=== PATIENT | female | born 1960 | race Caucasian/White ===

== ENCOUNTER → 2016-09-27 | Outpatient (CLI) | payer BC ==
[~2016-09-27] MED LIST: AMARYL2 MG PO; AMARYL4 MG PO; AMOXIL500 MG PO; APAP/HYDROCODON1 T46 PO; ASPI-COR81 M1 PO; ASPIRIN CHEWABL81 M1 PO; ASPIRIN81 M1 PO; AUGMENTIN 875 M1 TAB PO; AUGMENTIN 875875 MG PO; BIAXIN FILMTAB250 MG PO; BUTRANS10 MCG/HR TD; BYETTA10 MCG/0.0 PO; BYETTA10 MCG/0.0 SC; CAPOTEN25 MG PO; CAPTOPRIL25 MG PO; CEPHALEXIN500 M1 PO; CIPRODEX 0.3%-7.5 ML OT; CLARITIN10 MG PO; Carafate1 GM PO; DARVOCET N 1001 TAB PO; DEXILANT60 M1 PO; DEXILANT60 MG PO; DIABETA2.5 MG PO; ELAVIL25 MG PO; FIORICET 325 MG1 TAB PO; FLEXERIL10 MG PO; FLEXERIL5 MG PO; FLONASE ALLERG9.9 ML NAS; GEMFIBROZIL600 MG PO; GLUCOPHAGE500 MG PO; HUMALOG100 U/ML SC; HUMULIN R100 U/ML SC; HYDROCODONE BIT1 T11 PO; JANUVIA100 MG PO; JANUVIA50 MG PO; LANTUS100 U/ML SQ; LASIX40 MG PO; LEVEMIR10 ML SC; LEVEMIR100 U/ML SC; LOMOTIL 0.025 M1 TAB PO; LORCET 10/650 61 TA1 PO; LORCET PLUS PO; LYRICA100 M1 PO; LYRICA100 MG PO; LYRICA25 MG PO; LYRICA75 MG PO; MACROBID100 M1 PO; MOTRIN600 MG PO; MOTRIN800 MG PO; NAPROSYN500 MG PO; NIZORAL 2%15 GM PO; NORCO 325 MG-101 TAB PO; NOVOLOG FLEX100 U/ML SC; NYSTOP100000 U/G T; PERCOCET 325 MG1 TA2 PO; PHENERGAN25 M1 PO; PHENERGAN25 M3 PO; PREDNISONE10 MG PO; PREDNISONE20 M1 PO; PREDNISONE20 MG PO; PRILOSEC20 M1 PO; PRILOSEC40 MG PO; PROMETHAZINE25 M1 PO; PROMETHAZINE25 MG/M1 PO; PROTONIX40 MG PO; ROBAXIN-750750 MG PO; ROBAXIN500 MG PO; ROBITUSSIN AC 110 ML PO; ROBITUSSIN DM 105 ML PO; STARLIX120 MG PO; SYNTHROID,LEV200 MCG PO; SYNTHROID0.112 MG PO; Synthroid,Lev125 MCG PO; TOPAMAX100 MG PO; TOPAMAX200 MG PO; TORADOL10 MG PO; TRAZADONE HYDR100 MG PO; TRAZODONE HCL150 MG PO; TRESIBA FL200 UNIT/1 SC; TRESIBA FL200 UNIT/1 SQ; TRICOR145 MG PO; ULTRAM50 MG PO; VICODIN 5/500 505 MG PO; VICODIN 500 MG-1 TAB PO; VICTOZA6 MG/ML SC; VIVELLE TD; ZANTAC150 MG PO; ZITHROMAX Z PA250 MG PO; ZITHROMAX250 MG PO; ZOCOR80 MG PO; ZYRTEC10 M1 PO; ZYRTEC10 MG PO; [UNRECOGNIZED DRUG - OTHER] PO
== END | disposition home or self-care (01) ==
LOC: RAD 12:35
DX: M47.894 Other spondylosis, thoracic region (principal); R50.9 Fever, unspecified; R05 Cough; R06.02 Shortness of breath; R09.89 Other specified symptoms and signs involving the circulatory and respiratory systems; E11.9 Type 2 diabetes mellitus without complications; I10 Essential (primary) hypertension

== ENCOUNTER 2016-12-10 13:56 | Emergency (ER) | payer BC ==
[~2016-12-10 13:56] MED LIST changes: -NOVOLOG FLEX100 U/ML SC; -PHENERGAN25 M3 PO
[2016-12-10 14:56] LABS: BASO % 0.4 % (0.0-1.0); EOS # 0.2 10*3/uL (0.0-0.4); EOS % 2.5 % (1.0-4.0); HEMOGLOBIN 13.5 g/dl (12.0-16.0); LYMPH % 29.3 % (27.0-41.0); MEAN CELL VOLUME 87.3 fl (81.0-99.0); MEAN CORPUSCULAR HGB 29.5 pg (27.0-31.0); MEAN CORPUSCULAR HGB CONC 33.8 g/dl (33.0-37.0); MEAN PLATELET VOLUME 11.9 fl (9.6-12.3); MONO # 0.6 10*3/uL (0.1-1.0); NEUT # 4.1 10*3/uL (2.3-7.9); NEUT % 59.5 % (47.0-73.0); PLATELET COUNT AUTOMATED 104 10*3/uL (130-400); RED BLOOD COUNT 4.58 10*6/uL (4.10-5.10); WHITE BLOOD COUNT 6.9 10*3/uL (4.8-10.8)
[2016-12-10 15:15] LABS: ALBUMIN 3.5 gm/dl (3.1-4.5); ALKALINE PHOSPHATASE 122 U/L (45-117); BILIRUBIN, TOTAL 0.2 mg/dl (0.2-1.0); BUN 23 mg/dl (7-24); CARBON DIOXIDE 23 mmol/L (21-32); CHLORIDE 102 mmol/L (98-107); EST GLOM FILT AFRICAN AMERICAN > 60 ml/min; GLUCOSE 368 mg/dL (65-99); POTASSIUM 3.9 mmol/L (3.5-5.1); SGOT/AST 17 IU/L (3-35); SGPT/ALT 28 U/L (12-78); SODIUM 138 mmol/L (136-145); TOTAL PROTEIN 7.2 gm/dL (6.4-8.2)
[2016-12-10] MEDS ORDERED: TRESIBA FL200 UNIT/1 SQ (17:21)
[2016-12-10] MEDS ORDERED: HUMALOG100 U/ML SC (17:21)
[2016-12-10] MEDS ORDERED: NOVOLOG FLEX100 U/ML SC (17:24)
[2016-12-10] MEDS ORDERED: PHENERGAN25 M3 PO (17:25)
== END 2016-12-10 17:34 | disposition home or self-care (01) ==
LOC: ED 13:56
PROVIDERS: Physician Assistant
DX: E11.65 Type 2 diabetes mellitus with hyperglycemia (principal); Z76.0 Encounter for issue of repeat prescription; Z90.49 Acquired absence of other specified parts of digestive tract; Z90.710 Acquired absence of both cervix and uterus; Z98.890 Other specified postprocedural states; Z79.4 Long term (current) use of insulin; Z88.5 Allergy status to narcotic agent; Z88.1 Allergy status to other antibiotic agents; Z88.8 Allergy status to other drugs, medicaments and biological substances

== ENCOUNTER 2017-01-29 17:04 | Emergency (ER) | payer BC ==
[~2017-01-29] VITALS: Wt 97.1 kg
[~2017-01-29 17:04] MED LIST changes: +NOVOLOG FLEX100 U/ML SC; +PHENERGAN25 M3 PO
[2017-01-29] MEDS ORDERED: FELDENE20 MG PO (17:07)
[2017-01-29] MEDS ORDERED: CEPHALEXIN500 M1 PO (20:20)
== END 2017-01-29 20:23 | disposition home or self-care (01) ==
LOC: ED 17:04
DX: L03.116 Cellulitis of left lower limb (principal); Z90.49 Acquired absence of other specified parts of digestive tract; Z79.4 Long term (current) use of insulin; Z95.5 Presence of coronary angioplasty implant and graft; Z88.1 Allergy status to other antibiotic agents; Z88.6 Allergy status to analgesic agent; Z88.8 Allergy status to other drugs, medicaments and biological substances

== ENCOUNTER 2017-02-03 17:21 | Inpatient (IN) | payer BC ==
[~2017-02-03] VITALS: Ht 162.6 cm; Wt 105.5 kg
[~2017-02-03 17:21] MED LIST changes: +FELDENE20 MG PO
[2017-02-03 17:28] VITALS: BP 146/84
[2017-02-03 17:48] LABS: BILIRUBIN NEGATIVE (NEGATIVE); BLOOD NEGATIVE (NEGATIVE); CLARITY CLEAR (CLEAR); COLOR YELLOW (YELLOW); GLUCOSE TRACE (NEGATIVE); KETONE NEGATIVE (NEGATIVE); LEUKO ESTERASE 1+ (NEGATIVE); NITRITE NEGATIVE (NEGATIVE); PROTEIN NEGATIVE (NEGATIVE); SPECIFIC GRAVITY 1.025 (1.005-1.030); UROBILINOGEN 0.2 E.U./dl (0.2-1.0)
[2017-02-03 17:51] LABS: BASO % 0.4 % (0.0-1.0); EOS # 0.1 10*3/uL (0.0-0.4); EOS % 2.3 % (1.0-4.0); HEMATOCRIT 41.7 % (37.0-47.0); HEMOGLOBIN 13.9 g/dl (12.0-16.0); LYMPH # 2.1 10*3/uL (1.3-4.4); LYMPH % 37.4 % (27.0-41.0); MEAN CELL VOLUME 89.5 fl (81.0-99.0); MEAN CORPUSCULAR HGB 29.8 pg (27.0-31.0); MEAN CORPUSCULAR HGB CONC 33.3 g/dl (33.0-37.0); MEAN PLATELET VOLUME 12.6 fl (9.6-12.3); MONO # 0.4 10*3/uL (0.1-1.0); MONO % 7.7 % (3.0-9.0); NEUT % 51.8 % (47.0-73.0); PLATELET COUNT AUTOMATED 99 10*3/uL (130-400); RED BLOOD COUNT 4.66 10*6/uL (4.10-5.10); RED CELL DISTRI WIDTH 13.4 % (0-14.5); WHITE BLOOD COUNT 5.7 10*3/uL (4.8-10.8)
[2017-02-03 18:03] LABS: BACTERIA TRACE; HYALINE CAST 0-2; URINE REFLEX COMMENT YES (NO)
[2017-02-03 18:07] LABS: ALBUMIN 3.5 gm/dl (3.1-4.5); BILIRUBIN, TOTAL 0.2 mg/dl (0.2-1.0); POTASSIUM 3.7 mmol/L (3.5-5.1); TOTAL PROTEIN 7.3 gm/dL (6.4-8.2)
[2017-02-03 19:47] VITALS: BP 126/70
[2017-02-03 20:30] VITALS: BP 130/78
[2017-02-04] VITALS: BP 111/63
[2017-02-04 00:40] LABS: CPK 56 U/L (26-192)
[2017-02-04 00:41] LABS: CKMB 1.4 ng/ml (0.5-3.6)
[2017-02-04 00:42] LABS: TROPONIN I < 0.015 ng/ml (<0.045)
[2017-02-04 06:20] LABS: BASO % 0.4 % (0.0-1.0); EOS # 0.1 10*3/uL (0.0-0.4); EOS % 2.4 % (1.0-4.0); HEMATOCRIT 39.3 % (37.0-47.0); HEMOGLOBIN 13.1 g/dl (12.0-16.0); LYMPH # 1.8 10*3/uL (1.3-4.4); LYMPH % 40.7 % (27.0-41.0); MEAN CELL VOLUME 90.3 fl (81.0-99.0); MEAN CORPUSCULAR HGB 30.1 pg (27.0-31.0); MEAN CORPUSCULAR HGB CONC 33.3 g/dl (33.0-37.0); MEAN PLATELET VOLUME 12.1 fl (9.6-12.3); MONO # 0.4 10*3/uL (0.1-1.0); MONO % 9.3 % (3.0-9.0); NEUT # 2.1 10*3/uL (2.3-7.9); NEUT % 46.8 % (47.0-73.0); PLATELET COUNT AUTOMATED 88 10*3/uL (130-400); RED BLOOD COUNT 4.35 10*6/uL (4.10-5.10); RED CELL DISTRI WIDTH 13.6 % (0-14.5); WHITE BLOOD COUNT 4.5 10*3/uL (4.8-10.8)
[2017-02-04 06:31] LABS: CPK 48 U/L (26-192)
[2017-02-04 06:32] LABS: TROPONIN I < 0.015 ng/ml (<0.045)
[2017-02-04 06:58] LABS: ALKALINE PHOSPHATASE 94 U/L (45-117); BILIRUBIN, TOTAL 0.3 mg/dl (0.2-1.0); BUN 32 mg/dl (7-24); CARBON DIOXIDE 25 mmol/L (21-32); CHLORIDE 112 mmol/L (98-107); CHOLESTEROL 141 mg/dL (<200); EST GLOM FILT AFRICAN AMERICAN > 60 ml/min; FREE T4 1.19 ng/dl (0.76-1.46); GLUCOSE 119 mg/dL (65-99); HDL CHOLESTEROL 36 mg/dl (40-60); LDL CHOLESTEROL 49 mg/dL (9-159); MAGNESIUM 1.8 mg/dL (1.5-2.1); PHOSPHOROUS 4.4 mg/dL (2.5-4.9); POTASSIUM 3.6 mmol/L (3.5-5.1); SGOT/AST 18 IU/L (3-35); SGPT/ALT 26 U/L (12-78); SODIUM 146 mmol/L (136-145); TOTAL PROTEIN 6.1 gm/dL (6.4-8.2); TRIGLYCERIDES 281 mg/dl (<150); VLDL CHOLESTEROL 56 mg/dL (6-40)
[2017-02-04 07:00] LABS: PROTHROMBIN TIME 10.7 SECONDS (9.0-12.4)
[2017-02-04 08:00] VITALS: BP 128/84
[2017-02-04 09:12] LABS: FOLIC ACID 7.67 ng/mL (>5.38); VITAMIN D, 25-HYDROXY 25.1 ng/mL (30-100)
[2017-02-04] MEDS ORDERED: ASPIR LOW81 MG PO (10:07)
[2017-02-04] MEDS ORDERED: ATORVASTATIN CA40 M1 PO (10:09)
[2017-02-04 12:00] VITALS: BP 114/67
[2017-02-04 12:28] LABS: CKMB 0.9 ng/ml (0.5-3.6); CPK 49 U/L (26-192); TROPONIN I < 0.015 ng/ml (<0.045)
[2017-02-04 16:00] VITALS: BP 124/72
[2017-02-04 20:00] VITALS: BP 106/75
[2017-02-05] VITALS: BP 100/58
[2017-02-05 06:10] LABS: BASO % 0.8 % (0.0-1.0); EOS # 0.2 10*3/uL (0.0-0.4); EOS % 3.2 % (1.0-4.0); HEMOGLOBIN 12.6 g/dl (12.0-16.0); LYMPH # 1.8 10*3/uL (1.3-4.4); LYMPH % 37.3 % (27.0-41.0); MEAN CELL VOLUME 91.5 fl (81.0-99.0); MEAN CORPUSCULAR HGB 29.6 pg (27.0-31.0); MEAN CORPUSCULAR HGB CONC 32.3 g/dl (33.0-37.0); MEAN PLATELET VOLUME 12.5 fl (9.6-12.3); MONO # 0.4 10*3/uL (0.1-1.0); MONO % 8.2 % (3.0-9.0); NEUT # 2.4 10*3/uL (2.3-7.9); NEUT % 50.3 % (47.0-73.0); PLATELET COUNT AUTOMATED 80 10*3/uL (130-400); RED BLOOD COUNT 4.26 10*6/uL (4.10-5.10); RED CELL DISTRI WIDTH 13.7 % (0-14.5); WHITE BLOOD COUNT 4.7 10*3/uL (4.8-10.8)
[2017-02-05 06:40] LABS: ALBUMIN 2.8 gm/dl (3.1-4.5); ALKALINE PHOSPHATASE 74 U/L (45-117); BILIRUBIN, TOTAL 0.3 mg/dl (0.2-1.0); CARBON DIOXIDE 25 mmol/L (21-32); CHLORIDE 115 mmol/L (98-107); GLUCOSE 144 mg/dL (65-99); POTASSIUM 3.4 mmol/L (3.5-5.1); SGOT/AST 29 IU/L (3-35); SGPT/ALT 31 U/L (12-78); SODIUM 147 mmol/L (136-145); TOTAL PROTEIN 5.9 gm/dL (6.4-8.2)
[2017-02-05 06:42] LABS: BUN 20 mg/dl (7-24); EST GLOM FILT AFRICAN AMERICAN > 60 ml/min
[2017-02-05 08:00] VITALS: BP 107/66
[2017-02-05 12:00] VITALS: BP 137/72
[2017-02-05 16:00] VITALS: BP 116/59
[2017-02-05 20:00] VITALS: BP 128/70
[2017-02-06] VITALS: BP 121/65
[2017-02-06 08:00] VITALS: BP 134/68
[2017-02-06 12:00] VITALS: BP 120/69
[2017-02-06 16:00] VITALS: BP 100/56
[2017-02-06 20:00] VITALS: BP 149/81
[2017-02-07] VITALS: BP 116/61
[2017-02-07 06:58] LABS: BASO % 0.6 % (0.0-1.0); EOS # 0.2 10*3/uL (0.0-0.4); EOS % 3.3 % (1.0-4.0); HEMATOCRIT 37.7 % (37.0-47.0); HEMOGLOBIN 12.3 g/dl (12.0-16.0); LYMPH # 1.7 10*3/uL (1.3-4.4); LYMPH % 34.5 % (27.0-41.0); MEAN CELL VOLUME 91.5 fl (81.0-99.0); MEAN CORPUSCULAR HGB 29.9 pg (27.0-31.0); MEAN CORPUSCULAR HGB CONC 32.6 g/dl (33.0-37.0); MEAN PLATELET VOLUME 11.7 fl (9.6-12.3); MONO # 0.5 10*3/uL (0.1-1.0); MONO % 9.6 % (3.0-9.0); NEUT # 2.5 10*3/uL (2.3-7.9); NEUT % 51.8 % (47.0-73.0); PLATELET COUNT AUTOMATED 77 10*3/uL (130-400); RED BLOOD COUNT 4.12 10*6/uL (4.10-5.10); RED CELL DISTRI WIDTH 13.6 % (0-14.5); WHITE BLOOD COUNT 4.9 10*3/uL (4.8-10.8)
[2017-02-07 07:31] LABS: PROTHROMBIN TIME 10.3 SECONDS (9.0-12.4)
[2017-02-07 07:32] LABS: CHLORIDE 113 mmol/L (98-107); POTASSIUM 4.1 mmol/L (3.5-5.1); SODIUM 143 mmol/L (136-145)
[2017-02-07 07:56] LABS: ALBUMIN 2.8 gm/dl (3.1-4.5); ALKALINE PHOSPHATASE 101 U/L (45-117); BILIRUBIN, TOTAL 0.3 mg/dl (0.2-1.0); BUN 18 mg/dl (7-24); CARBON DIOXIDE 25 mmol/L (21-32); EST GLOM FILT AFRICAN AMERICAN > 60 ml/min; GLUCOSE 263 mg/dL (65-99); SGOT/AST 20 IU/L (3-35); SGPT/ALT 30 U/L (12-78); TOTAL PROTEIN 6.1 gm/dL (6.4-8.2)
[2017-02-07 08:00] VITALS: BP 116/61; BP 128/72
[2017-02-07 12:00] VITALS: BP 130/75
[2017-02-07] MEDS ORDERED: VITAMIN D400 I1 PO (13:53)
[2017-02-07] MEDS ORDERED: CEPHALEXIN500 M1 PO (14:08)
== END 2017-02-07 16:05 | disposition home or self-care (01) | DRG 683 ==
LOC: ED 17:21 → EDHOLD 19:42 → 5E 19:42
PROVIDERS: Internal Medicine; Registered Nurse
DX: N17.0 Acute kidney failure with tubular necrosis (principal); E44.1 Mild protein-calorie malnutrition; E87.0 Hyperosmolality and hypernatremia; E11.65 Type 2 diabetes mellitus with hyperglycemia; D69.6 Thrombocytopenia, unspecified; E87.8 Other disorders of electrolyte and fluid balance, not elsewhere classified; K86.1 Other chronic pancreatitis; E55.9 Vitamin D deficiency, unspecified; E78.1 Pure hyperglyceridemia; I10 Essential (primary) hypertension; E03.9 Hypothyroidism, unspecified; G43.909 Migraine, unspecified, not intractable, without status migrainosus; G47.00 Insomnia, unspecified; E87.6 Hypokalemia; Z90.49 Acquired absence of other specified parts of digestive tract; Z90.710 Acquired absence of both cervix and uterus; Z82.49 Family history of ischemic heart disease and other diseases of the circulatory system; Z88.6 Allergy status to analgesic agent; Z88.1 Allergy status to other antibiotic agents; Z88.8 Allergy status to other drugs, medicaments and biological substances; Z79.82 Long term (current) use of aspirin; Z79.4 Long term (current) use of insulin; Z79.899 Other long term (current) drug therapy; Z68.36 Body mass index [BMI] 36.0-36.9, adult

== ENCOUNTER 2017-02-15 15:16 | Inpatient (IN) | payer BC ==
[~2017-02-15] VITALS: Ht 162.5 cm; Wt 104.1 kg
--- NOTE | ~2017-02-15 | CON ---
[place], [place] REPORT OF CONSULTATION NAME: CHRIS [facility]RIA [facility] [id number] UNIT #: [id number] ROOM: 415 DOCTOR: LEXY JACKSONKITTY BIRTHDATE: [birth year] DOS: 02/16/2017 HISTORY OF PRESENT ILLNESS: The patient is 56-year-old patient who has presented with multiple medical issues among which has been rectal pain and some blood on the stool. She received a CT scan of the abdomen and pelvis. No inflammatory process was seen. Urinalysis remained unremarkable. White blood cell was 6, H and H of 13 and 38. Lactic acid 1.4. Comprehensive metabolic panel, BUN and creatinine 31 and 1.08. Electrolytes balanced. Liver function test normal. Lipase 464. INR 0.9. CT scan of the abdomen reassessed. Labs and records on the chart. CBC differential within normal limits. No acute findings. The patient has had a colonoscopy several months ago by Dr. Granado. PAST MEDICAL HISTORY: Hypertension, triglyceridemia, obesity, hypothyroidism, diabetes mellitus, hemorrhoids, seizure disorder. PAST SURGICAL HISTORY: Cholecystectomy, appendectomy, , exploratory laparotomy, arthroscopies, parathyroidectomy. SOCIAL HISTORY: Nonsmoker at the present time. Nonalcohol consumer at the present time. FAMILY HISTORY: Noncontributory. MEDICATIONS: List has been reviewed. REVIEW OF SYSTEMS: HEENT: Denies double vision, blurred vision. RESPIRATORY: Denies acute shortness of breath. CARDIOVASCULAR: Denies acute chest pain. DIGESTIVE SYSTEM: Rectal pain and bleed. PHYSICAL EXAMINATION: GENERAL: Obese patient comfortable, nontoxic. HEENT: Head normocephalic, nontraumatic. Mouth and buccal mucosa benign. NECK: Supple, no thyromegaly, no cervical lymphadenopathy. CHEST: Symmetric anatomy, equal expansion. No wheeze, no rhonchi. HEART: Normal sinus rhythm, no gallop, no murmur. ABDOMEN: Obese, soft. No hepato-organomegaly. Bowel sounds present. No pulsatile mass. EXTREMITIES: No cyanosis, no pedal edema. NEUROLOGIC: Alert, oriented to time, place, person. IMPRESSION: Rectal examination did not show any blood in the stool, small hemorrhoids was noticed. PLAN AND DISCUSSION: Anucort-HC suppositories 1 b.i.d. while inpatient and we are going to organize assessment of the upper GI tract due to the thickness of distal esophagus concerned as well reassessment of the hemorrhoids. Thank you very much indeed for your kind referral. [place], [place] REPORT OF CONSULTATION NAME: CHRIS ECHEVERRIA UNIT #: [id number] ROOM: [facility] DOCTOR: KITTY PUGH MD BIRTHDATE: [birth year] KITTY PUGH MD CM:CONSTR:REPORT OF CONSULTATION 1242 02/17/17 0632 interface
[~2017-02-15 15:16] MED LIST changes: +ASPIR LOW81 MG PO; +ATORVASTATIN CA40 M1 PO; +VITAMIN D400 I1 PO
[2017-02-15 15:30] VITALS: BP 146/79
[2017-02-15 16:11] LABS: BILIRUBIN NEGATIVE (NEGATIVE); BLOOD NEGATIVE (NEGATIVE); CLARITY CLEAR (CLEAR); COLOR YELLOW (YELLOW); GLUCOSE 3+ (NEGATIVE); KETONE NEGATIVE (NEGATIVE); LEUKO ESTERASE TRACE (NEGATIVE); NITRITE NEGATIVE (NEGATIVE); PROTEIN NEGATIVE (NEGATIVE); UROBILINOGEN 0.2 E.U./dl (0.2-1.0)
[2017-02-15 16:23] LABS: EPITHELIAL CELLS 0-2; URINE REFLEX COMMENT YES (NO)
[2017-02-15 16:33] LABS: BASO % 0.5 % (0.0-1.0); EOS # 0.1 10*3/uL (0.0-0.4); EOS % 2.2 % (1.0-4.0); HEMATOCRIT 38.9 % (37.0-47.0); HEMOGLOBIN 13.5 g/dl (12.0-16.0); LYMPH % 30.3 % (27.0-41.0); MEAN CELL VOLUME 87.2 fl (81.0-99.0); MEAN CORPUSCULAR HGB 30.3 pg (27.0-31.0); MEAN CORPUSCULAR HGB CONC 34.7 g/dl (33.0-37.0); MEAN PLATELET VOLUME 12.3 fl (9.6-12.3); MONO # 0.5 10*3/uL (0.1-1.0); NEUT # 3.8 10*3/uL (2.3-7.9); NEUT % 58.7 % (47.0-73.0); PLATELET COUNT AUTOMATED 99 10*3/uL (130-400); RED BLOOD COUNT 4.46 10*6/uL (4.10-5.10); RED CELL DISTRI WIDTH 13.3 % (0-14.5); WHITE BLOOD COUNT 6.5 10*3/uL (4.8-10.8)
[2017-02-15 16:43] LABS: INTERNATIONAL NORM RATIO 0.9 (2.0-3.5)
[2017-02-15 16:48] LABS: ALBUMIN 3.8 gm/dl (3.1-4.5); ALKALINE PHOSPHATASE 136 U/L (45-117); BILIRUBIN, TOTAL 0.2 mg/dl (0.2-1.0); BUN 31 mg/dl (7-24); C-REACTIVE PROTEIN 1.05 MG/DL (0-0.3); CARBON DIOXIDE 24 mmol/L (21-32); CHLORIDE 107 mmol/L (98-107); CPK 56 U/L (26-192); EST GLOM FILT AFRICAN AMERICAN > 60 ml/min; GLUCOSE 317 mg/dL (65-99); MAGNESIUM 1.6 mg/dL (1.5-2.1); POTASSIUM 3.6 mmol/L (3.5-5.1); SGOT/AST 16 IU/L (3-35); SGPT/ALT 27 U/L (12-78); SODIUM 142 mmol/L (136-145); TOTAL PROTEIN 7.4 gm/dL (6.4-8.2)
[2017-02-15 16:49] LABS: CKMB < 0.5 ng/ml (0.5-3.6); TROPONIN I < 0.015 ng/ml (<0.045)
[2017-02-15 17:10] VITALS: BP 147/78
[2017-02-15 20:00] VITALS: BP 146/95
[2017-02-15] MEDS ORDERED: NOVOLOG FLEX100 U/ML SQ (20:54)
[2017-02-16] VITALS: BP 136/88
[2017-02-16 07:17] LABS: BUN 23 mg/dl (7-24); CARBON DIOXIDE 20 mmol/L (21-32); CHLORIDE 111 mmol/L (98-107); EST GLOM FILT AFRICAN AMERICAN > 60 ml/min; GLUCOSE 240 mg/dL (65-99); POTASSIUM 3.9 mmol/L (3.5-5.1); SODIUM 141 mmol/L (136-145)
[2017-02-16 07:45] LABS: BASO % 0.5 % (0.0-1.0); EOS # 0.3 10*3/uL (0.0-0.4); EOS % 3.9 % (1.0-4.0); HEMATOCRIT 37.5 % (37.0-47.0); HEMOGLOBIN 12.6 g/dl (12.0-16.0); LYMPH # 2.1 10*3/uL (1.3-4.4); LYMPH % 32.3 % (27.0-41.0); MEAN CELL VOLUME 88.4 fl (81.0-99.0); MEAN CORPUSCULAR HGB 29.7 pg (27.0-31.0); MEAN CORPUSCULAR HGB CONC 33.6 g/dl (33.0-37.0); MEAN PLATELET VOLUME 12.3 fl (9.6-12.3); MONO # 0.6 10*3/uL (0.1-1.0); NEUT # 3.4 10*3/uL (2.3-7.9); PLATELET COUNT AUTOMATED 99 10*3/uL (130-400); RED BLOOD COUNT 4.24 10*6/uL (4.10-5.10); RED CELL DISTRI WIDTH 13.5 % (0-14.5); WHITE BLOOD COUNT 6.4 10*3/uL (4.8-10.8)
[2017-02-16 08:00] VITALS: BP 136/86
[2017-02-16 12:00] VITALS: BP 152/76
[2017-02-16 16:00] VITALS: BP 131/76
[2017-02-16 20:00] VITALS: BP 122/72
[2017-02-17] VITALS: BP 133/78
[2017-02-17 05:55] LABS: BUN 25 mg/dl (7-24); CARBON DIOXIDE 24 mmol/L (21-32); CHLORIDE 114 mmol/L (98-107); EST GLOM FILT AFRICAN AMERICAN > 60 ml/min; GLUCOSE 267 mg/dL (65-99); SODIUM 148 mmol/L (136-145)
[2017-02-17 05:59] LABS: BASO % 0.6 % (0.0-1.0); EOS # 0.2 10*3/uL (0.0-0.4); EOS % 4.3 % (1.0-4.0); HEMATOCRIT 35.5 % (37.0-47.0); HEMOGLOBIN 11.8 g/dl (12.0-16.0); LYMPH # 2.1 10*3/uL (1.3-4.4); MEAN CELL VOLUME 90.8 fl (81.0-99.0); MEAN CORPUSCULAR HGB 30.2 pg (27.0-31.0); MEAN CORPUSCULAR HGB CONC 33.2 g/dl (33.0-37.0); MEAN PLATELET VOLUME 12.3 fl (9.6-12.3); MONO # 0.5 10*3/uL (0.1-1.0); MONO % 9.3 % (3.0-9.0); NEUT # 2.6 10*3/uL (2.3-7.9); NEUT % 47.6 % (47.0-73.0); PLATELET COUNT AUTOMATED 82 10*3/uL (130-400); RED BLOOD COUNT 3.91 10*6/uL (4.10-5.10); RED CELL DISTRI WIDTH 13.5 % (0-14.5); WHITE BLOOD COUNT 5.4 10*3/uL (4.8-10.8)
[2017-02-17 08:00] VITALS: BP 120/70
[2017-02-17] MEDS ORDERED: Anusol Hc,Anuco25 MG R (10:18)
[2017-02-17] MEDS ORDERED: PROTONIX40 MG PO (15:15)
== END 2017-02-17 10:53 | disposition home or self-care (01) | DRG 377 ==
LOC: ED 15:16 → EDHOLD 18:53 → 4E 19:21
PROVIDERS: Emergency Medicine; Internal Medicine
DX: K92.2 Gastrointestinal hemorrhage, unspecified (principal); N17.0 Acute kidney failure with tubular necrosis; D69.6 Thrombocytopenia, unspecified; R56.9 Unspecified convulsions; R13.10 Dysphagia, unspecified; E87.0 Hyperosmolality and hypernatremia; K20.8 Other esophagitis; I10 Essential (primary) hypertension; E03.9 Hypothyroidism, unspecified; E78.1 Pure hyperglyceridemia; E11.9 Type 2 diabetes mellitus without complications; K64.8 Other hemorrhoids; E55.9 Vitamin D deficiency, unspecified; E66.9 Obesity, unspecified; G47.00 Insomnia, unspecified; Z87.440 Personal history of urinary (tract) infections; Z90.49 Acquired absence of other specified parts of digestive tract; Z90.710 Acquired absence of both cervix and uterus; Z87.891 Personal history of nicotine dependence; Z82.49 Family history of ischemic heart disease and other diseases of the circulatory system; Z88.6 Allergy status to analgesic agent; Z88.1 Allergy status to other antibiotic agents; Z88.8 Allergy status to other drugs, medicaments and biological substances; Z79.82 Long term (current) use of aspirin; Z79.899 Other long term (current) drug therapy; Z79.4 Long term (current) use of insulin

== ENCOUNTER → 2017-02-19 | Outpatient (CLI) | payer BC ==
[~2017-02-19] MED LIST changes: +Anusol Hc,Anuco25 MG R; +NOVOLOG FLEX100 U/ML SQ
[2017-02-19 15:54] LABS: BASO % 0.5 % (0.0-1.0); EOS # 0.2 10*3/uL (0.0-0.4); EOS % 2.9 % (1.0-4.0); HEMATOCRIT 36.1 % (37.0-47.0); HEMOGLOBIN 11.9 g/dl (12.0-16.0); LYMPH # 2.2 10*3/uL (1.3-4.4); LYMPH % 35.2 % (27.0-41.0); MEAN CELL VOLUME 89.8 fl (81.0-99.0); MEAN CORPUSCULAR HGB 29.6 pg (27.0-31.0); MEAN PLATELET VOLUME 11.8 fl (9.6-12.3); MONO # 0.6 10*3/uL (0.1-1.0); MONO % 9.1 % (3.0-9.0); NEUT # 3.2 10*3/uL (2.3-7.9); PLATELET COUNT AUTOMATED 75 10*3/uL (130-400); RED BLOOD COUNT 4.02 10*6/uL (4.10-5.10); RED CELL DISTRI WIDTH 13.5 % (0-14.5); WHITE BLOOD COUNT 6.2 10*3/uL (4.8-10.8)
[2017-02-19 16:06] LABS: BUN 24 mg/dl (7-24); CARBON DIOXIDE 22 mmol/L (21-32); CHLORIDE 110 mmol/L (98-107); EST GLOM FILT AFRICAN AMERICAN > 60 ml/min; GLUCOSE 380 mg/dL (65-99); POTASSIUM 4.2 mmol/L (3.5-5.1); SODIUM 140 mmol/L (136-145)
== END | disposition home or self-care (01) ==
LOC: LAB 15:23
PROVIDERS: Internal Medicine
DX: K92.2 Gastrointestinal hemorrhage, unspecified (principal); N17.0 Acute kidney failure with tubular necrosis

== ENCOUNTER 2017-02-26 19:10 | Emergency (ER) | payer BC ==
[~2017-02-26] VITALS: Ht 162.5 cm; Wt 97.1 kg
[2017-02-26 21:04] LABS: BASO # 0.1 10*3/uL (0.0-0.1); BASO % 0.7 % (0.0-1.0); EOS # 0.2 10*3/uL (0.0-0.4); EOS % 3.3 % (1.0-4.0); HEMATOCRIT 40.7 % (37.0-47.0); HEMOGLOBIN 13.6 g/dl (12.0-16.0); LYMPH # 2.3 10*3/uL (1.3-4.4); LYMPH % 31.9 % (27.0-41.0); MEAN CELL VOLUME 88.3 fl (81.0-99.0); MEAN CORPUSCULAR HGB 29.5 pg (27.0-31.0); MEAN CORPUSCULAR HGB CONC 33.4 g/dl (33.0-37.0); MEAN PLATELET VOLUME 12.1 fl (9.6-12.3); MONO # 0.7 10*3/uL (0.1-1.0); MONO % 9.3 % (3.0-9.0); NEUT % 54.5 % (47.0-73.0); PLATELET COUNT AUTOMATED 99 10*3/uL (130-400); RED BLOOD COUNT 4.61 10*6/uL (4.10-5.10); RED CELL DISTRI WIDTH 13.8 % (0-14.5); WHITE BLOOD COUNT 7.2 10*3/uL (4.8-10.8)
[2017-02-26 21:21] LABS: ALBUMIN 3.6 gm/dl (3.1-4.5); ALKALINE PHOSPHATASE 149 U/L (45-117); BILIRUBIN, DIRECT < 0.1 mg/dL (0.0-0.2); BILIRUBIN, TOTAL 0.2 mg/dl (0.2-1.0); BUN 29 mg/dl (7-24); CARBON DIOXIDE 26 mmol/L (21-32); CHLORIDE 105 mmol/L (98-107); EST GLOM FILT AFRICAN AMERICAN > 60 ml/min; GLUCOSE 324 mg/dL (65-99); MAGNESIUM 1.8 mg/dL (1.5-2.1); POTASSIUM 3.8 mmol/L (3.5-5.1); SGOT/AST 15 IU/L (3-35); SGPT/ALT 26 U/L (12-78); SODIUM 141 mmol/L (136-145); TOTAL PROTEIN 7.2 gm/dL (6.4-8.2)
[2017-02-26 21:56] LABS: BILIRUBIN NEGATIVE (NEGATIVE); BLOOD NEGATIVE (NEGATIVE); CLARITY CLEAR (CLEAR); COLOR YELLOW (YELLOW); GLUCOSE 3+ (NEGATIVE); KETONE NEGATIVE (NEGATIVE); LEUKO ESTERASE TRACE (NEGATIVE); NITRITE NEGATIVE (NEGATIVE); PROTEIN NEGATIVE (NEGATIVE); SPECIFIC GRAVITY 1.015 (1.005-1.030); UROBILINOGEN 0.2 E.U./dl (0.2-1.0)
[2017-02-26 22:23] LABS: BACTERIA TRACE; URINE REFLEX COMMENT YES (NO); WBC 21-30 wbc/hpf (0-5)
== END 2017-02-27 03:16 | disposition home or self-care (01) ==
LOC: ED 19:10
PROVIDERS: Emergency Medicine
DX: R73.9 Hyperglycemia, unspecified (principal); M79.632 Pain in left forearm; M79.675 Pain in left toe(s); M25.512 Pain in left shoulder; R42 Dizziness and giddiness; I10 Essential (primary) hypertension; E03.9 Hypothyroidism, unspecified; E11.9 Type 2 diabetes mellitus without complications; G43.909 Migraine, unspecified, not intractable, without status migrainosus; Z79.899 Other long term (current) drug therapy; Z79.82 Long term (current) use of aspirin; Z79.4 Long term (current) use of insulin; Z88.1 Allergy status to other antibiotic agents; Z88.6 Allergy status to analgesic agent; Z88.8 Allergy status to other drugs, medicaments and biological substances

== ENCOUNTER → 2017-03-02 | Day surgery (SDC) | payer BC ==
[~2017-03-02] VITALS: Ht 162.5 cm; Wt 97.1 kg
--- NOTE | ~2017-03-02 | PROC NOTE ---
[place], [place] PROCEDURE NOTE NAME: CHRIS ECHEVERRIA [facility] #: [id number] UNIT #: [id number] ROOM: DOCTOR: GAYLE VYAS MD BIRTHDATE: [birth year] DOS: 03/02/2017 PREOPERATIVE DIAGNOSIS: Lower gastrointestinal bleed. POSTOPERATIVE DIAGNOSES: Gastritis, duodenitis, hiatal hernia. PROCEDURE: Esophagogastroduodenoscopy with antral biopsies x 2, colonoscopy. ENDOSCOPIST: Gayle Vyas MD PROFESSOR OF MUSIC: MS3. ANESTHESIA: MAC. INDICATIONS: This is a 56-year-old lady with a history of lower GI bleed, who is here for the above-mentioned procedures. The procedure and its complications explained to the patient in detail preoperatively. Complications that were discussed included but were not limited to bleeding, colon perforation, gastric perforation, and missed lesions. She agreed to proceed. DESCRIPTION OF PROCEDURE: After identifying the patient, the patient was brought to the endoscopy suite and placed in the left lateral position. After IV sedation administered, a time-out procedure was called. A bite block was placed. It was decided to proceed with the EGD first. An adult gastroscope was now placed through the bite block into the mouth and advanced sequentially into the pharynx, esophagus and into the stomach. There was found to be mild antral gastritis and upon entering the duodenum, there was found to be some mild duodenitis seen in the first 2 parts of the duodenum. Upon withdrawal of the scope into the stomach, it was retroflexed and there was no evidence of any active bleeding or ulceration that could be seen in the rest of the stomach. Two biopsies in the region of the antrum were taken and sent for histopathological diagnosis. Upon withdrawal of the scope, there was a small hiatal hernia that was identified. There was no evidence of any bleeding in the esophagus. The scope was then withdrawn and at this point, the colonoscopy was begun. A digital rectal exam was performed, which was within normal limits. An adult colonoscope was now introduced into the anal canal and advanced sequentially into the rectum, sigmoid colon, descending colon, transverse colon and ascending colon up to the cecum. The prep was found to be suboptimal in the few areas and on multiple occasions, liquid stool had to be sucked away and irrigation fluid was used to clean the area to be visualized. Upon reaching the cecum, the scope was withdrawn. Total withdrawal time was approximately 7 minutes. There were no obvious bleeding lesions or any mucosal lesions that were identified. No polyps were identified. The scope was then withdrawn and the patient was taken to the recovery room in stable fashion. There were internal hemorrhoids that were visualized, but they were not bleeding. Based on these findings, the patient is recommended to have another colonoscopy in 10 years or sooner if there were new symptoms. I have discussed these findings with the patient's in the postoperative recovery room and will discuss the findings with this patient herself when I see her in the office for postoperative recovery visit. [place], [place] PROCEDURE NOTE NAME: CHRIS ECHEVERRIA UNIT #: [id number] ROOM: DOCTOR: GAYLE VYAS MD BIRTHDATE: [birth year] Gayle Vyas MD CM:PROCNOTE:PROCEDURE NOTE 6 17 GAYLE VYAS MD
[2017-03-02 07:30] VITALS: BP 122/71
[2017-03-02 08:59] VITALS: BP 114/60
[2017-03-02 09:13] VITALS: BP 128/66
[2017-03-02 09:29] VITALS: BP 135/82
== END | disposition home or self-care (01) ==
LOC: SDC 02-27 08:45
DX: K64.8 Other hemorrhoids (principal); K29.50 Unspecified chronic gastritis without bleeding; K29.80 Duodenitis without bleeding; K44.9 Diaphragmatic hernia without obstruction or gangrene; I10 Essential (primary) hypertension; E11.9 Type 2 diabetes mellitus without complications; E07.9 Disorder of thyroid, unspecified; F41.9 Anxiety disorder, unspecified; F32.9 Major depressive disorder, single episode, unspecified; J45.909 Unspecified asthma, uncomplicated; I00 Rheumatic fever without heart involvement; J43.9 Emphysema, unspecified; G47.00 Insomnia, unspecified; Z98.890 Other specified postprocedural states; Z82.49 Family history of ischemic heart disease and other diseases of the circulatory system; Z83.3 Family history of diabetes mellitus; Z87.891 Personal history of nicotine dependence

== ENCOUNTER 2017-03-23 10:47 | Inpatient (IN) | payer BC ==
[~2017-03-23] VITALS: Ht 162.5 cm; Wt 103.4 kg
[2017-03-23 10:53] VITALS: BP 164/72
[2017-03-23 15:40] VITALS: BP 156/88
[2017-03-23 16:00] VITALS: BP 133/78
[2017-03-23] MEDS ORDERED: FUROSEMIDE40 MG PO (16:18)
[2017-03-23] MEDS ORDERED: CAPTOPRIL25 MG PO (16:19)
[2017-03-23] MEDS ORDERED: JANUVIA100 MG PO (16:19)
[2017-03-23] MEDS ORDERED: PIROXICAM PO (16:19)
[2017-03-23 18:05] LABS: CKMB 1.2 ng/ml (0.5-3.6)
[2017-03-23 20:00] VITALS: BP 110/77
[2017-03-24] VITALS: BP 110/50
[2017-03-24 00:44] LABS: CKMB 0.7 ng/ml (0.5-3.6)
[2017-03-24 06:21] LABS: BASO % 0.5 % (0.0-1.0); EOS # 0.2 10*3/uL (0.0-0.4); EOS % 2.9 % (1.0-4.0); HEMATOCRIT 36.3 % (37.0-47.0); HEMOGLOBIN 11.9 g/dl (12.0-16.0); LYMPH # 1.7 10*3/uL (1.3-4.4); LYMPH % 30.1 % (27.0-41.0); MEAN CORPUSCULAR HGB 29.8 pg (27.0-31.0); MEAN CORPUSCULAR HGB CONC 32.8 g/dl (33.0-37.0); MONO # 0.5 10*3/uL (0.1-1.0); MONO % 9.2 % (3.0-9.0); NEUT # 3.3 10*3/uL (2.3-7.9); PLATELET COUNT AUTOMATED 91 10*3/uL (130-400); RED BLOOD COUNT 3.99 10*6/uL (4.10-5.10); WHITE BLOOD COUNT 5.8 10*3/uL (4.8-10.8)
[2017-03-24 06:34] LABS: PROTHROMBIN TIME 10.6 SECONDS (9.0-12.4)
[2017-03-24 06:37] LABS: CKMB 0.6 ng/ml (0.5-3.6)
[2017-03-24 06:39] LABS: ALBUMIN 2.7 gm/dl (3.1-4.5); ALKALINE PHOSPHATASE 91 U/L (45-117); BILIRUBIN, TOTAL 0.3 mg/dl (0.2-1.0); BUN 29 mg/dl (7-24); CARBON DIOXIDE 24 mmol/L (21-32); CHLORIDE 107 mmol/L (98-107); EST GLOM FILT AFRICAN AMERICAN > 60 ml/min; FREE T4 1.09 ng/dl (0.76-1.46); GLUCOSE 256 mg/dL (65-99); MAGNESIUM 1.6 mg/dL (1.5-2.1); PHOSPHOROUS 3.1 mg/dL (2.5-4.9); SGOT/AST 18 IU/L (3-35); SGPT/ALT 23 U/L (12-78); SODIUM 140 mmol/L (136-145)
[2017-03-24 07:41] LABS: VITAMIN D, 25-HYDROXY 22.1 ng/mL (30-100)
[2017-03-24 07:42] LABS: FOLIC ACID 6.08 ng/mL (>5.38)
[2017-03-24 08:00] VITALS: BP 119/68
[2017-03-24 12:00] VITALS: BP 122/62
[2017-03-24 16:00] VITALS: BP 133/68
[2017-03-24 20:00] VITALS: BP 127/62
[2017-03-25] VITALS: BP 142/73
[2017-03-25 08:00] VITALS: BP 114/64
[2017-03-25] MEDS ORDERED: ACETAMINOPHEN-H1 TA2 PO (10:06)
== END 2017-03-25 11:10 | disposition home or self-care (01) | DRG 604 ==
LOC: ED 10:47 → EDHOLD 14:57 → 5E 15:02
PROVIDERS: Internal Medicine
DX: S80.01XA Contusion of right knee, initial encounter (principal); N17.0 Acute kidney failure with tubular necrosis; E43 Unspecified severe protein-calorie malnutrition; R26.89 Other abnormalities of gait and mobility; K20.9 Esophagitis, unspecified; I10 Essential (primary) hypertension; E03.9 Hypothyroidism, unspecified; R26.2 Difficulty in walking, not elsewhere classified; G43.909 Migraine, unspecified, not intractable, without status migrainosus; G47.00 Insomnia, unspecified; W01.0XXA Fall on same level from slipping, tripping and stumbling without subsequent striking against object, initial encounter; E66.9 Obesity, unspecified; D69.6 Thrombocytopenia, unspecified; E78.1 Pure hyperglyceridemia; E55.9 Vitamin D deficiency, unspecified; Z90.49 Acquired absence of other specified parts of digestive tract; Z90.710 Acquired absence of both cervix and uterus; Z87.891 Personal history of nicotine dependence; Z82.49 Family history of ischemic heart disease and other diseases of the circulatory system; Z88.6 Allergy status to analgesic agent; Z88.1 Allergy status to other antibiotic agents; Z88.8 Allergy status to other drugs, medicaments and biological substances; Z79.82 Long term (current) use of aspirin; Z79.4 Long term (current) use of insulin; Z79.899 Other long term (current) drug therapy; Y93.89 Activity, other specified; Y92.098 Other place in other non-institutional residence as the place of occurrence of the external cause; Y99.8 Other external cause status; Z68.35 Body mass index [BMI] 35.0-35.9, adult

== ENCOUNTER 2017-03-29 22:29 | Emergency (ER) | payer BC ==
[~2017-03-29] VITALS: Ht 121.9 cm; Wt 97.1 kg
[~2017-03-29 22:29] MED LIST changes: +ACETAMINOPHEN-H1 TA2 PO; +FUROSEMIDE40 MG PO; +PIROXICAM PO
== END 2017-03-30 00:45 | disposition home or self-care (01) ==
LOC: ED 22:29
DX: S80.11XA Contusion of right lower leg, initial encounter (principal); Z87.891 Personal history of nicotine dependence; Z90.49 Acquired absence of other specified parts of digestive tract; Z79.4 Long term (current) use of insulin; Z79.82 Long term (current) use of aspirin; Z79.899 Other long term (current) drug therapy; Z88.1 Allergy status to other antibiotic agents; Z88.6 Allergy status to analgesic agent; Z88.8 Allergy status to other drugs, medicaments and biological substances; X50.9XXA Other and unspecified overexertion or strenuous movements or postures, initial encounter; Y93.89 Activity, other specified; Y92.9 Unspecified place or not applicable; Y99.9 Unspecified external cause status

== ENCOUNTER 2017-05-14 19:04 | Emergency (ER) | payer BC ==
[~2017-05-14] VITALS: Ht 162.5 cm; Wt 97.1 kg
[2017-05-14] MEDS ORDERED: NORCO 5-325 TA1 EACH PO (21:33)
[2017-05-14] MEDS ORDERED: PREDNISONE20 M1 PO (21:33)
== END 2017-05-14 21:42 | disposition home or self-care (01) ==
LOC: ED 19:04
DX: M50.323 Other cervical disc degeneration at C6-C7 level (principal); M67.911 Unspecified disorder of synovium and tendon, right shoulder; E03.9 Hypothyroidism, unspecified; I10 Essential (primary) hypertension; G43.909 Migraine, unspecified, not intractable, without status migrainosus; E11.21 Type 2 diabetes mellitus with diabetic nephropathy; F17.200 Nicotine dependence, unspecified, uncomplicated; Z88.6 Allergy status to analgesic agent; Z88.1 Allergy status to other antibiotic agents; Z88.8 Allergy status to other drugs, medicaments and biological substances; Z79.82 Long term (current) use of aspirin; Z79.899 Other long term (current) drug therapy; Z79.4 Long term (current) use of insulin

== ENCOUNTER 2017-06-01 10:46 | Inpatient (IN) | payer BC ==
[~2017-06-01] VITALS: Ht 162.5 cm; Wt 97.0 kg
--- NOTE | ~2017-06-01 | CON ---
[place], [place] REPORT OF CONSULTATION NAME: [id number] UNIT #: [id number] ROOM: 515 DOCTOR: KITTY PUGH MD BIRTHDATE: [birth year] DOS: 06/01/2017 HISTORY OF PRESENT ILLNESS: This 56-year-old patient who presented with chief complaint of epigastric distress, complained that I have difficulty periodically with swallowing pills and nonspecific abdominal pain. A CT scan of the abdomen with contrast was organized, question of mild distal esophageal thickening similar when compared to prior studies. The patient has had endoscopy done in February with no acute findings. The patient had a panel of blood work done. Urinalysis was unremarkable. CBC: White blood cell 6, H and H of 13 and 41. Lactic acid of 2.3. INR was 0.9. PT, PTT within normal limits. Comprehensive metabolic panel: Glucose elevation of 300. Electrolyte balance, liver function test normal, alkaline phosphatase 123, lipase of 467, which could be reactive. C-reactive protein 2.3. CT scan of the abdomen and chest, no cardiopulmonary acute pathology. No GI acute findings. Her gallbladder is absent. Liver is moderate fatty liver as expected. She is morbidly obese. CBC with differential repeatedly did not show any acute activity. Urine cultures remained normal. Her hemoglobin A1c is 10.7, elevated. PAST MEDICAL HISTORY: Associated complain of dysphagia, chronic history of pancreatitis, obesity, nonspecific abdominal pain. Hypothyroidism, hypertriglyceridemia, degenerative joint disease, seizure history, thrombocytopenia history. PAST SURGICAL HISTORY: Cholecystectomy, hysterectomy, , appendectomy, partial thyroidectomy, tonsillectomy. FAMILY HISTORY: Noncontributory. ALLERGIES: Multiple medications, ATIVAN, LEVAQUIN, AVELOX, ZOFRAN, COMPAZINE, VANCOMYCIN. MEDICATIONS: Medications list at home has been reviewed including pantoprazole 40 mg daily. REVIEW OF SYSTEMS: HEENT: Denies double vision, blurred vision. RESPIRATORY: Denies shortness of breath. CARDIOVASCULAR: Denies acute chest pain. DIGESTIVE SYSTEM: Nonspecific abdominal pain, history of dysphagia, which has been established nearly. NEURO-MUSCULOSKELETAL: Obesity. No weight loss: GENERAL: Not acutely distressed patient. HEENT: Head normocephalic, nontraumatic. Mouth and buccal mucosa benign. NECK: Supple, no thyromegaly, no cervical lymphadenopathy. CHEST: Symmetric anatomy, equal expansion. No wheeze, no rhonchi. HEART: Normal sinus rhythm, no gallop, no murmur. ABDOMEN: Soft. No hepato-organomegaly. Obese. Bowel sounds present in all quadrants. EXTREMITIES: No cyanosis, no pedal edema. NEUROLOGIC: Alert, oriented to time, place, person. Sensory, motor intact. [place], [place] REPORT OF CONSULTATION NAME: CHRIS ECHEVERRIA [facility] [id number] UNIT #: [id number] ROOM: [facility] DOCTOR: KITTY PUGH MD BIRTHDATE: [birth year] Cranial nerves 2-12 intact. IMPRESSION: Pancreatitis secondary to hypertriglyceridemia, uncontrolled diabetes mellitus in noncompliant patient, nonspecific abdominal pain secondary to pancreatitis, dysphagia that has been already addressed as outpatient with endoscopic assessment. PLAN AND DISCUSSION: This patient would benefit from presence of Lopid 600 mg at least daily, preferably Lopid 600 mg b.i.d. The patient's colonoscopy by Dr. Dawson has been noticed. Minimal hemorrhoids, no acute finding otherwise, has been reported. This patient can be followed in an outpatient setting, otherwise. Thank you very much indeed. OTHER ADJUNCTIVE DIAGNOSES: As outlined in the paragraph of past medical and surgical history. KITTY PUGH MD CM:CONSTR:REPORT OF CONSULTATION 1627 06/03/17 0541 interface
[~2017-06-01 10:46] MED LIST changes: +NORCO 5-325 TA1 EACH PO
[2017-06-01 10:59] VITALS: BP 116/63
--- NOTE | 2017-06-01 11:06 | NUR ---
PER PATIENT SHE HAS HAD A DECREASE IN APPETITIE. ESTEBAN ROSSI
--- NOTE | 2017-06-01 11:25 | NUR ---
PATIENT URINE SPECIMEN OBTAINED.
--- NOTE | 2017-06-01 11:40 | NUR ---
LBM YESTERDAY AND NORMAL PER PATIENT.
[2017-06-01 11:46] LABS: BILIRUBIN NEGATIVE (NEGATIVE); BLOOD NEGATIVE (NEGATIVE); CLARITY CLEAR (CLEAR); COLOR YELLOW (YELLOW); GLUCOSE 3+ (NEGATIVE); KETONE TRACE (NEGATIVE); LEUKO ESTERASE TRACE (NEGATIVE); NITRITE NEGATIVE (NEGATIVE); PH 5.5 (5.0-9.0); UROBILINOGEN 0.2 E.U./dl (0.2-1.0)
[2017-06-01 12:02] LABS: BACTERIA TRACE; EPITHELIAL CELLS 0-2
[2017-06-01 12:21] LABS: BASO % 0.5 % (0.0-1.0); EOS # 0.1 10*3/uL (0.0-0.4); EOS % 1.6 % (1.0-4.0); HEMATOCRIT 41.9 % (37.0-47.0); HEMOGLOBIN 13.7 g/dl (12.0-16.0); LYMPH # 1.6 10*3/uL (1.3-4.4); LYMPH % 25.9 % (27.0-41.0); MEAN CELL VOLUME 89.5 fl (81.0-99.0); MEAN CORPUSCULAR HGB 29.3 pg (27.0-31.0); MEAN CORPUSCULAR HGB CONC 32.7 g/dl (33.0-37.0); MEAN PLATELET VOLUME 12.2 fl (9.6-12.3); MONO # 0.5 10*3/uL (0.1-1.0); MONO % 7.6 % (3.0-9.0); NEUT # 4.1 10*3/uL (2.3-7.9); NEUT % 64.1 % (47.0-73.0); PLATELET COUNT AUTOMATED 97 10*3/uL (130-400); RED BLOOD COUNT 4.68 10*6/uL (4.10-5.10); RED CELL DISTRI WIDTH 13.1 % (0-14.5); WHITE BLOOD COUNT 6.3 10*3/uL (4.8-10.8)
[2017-06-01 12:32] LABS: ACT PARTIAL THROMBO TIME 22.7 SECONDS (20.8-31.5); INTERNATIONAL NORM RATIO 0.9 (2.0-3.5)
[2017-06-01 12:38] LABS: ALBUMIN 3.2 gm/dl (3.1-4.5); ALKALINE PHOSPHATASE 123 U/L (45-117); BUN 26 mg/dl (7-24); CHLORIDE 108 mmol/L (98-107); CPK 39 U/L (26-192); CREATININE 0.99 mg/dL (0.55-1.02); LIPASE 467 U/L (73-393); MAGNESIUM 1.9 mg/dL (1.5-2.1); POTASSIUM 3.9 mmol/L (3.5-5.1); SGOT/AST 13 IU/L (3-35); SGPT/ALT 30 U/L (12-78); SODIUM 140 mmol/L (136-145); TOTAL PROTEIN 7.3 gm/dL (6.4-8.2)
[2017-06-01 12:46] LABS: CKMB < 0.5 ng/ml (0.5-3.6); TROPONIN I < 0.015 ng/ml (<0.045)
[2017-06-01 12:56] VITALS: BP 99/61
--- NOTE | 2017-06-01 12:56 | NUR ---
PATIENT IS RESTING IN POSITION OF COMFORT IN BED AT THIS TIME, SKIN IS PINK, WARM, AND DRY, RESPIRATIONS ARE EASY AND NONLABORED, CALL LIGHT IN REACH OF THE PATIENT, CONTINUING TO MONITOR THE PATIENT. ESTEBAN ROSSI
--- NOTE | 2017-06-01 13:25 | NUR ---
PATIENT RETURNED FROM CAT SCAN WITH PAIN IN THE IV SITE, AREA IS SLIGHTLY SWOLLEN, IV SITE REMOVED AND A NEW ON INTIATED. ESTEBAN ROSSI
[2017-06-01 13:32] VITALS: BP 127/77
[2017-06-01 14:40] VITALS: BP 143/85
--- NOTE | 2017-06-01 14:40 | NUR ---
PATIENT ASSISTED BACK INTO BED AFTER COMING BACK FROM THE BATHROOM, PATIENT ASSISTED INTO POSITION OF COMFORT PATIENT STATES THAT SHE HAS HAD COMPLETE RESOLUTION OF HER NAUSEA, SKIN IS PINK, WARM, AND DRY, RESPIRATIONS ARE EASY AND NONLABORED, PATIENT IS RESTING IN BED, CALL LIGHT IN REACH OF THE PATIENT, CONTINUING TO MONITOR THE PATIENT. ESTEBAN ROSSI
[2017-06-01] MEDS ORDERED: NORCO 5-325 TA1 EACH PO (15:13)
--- NOTE | 2017-06-01 15:20 | NUR ---
PATIENT TAKEN TO ROOM 515-2 BY MELI URBANO. ENIDRN
--- NOTE | 2017-06-01 15:41 | NUR ---
A 56, admitted to 5E, under the services of LELE Rea DO with a diagnosis of NAUSEA, VOMITTING, ABDOMINAL PAIN. Chief complaint is ABDOMINAL PAIN. Patient arrived via bed from ER. Monitor applied. Initial assessment completed. Vital signs taken and recorded. LELE REA DO notified of admission to the unit. Orders received. See assessment for past medical history, medications and allergies. Patient and/or family oriented to unit. [facility] visitation policy reviewed. Clothing/patient valuable form completed. MAJO HERRERA
[2017-06-01 16:00] VITALS: BP 127/61
--- NOTE | 2017-06-01 16:05 | NUR ---
DR. MAY NOTIFIED THAT PATIENT IS HER ROOM FROM ER.
--- NOTE | 2017-06-01 16:47 | NUR ---
DR. PUGH NOTIFIED OF CONSULT.
[2017-06-01 20:00] VITALS: BP 124/60
--- NOTE | 2017-06-01 22:25 | NUR ---
Medicated with Phenergan IV prn for nausea. Will monitor effectiveness. Call light within reach.
--- NOTE | 2017-06-01 23:30 | NUR ---
Patient resting quietly in bed with eyes closed. Phenergan effective. Will continue to monitor. Call light within reach.
[2017-06-02] VITALS: BP 122/66
--- NOTE | 2017-06-02 00:36 | NUR ---
24 HR chart check completed.
[2017-06-02 07:17] LABS: BASO % 0.4 % (0.0-1.0); EOS # 0.2 10*3/uL (0.0-0.4); HEMATOCRIT 40.7 % (37.0-47.0); HEMOGLOBIN 13.4 g/dl (12.0-16.0); LYMPH # 1.6 10*3/uL (1.3-4.4); LYMPH % 31.3 % (27.0-41.0); MEAN CELL VOLUME 90.4 fl (81.0-99.0); MEAN CORPUSCULAR HGB 29.8 pg (27.0-31.0); MEAN CORPUSCULAR HGB CONC 32.9 g/dl (33.0-37.0); MEAN PLATELET VOLUME 12.4 fl (9.6-12.3); MONO # 0.4 10*3/uL (0.1-1.0); MONO % 8.1 % (3.0-9.0); NEUT # 2.8 10*3/uL (2.3-7.9); PLATELET COUNT AUTOMATED 90 10*3/uL (130-400); RED CELL DISTRI WIDTH 13.2 % (0-14.5)
[2017-06-02 07:31] LABS: ALBUMIN 2.8 gm/dl (3.1-4.5); BUN 20 mg/dl (7-24); CHLORIDE 109 mmol/L (98-107); CHOLESTEROL 226 mg/dL (<200); LIPASE 343 U/L (73-393); MAGNESIUM 1.7 mg/dL (1.5-2.1); POTASSIUM 3.7 mmol/L (3.5-5.1); SGOT/AST 31 IU/L (3-35); SGPT/ALT 32 U/L (12-78); SODIUM 143 mmol/L (136-145); TRIGLYCERIDES 516 mg/dl (<150)
[2017-06-02 07:40] LABS: ALKALINE PHOSPHATASE 89 U/L (45-117); CREATININE 0.88 mg/dL (0.55-1.02); FREE T4 1.27 ng/dl (0.76-1.46); HDL CHOLESTEROL 31 mg/dl (40-60); TOTAL PROTEIN 6.5 gm/dL (6.4-8.2)
[2017-06-02 07:52] LABS: ACT PARTIAL THROMBO TIME 22.7 SECONDS (20.8-31.5)
[2017-06-02 07:59] LABS: VITAMIN D, 25-HYDROXY 22.4 ng/mL (30-100)
[2017-06-02 08:00] VITALS: BP 129/74
--- NOTE | 2017-06-02 11:00 | NUR ---
MEDICATED WITH PHENERGAN FOR NAUSEA.
[2017-06-02 12:00] VITALS: BP 139/73
--- NOTE | 2017-06-02 13:00 | NUR ---
NO FURTHER COMPLAINTS OF NAUSEA.
[2017-06-02 16:00] VITALS: BP 121/56
--- NOTE | 2017-06-02 16:00 | NUR ---
MEDICATED WITH NORCO FOR ABD PAIN. DR. PUGH IN TO SEE PATIENT.
[2017-06-02 20:00] VITALS: BP 117/59
--- NOTE | 2017-06-02 21:48 | NUR ---
Medicated with Phenergan IV prn for nausea. Will monitor effectiveness. Call light within reach.
--- NOTE | 2017-06-02 22:50 | NUR ---
Patient resting quietly in bed with eyes closed. Phenergan effective. Will continue to monitor. Call light within reach.
[2017-06-03] VITALS: BP 126/61
--- NOTE | 2017-06-03 00:28 | NUR ---
24 HR chart check completed.
[2017-06-03 08:00] VITALS: BP 134/69
--- NOTE | 2017-06-03 10:06 | NUR ---
MEDICATED WITH NORCO FOR ABD PAIN SHE RATES A 10 ON THE PAIN SCALE.
--- NOTE | 2017-06-03 10:20 | NUR ---
MEDICATED WITH PHENERGAN FOR NAUSEA.
--- NOTE | 2017-06-03 11:30 | NUR ---
PATIENT SLEEPING. NO AWAKENED FOR BLOOD SUGAR.
--- NOTE | 2017-06-03 11:44 | NUR ---
PT REQUESTED MORPHINE FOR C/O GEN PAIN. WENT TO GIVE PT MOPRPHINE AND PT SNORING, ASLEEP, MORPHINE WASTED
[2017-06-03 12:00] VITALS: BP 126/89
--- NOTE | 2017-06-03 12:30 | NUR ---
CONTINUES TO SLEEP.
--- NOTE | 2017-06-03 14:00 | NUR ---
PATIENT RESTING WITH NO DISTRESS.
[2017-06-03 16:00] VITALS: BP 126/66
--- NOTE | 2017-06-03 16:12 | NUR ---
MEDICATED WITH MORPHINE FOR ABD PAIN SHE RATES AN 8 ON THE PAIN SCALE.
--- NOTE | 2017-06-03 17:00 | NUR ---
NO FURTHER COMPLAINTS OF PAIN.
--- NOTE | 2017-06-03 19:38 | NUR ---
Sleeping, snoring respirations. No acute distress noted.
[2017-06-03 20:00] VITALS: BP 141/87
--- NOTE | 2017-06-03 20:39 | NUR ---
MORPHINE GIVEN FOR ABD PAIN RATED "9" PER PT. ON PAIN SCALE. SEE MAR.
--- NOTE | 2017-06-03 21:30 | NUR ---
MORPHINE EFFECTIVE FOR PAIN PER PT.
--- NOTE | 2017-06-03 22:16 | NUR ---
PT. SLEEPING. RESP. EASY AND REG.
[2017-06-04] VITALS: BP 100/64
--- NOTE | 2017-06-04 01:55 | NUR ---
PT. AWAKEND C/O ABD PAIN "HURTS REALLY BAD." RATED. "9" MORPHINE GIVEN PER ORDER FOR PAIN. SEE MAR.
--- NOTE | 2017-06-04 02:55 | NUR ---
MORPHINE EFFECTIVE FOR ABD PAIN PER PT. WHO IS RESTING NOW.
[2017-06-04 08:00] VITALS: BP 134/80
--- NOTE | 2017-06-04 08:21 | NUR ---
MEDICATED IV MORPHINE FOR C/O LEFT SIDED ABDOMINAL PAIN. RATES PAIN 7/10. DENIES NAUSEA AT THIS TIME. IV FLUIDS INFUSING. SEE SHIFT ASSESSMENT.
--- NOTE | 2017-06-04 08:30 | NUR ---
Microeconomics Professor in to talk to patient. Patient states lives at [address] with HER . There are 13 steps in the home. Physician: DR VILLANUEVA Pharmacy: [facility] Home health services: NONE Patient's level of ADLs: INDEPENDENT Patient has working utilities: YES DME: NONE Follow-up physician's appointment after d/c: WILL BE MADE PRIOR RO DC Does patient want to access PORTAL?: Discharge plan HOME. SERGO BUENO
--- NOTE | 2017-06-04 09:30 | NUR ---
NO FURTHER C/O OFFERED.
--- NOTE | 2017-06-04 10:40 | NUR ---
DR VYAS ON FLOOR AND NOTIFIED OF CONSULT AND VISITED PT.
[2017-06-04 12:00] VITALS: BP 124/67
--- NOTE | 2017-06-04 12:07 | NUR ---
MEDICATED IV MORPHINE FOR C/O LEFT SIDED ABDOMINAL PAIN. RATES PAIN 8/10
--- NOTE | 2017-06-04 13:00 | NUR ---
NO FURTHER C/O PAIN.
[2017-06-04 16:00] VITALS: BP 132/66
--- NOTE | 2017-06-04 16:00 | NUR ---
PT STATES SHE FORGOT TO SAY SHE COULD NOT TAKE REGLAN. STATES IT MAKES HER NAUSEATED AND ANTSY. DR BARCENAS NOTIFIED. MESSAGE ADDED TO ALLERGY LIST.
--- NOTE | 2017-06-04 16:48 | NUR ---
MEDICATED IV MORPHINE FOR C/O PAIN. RATES PAIN 8/10
--- NOTE | 2017-06-04 17:38 | NUR ---
MEDICATED IV PHENERGAN FOR C/O NAUSEA.
[2017-06-04 20:00] VITALS: BP 122/62
[2017-06-05] VITALS: BP 112/56
--- NOTE | 2017-06-05 04:00 | NUR ---
SLEEPING. RESP. EASY AND REG. NO ACUTE DISTRESS NOTED.
--- NOTE | 2017-06-05 06:30 | NUR ---
MORPHINE GIVEN PER ORDER FOR ABD PAIN "8" SEE MAR
--- NOTE | 2017-06-05 07:30 | NUR ---
MORPHINE EFFECTIVE FOR ABD PAIN PER PT.
[2017-06-05 08:00] VITALS: BP 142/65
--- NOTE | 2017-06-05 09:08 | NUR ---
PT GIVEN IV PHENERGAN SLOWLY VIA SYRINGE PER PRN ORDER FOR C/O NAUSEA. WILL MONITOR EFFECTIVENESS.
--- NOTE | 2017-06-05 10:00 | NUR ---
NAUSEA BEING RELIEVED PER PT.
--- NOTE | 2017-06-05 11:40 | NUR ---
MORPHINE GIVEN SLOWLY PER PRN ORDER FOR C/O ABD PAIN. RATES PAIN 8 OUT OF 10. WILL MONITOR EFFECTIVENESS. CALL LIGHT WITHIN REACH.
[2017-06-05 12:00] VITALS: BP 118/84
[2017-06-05] MEDS ORDERED: TRESIBA FL200 UNIT/1 SQ (12:11)
[2017-06-05] MEDS ORDERED: GEMFIBROZIL600 MG PO (12:11)
--- NOTE | 2017-06-05 12:30 | NUR ---
MORPHINE RELIEVING PAIN PER PT. WILL CONTINUE TO MONITOR.
--- NOTE | 2017-06-05 13:31 | NUR ---
Discharge instructions reviewed with patient/family. Patient receptive and verbalizes understanding. Follow-up care arranged. Written instructions given to patient/family. ELVIN NEWMAN.
== END 2017-06-05 13:30 | disposition home or self-care (01) | DRG 439 ==
LOC: ED 10:46 → 5E 14:36 → EDHOLD 14:36 → 5E 14:45
PROVIDERS: Emergency Medicine; Registered Nurse; ADMIT Internal Medicine
DX: K85.90 Acute pancreatitis without necrosis or infection, unspecified (principal); E44.0 Moderate protein-calorie malnutrition; E87.2 Acidosis; K76.0 Fatty (change of) liver, not elsewhere classified; E83.51 Hypocalcemia; E11.9 Type 2 diabetes mellitus without complications; K86.1 Other chronic pancreatitis; E66.9 Obesity, unspecified; I10 Essential (primary) hypertension; K44.9 Diaphragmatic hernia without obstruction or gangrene; E55.9 Vitamin D deficiency, unspecified; E89.0 Postprocedural hypothyroidism; E78.00 Pure hypercholesterolemia, unspecified; E78.1 Pure hyperglyceridemia; G43.909 Migraine, unspecified, not intractable, without status migrainosus; Z79.4 Long term (current) use of insulin; Z68.36 Body mass index [BMI] 36.0-36.9, adult; Z90.49 Acquired absence of other specified parts of digestive tract; Z88.5 Allergy status to narcotic agent; Z88.8 Allergy status to other drugs, medicaments and biological substances; Z88.1 Allergy status to other antibiotic agents; Z98.891 History of uterine scar from previous surgery; Z90.710 Acquired absence of both cervix and uterus; Z87.891 Personal history of nicotine dependence; Z82.49 Family history of ischemic heart disease and other diseases of the circulatory system; Z83.3 Family history of diabetes mellitus; Z79.82 Long term (current) use of aspirin

== ENCOUNTER 2017-06-11 20:35 | Inpatient (IN) | payer BC ==
[~2017-06-11] VITALS: Ht 162.5 cm; Wt 104.1 kg
--- NOTE | ~2017-06-11 | CON ---
[place], [place] REPORT OF CONSULTATION NAME: CHRIS ECHEVERRIA [facility] #: [id number] UNIT #: [id number] ROOM: 521 DOCTOR: JENN VALDEZ MD BIRTHDATE: [birth year] DOS: 06/13/2017 REASON FOR CONSULTATION: For assessment of acute pneumonia and other symptoms. HISTORY OF PRESENT ILLNESS: A 56-year-old white female unknown to me from the past. She has been admitted under the hospitalist services. The patient was seen today with [id number] encounter. Physical examination performed. History was confirmed. All the labs included radiology data was personally reviewed for the assessment. The patient was personally completed today and management recommendation changes were ordered personally as well. The note done by the medical office asst was approved as well. The patient stated that she has been noted with acute illness at home and became acutely ill for the past few days. She started with having fever at home with cough. The cough has been noted with some sputum expectoration mostly dry cough. The patient was described. She stated that she was also losing her balance and noted with generalized weakness as well. She has been admitted to the hospital on 06/12/2017 with current symptom. She denies symptoms of chest pain. REVIEW OF SYSTEMS: Already completed by the medical office asst. PAST MEDICAL HISTORY: Known with history of: 1. Hypothyroidism. 2. Obesity. 3. Essential hypertension. 4. History of common migraines. 5. History of Batres-Michoacano syndrome. 6. History of chronic pancreatitis. 7. Degenerative arthritis. 8. Past history of GI bleeding. 9. History of essential hypertension. 10. History of vitamin D deficiency. PAST SURGICAL HISTORY: Noted with many surgery that include: 1. Appendectomy. 2. . 3. ____. 4. Cholecystectomy. 5. Exploratory laparotomy. 6. Surgery on the foot in the left knee. 7. Cardiac catheterization. 8. Hysterectomy. 9. Parathyroidectomy. 10. Partial thyroidectomy. 11. Tonsillectomy and adenoidectomy. SOCIAL HISTORY: The patient is currently , lives at home. She has one child. Smoking started the patient as a teenager, a pack of cigarettes per day that was discontinued in 2000. Denies any occupation related pulmonary exposure. Denies any history of chronic alcohol or any illicit drugs. [place], [place] REPORT OF CONSULTATION NAME: CHRIS ECHEVERRIA UNIT #: [id number] ROOM: 521 DOCTOR: MCKENNA SOLIS MD,JENN BIRTHDATE: [birth year] FAMILY HISTORY: The patient's father is , the patient related to the cardiac problem at her younger age. The mother , 60 plus years old, complication related to the bowel obstruction. HOME MEDICATIONS: Noted as use of aspirin, Lipitor, Capoten, Lasix, Laurens, Lantus insulin, levothyroxine, Robaxin, Protonix, Lyrica, Januvia, Topamax, trazodone, and vitamin D. DRUG ALLERGIES: 1. FLUOROQUINOLONES. 2. VANCOMYCIN. 3. CODEINE PHOSPHATE. 4. ATIVAN. 5. REGLAN. 6. ZOFRAN. 7. COMPAZINE: GENERAL: This is a 56-year-old female who has been currently noted to be awake and alert at the time of the assessment without any acute distress. VITAL SIGNS: Height of 5 feet 4 inches, weight of 226 pounds, BMI of 38.8. Vital signs of the patient which were recorded showed the temperature noted on admission on 06/12/2017 is 101.5 degrees Fahrenheit, currently the patient remains afebrile. Respiratory rate range between 18-20, heart rate of 84-90, blood pressure 126/76-112/56. Pulse oxygen saturation on room air was noted as 92-95% saturation at rest on room air. HEENT: Examination shows moderate obesity. Decreased posterior pharyngeal space. Head was atraumatic. Eyes nonicterus. NECK: Supple. CARDIOVASCULAR SYSTEM: S1, S2 is audible. LUNGS: Decreased breaths are noted generalized in the lungs bilaterally with basilar crackles noted in the lower lungs bilaterally. There was no wheezing. ABDOMEN: Soft with moderate obesity, nontender. Bowel sounds present. EXTREMITIES: Showed chronic obesity without any edema, clubbing or cyanosis. LABORATORY DATA: The blood culture which are done as an outpatient. The patient was noted as no bacterial growth. The patient was assessed in the Emergency Room at that time. CBC of 918 on admission was noted as platelet count 105,000, otherwise unremarkable CBC. Lactic acid on 18 was noted normal. CMP on of this month, BUN 30, creatinine 1.34, glucose 444. Sodium 134. Albumin 3.0. Remaining LFTs were normal. CBC that were done in 06/12 shows hemoglobin 10.8, hematocrit 32.4, platelet count 89,000. PT and PTT this morning were noted normal. CMP this morning, glucose 350, BUN and creatinine was normal. PSA 0.24. Calcium noted at 6.4. The albumin noted decreased 2.5, corrected the calcium to the low normal range. The chest x-ray of the patient that was done was personally reviewed today shows MediPort noted in place in the right internal jugular vein in the right chest. Evidence of mass-like consolidation, infiltration was noted with some patchy infiltration present in the left lingula. The findings compared to the chest x-ray that was done on was noted limited study just 1 view, mild elevation of the left hemidiaphragm at that time was noted. [place], [place] REPORT OF CONSULTATION NAME: CHRIS ECHEVERRIA UNIT #: [id number] ROOM: 521 DOCTOR: JENN VALDEZ MD BIRTHDATE: [birth year] IMPRESSION: 1. The patient who has been currently admitted to the hospital with noted progressive increased respiratory symptom, suspected with acute bacterial pneumonia and consolidation or mass-like lesion in the left lingula and left upper lobe. 2. The patient with evidence of uncontrolled hyperglycemia secondary to acute infection, history of diabetes mellitus as well. 3. History of past nicotine abuse. There were no formal diagnoses of chronic obstructive pulmonary disease, bronchial asthma has been known previously and the patient not using any regular respiratory medications. 4. Mild pseudohyponatremia was also noted secondary to hyperglycemia on admission. 5. History of moderate obesity. 6. Clinical suspicion possibility of obstructive sleep apnea disorder would be considered. PLAN OF TREATMENT: Because of the atypical appearance current mass-like lesion infiltration or consolidation. CT scan of the chest will be ordered without contrast for further addition assessment. Based on the CT scan findings, the patient addition assessment and other intervention will be ordered after that. Bronchodilators will be continued. Continuation of the oxygen if necessary to maintain a saturation of 92% or greater. Usual care, other supportive plan of therapy and care management. Additional treatment changes will be done based on progression of the illness. Obtain the sputum for Gram stain and culture. Also, obtain the urine for legionella antigen as well. The pneumonia is present would be considered nonaspiration. The patient most likely related to the streptococcal pneumonia or atypical etiology remains in consideration included for Legionella pneumonia. Other supportive plan of therapy care and plan as per usual care. Additional treatment changes will be done as necessary with the progression of the symptoms. Note of the consultation which were done by the medical office asst today was approved as well. Also added management, component. The patient maximize the medical management of uncontrolled diabetes mellitus as well. JENN ANDRES MD CM:CONSTR:REPORT OF CONSULTATION 1412 06/14/17 0614 interface
--- NOTE | ~2017-06-11 | PR ---
[place], [place] PROGRESS NOTE NAME: CHRIS [facility]HE[facility]RI[facility] #: [id number] UNIT #: [id number] ROOM: 521 DOCTOR: MCKENNA SOLIS MD,JENN BIRTHDATE: [birth year] DOS: 06/16/2017 PULMONARY FOLLOWUP NOTE SUBJECTIVE: The patient has been doing well at this time without any acute distress. She underwent EGD yesterday, which was completed by the die casting machine maintainer. The patient did not have any complication with the procedure. The narrowing of the distal esophagus. The patient noted, which was biopsied as well as the balloon dilatation was performed. The patient denies any symptoms of chest pain, coughing, shortness of breath, all resolving. OBJECTIVE: VITAL SIGNS: Normal temperature, respiratory rate 20, heart rate 82, blood pressure 150/80. HEENT: Chronic obesity. CARDIOVASCULAR: S1, S2 audible. LUNGS: Without any wheezing. Occasional crackles. ABDOMEN: Soft, nontender. IMPRESSION: 1. The patient with resolving acute pneumonia clinically and radiologically in the left lung. 2. Dilatation of esophageal stricture, status post biopsy as well. PLAN OF MANAGEMENT: Obtain another chest x-ray in the morning in preparation for possible home discharge after review could be recommended. Additional treatment changes for the patient will need to be made based on the progression of the illness. JENN ANDRES MD CM:PNTRANS [phone] JENN SOLIS MD 06/17/17 0149 interface
--- NOTE | ~2017-06-11 | PR ---
[place], [place] PROGRESS NOTE NAME: CHRIS ECHEVERRIA [facility] #: [id number] UNIT #: [id number] ROOM: 521 DOCTOR: MCKENNA SOLIS MD,JENN BIRTHDATE: [birth year] DOS: 06/14/2017 SUBJECTIVE: The patient was seen today with [id number] encounter. The history was confirmed. Physical examination personally performed. All the labs were reviewed. The changes in the management and the patient's assessment was personally made for this patient's today's visit. The note done by the veterinary medical officer was approved. She has reported no pain of the chest at this time. Coughing has been noted with some sputum expectoration. She had a CT scan of the chest completed yesterday without contrast for further assessment, atypical consolidation mass-like lesion in the left lung. The patient denies any symptoms of wheezing. There was no hemoptysis at this time. OBJECTIVE: VITAL SIGNS: Shows a normal temperature, respiratory rate 20, heart rate 70, blood pressure 134/70, pulse oxygen saturation on room air was 97% saturation recorded. HEENT: Examination shows moderate obesity. NECK: Supple. CARDIOVASCULAR: S1, S2 audible. LUNGS: The patient was noted with crackles in the lungs on the left side. Moderate general reduction of the breath sounds were noted bilaterally. ABDOMEN: Soft and nontender. EXTREMITIES: Shows chronic obesity. LABORATORY DATA: CT scan of the chest, PACS images were personally reviewed shows large area of consolidation noted in pleural base with air bronchogram, left lingula and left upper lobe posterior subsegment. There was no pleural effusion. Mild nonspecific lymph node enlargement was also noted. Thickening of the distal esophagus was described for the patient. Possibility of mass cannot be excluded. BMP this morning shows glucose 325, BUN and creatinine was normal. IMPRESSION: 1. The patient was currently admitted to the hospital with atypical area of consolidation and mass-like lesion in the left lingula and left upper lobe. Currently treated with intravenous antibiotics. 2. Rule out distal esophageal mass as well based on the current CT scan finding suggestive because of the thickening of distal esophageal area. 3. Nonspecific lymph node enlargement in the mediastinum most likely related to current acute inflammatory condition. 4. Rule out malignancy until the resolution of the current abnormality noted in the left lung as well. 5. History of chronic nicotine dependence. 6. Chronic obesity. 7. Obstructive sleep apnea disorder. PLAN OF TREATMENT: The patient will be continued on current plan of therapy for this patient as previously in progress. Obtain a chest x-ray in the morning to reassess. Monitoring all the culture results including urine for Legionella antigen and strep pneumo antigen. GI consultation should be obtained for [place], [place] PROGRESS NOTE NAME: CHRIS ECHEVERRIA UNIT #: [id number] ROOM: 521 DOCTOR: MCKENNA SOLIS MD,JENN BIRTHDATE: [birth year] endoscopy to rule out any mass lesion in the esophagus. Other supportive therapy, plan of management care. Nicotine replacement patches and other treatments. JENN ANDRES MD CM:PNJUSTINA [id number] JENN SOLIS MD 06/14/17 1603 interface
--- NOTE | ~2017-06-11 | PR ---
[place], [place] PROGRESS NOTE NAME: CHRIS ECHEVERRIA UNIT #: [id number] ROOM: 521 DOCTOR: IRMA MCODWELL DO BIRTHDATE: [birth year] DOS: 06/14/2017 SUBJECTIVE: The patient was seen and evaluated today with Dr. Andres. The patient is alert, awake and responsive. No nausea, vomiting, lightheadedness or chest pain. The patient does feel some shortness of breath and cough. The patient states that she is not producing any sputum. OBJECTIVE: VITAL SIGNS: Temperature of 98.2, pulse 92, respiratory rate 20, blood pressure 126/76, pulse ox 96 on room air. HEENT: No changes. NECK: Supple. CARDIOVASCULAR: S1, S2 audible. No lower extremity edema. LUNGS: Shortness of breath, cough, mild wheezing and rhonchi. No rales. The patient is noted to have some cough. ABDOMEN: Soft, positive bowel sounds, nondistended, nontender. LABORATORY DATA: Chest CT done on 06/13/2017 shows significant lower left pneumonia with patchy airspace consolidation and air bronchogram, mildly prominent mediastinal lymph node which are not enlarged on the CT, thickening of the mild to distal esophagus. Underlying mass cannot be excluded, underlying mild chronic changes. IMPRESSION: 1. Acute respiratory syndrome with acute bacterial pneumonia versus consolidation mass-like lesion in left lingula. 2. Uncontrolled hyperglycemia. 3. History of nicotine abuse. 4. Mild pseudohyponatremia. 5. Obesity. PLAN OF TREATMENT: 1. Await bronch cultures. 2. We will order a chest x-ray 2-view tomorrow morning. 3. Continue azithromycin, cefepime, DuoNebs, await the results for sputum cultures and Gram stain. 4. Supportive care. IRMA MCDOWELL DO [place], [place] PROGRESS NOTE NAME: CHRIS ECHEVERRIA UNIT #: [id number] ROOM: 521 DOCTOR: IRMA MCDOWELL DO BIRTHDATE: [birth year] JENN ANDRES MD CM:KANA [phone] IRMA MCDOWELL DO 06/14/17 1300 interface
--- NOTE | ~2017-06-11 | PR ---
[place], [place] PROGRESS NOTE NAME: CHRIS ECHEVERRIA [facility] #: [id number] UNIT #: [id number] ROOM: 521 DOCTOR: MCKENNA SOLIS MD,JENN BIRTHDATE: [birth year] DOS: 06/15/2017 SUBJECTIVE: The patient was seen and examined, with [id number] encounter. History was confirmed. Physical examination performed on the left was independently reviewed. Assessment for this patient was completed for today's visit. Management changes were personally done for today's visit as well. The note done by the electromedical equipment repairer was approved. The patient has a GI consultation; done for this patient and was planned for endoscopy done to rule out any esophageal mass. She does complain of symptoms of dysphagia for this patient previously. Denies any symptoms of hemoptysis or chest pain at this time. Shortness of breath, the patient has been improving. The cough, frequency and intensity, the patient has been improving. There was no sputum expectoration. OBJECTIVE: VITAL SIGNS: Normal temperature, respiratory rate 20, heart rate 76, blood pressure 120/58. Pulse oxygen saturation of the patient was noted on room air 97% saturation. HEENT: Examination shows moderate obesity. NECK: Supple. CARDIOVASCULAR: S1, S2 audible. LUNGS: The patient was still noted with scattered crackles of the lungs, reduction was noted from previous exam. There was no wheezing. ABDOMEN: Soft and obese. LABORATORY DATA: CBC for the patient's hemoglobin 11.9, hematocrit 36.4. WBC count normal. Platelet count normal, 4.1% eosinophils. The BMP of the patient this morning, glucose 313. BUN and creatinine was normal. The chest x-ray, 2-view for this patient that was done this morning was independently reviewed for patient in the PACs system showed reduction of previous noted infiltration in the lingula; patient as well as upper lobe in the PA and lateral view. The chest x-ray comparison to previous chest x-ray done on 06/11/2017. IMPRESSION: 1. The patient who has been currently noted with acute bacterial pneumonia involving the lingula and the left upper lobe, for this patient responding to treatment very well as improving. 2. Rule out distal esophageal mass; this patient thickening or other etiology. The patient with further assessment with the endoscopy. PLAN OF TREATMENT: The patient will be continued on current antibiotics, bronchodilators and oxygen supplementation. Any assessment changes for the patient needs to be made; ____ the patient will be done based on the endoscopy finding or others ____. Other supportive therapy, plan of management. Antibiotics spectrum will be reduced, the patient tomorrow after the final culture results availability. [place], [place] PROGRESS NOTE NAME: CHRIS ECHEVERRIA UNIT #: [id number] ROOM: 521 DOCTOR: MCKENNA SOLIS MD,JENN BIRTHDATE: [birth year] JENN ANDRES MD CM:PNTRANS [phone] JENN SOLIS MD 06/19/17 0711 interface
--- NOTE | ~2017-06-11 | CON ---
[place], [place] REPORT OF CONSULTATION [id number] UNIT #: [id number] ROOM: 521 DOCTOR: IRMA MCDOWELL DO BIRTHDATE: [birth year] DOS: 06/13/2017 REASON FOR CONSULTATION: Left lower lobe pneumonia, recurrent by the hospitalist service. CHIEF COMPLAINT: Shortness of breath. HISTORY OF PRESENT ILLNESS: The patient is a 56-year-old female who presents to the hospital with chief complaint of shortness of breath. The patient states that the shortness of breath has been going on for a while and is also associated with cough, wheezing and congestion. The patient denies any sputum production; however, the patient states that she was running high fever at home of approximately 102 Fahrenheit and having nausea. The patient denies any current fever, chills, nausea, chest pain or any other symptoms. The patient states that she continues to be short of breath. The patient states that she used to smoke 16 years ago and she was a chronic smoker. Currently, she does not smoke. She presented to the ED and chest x-ray was done in the ED, which showed a patchy airspace disease, consolidation in the left lung and then patient was admitted for further antibiotics and treatment. Pulmonary Service was consulted for the left lower lobe recurrent pneumonia. PAST MEDICAL HISTORY: Degenerative disk disease, chronic pancreatitis, hypothyroidism, insulin-dependent diabetes mellitus, lactic acidosis, migraine, obesity, BMI of 38.8, Batres-Michoacano syndrome, vitamin D deficiency. PAST SURGICAL HISTORY: Appendectomy, , cholecystectomy, ear surgery, exploratory laparotomy, foot surgery, arthroscopy of knee, cardiac catheterization, hysterectomy, parathyroidectomy, partial thyroidectomy and tonsillectomy. SOCIAL HISTORY: The patient does not drink alcohol or does illicit drug use. The patient lives with her at home. She quit smoking 16 years ago. FAMILY HISTORY: The patient's father at age of 40-50 due to cardiac disease and myocardial infarction. The patient's mother at age of 60 due to bowel obstruction. ALLERGIES: CODEINE, LEVAQUIN, ATIVAN, REGLAN, MOXIFLOXACIN, ZOFRAN, COMPAZINE AND VANCOMYCIN. HOME MEDICATIONS: Noted to be for aspirin, atorvastatin, captopril, furosemide, [place], NovoLog, , Synthroid, Robaxin, Protonix, Lyrica, Januvia, Topamax, trazodone and vitamin D. REVIEW OF SYSTEMS: HEENT: Denies double vision, blurred vision. RESPIRATORY: Reports shortness of breath, cough, wheezing. Denies dyspnea on exertion, paroxysmal nocturnal dyspnea or sputum production. CARDIOVASCULAR: Denies acute chest pain, palpitation, lower extremity edema. ABDOMINAL: Denies abdominal pain, nausea, vomiting, diarrhea, constipation. [place], [place] REPORT OF CONSULTATION NAME: CHRIS ECHEVERRIA UNIT #: [id number] ROOM: 521 DOCTOR: IRMA MCDOWELL DO BIRTHDATE: [birth year] GENITOURINARY: Denies dysuria, hematuria. NEUROLOGIC: Denies lightheadedness, dizziness. PSYCHIATRIC: Denies depression, anxiety. ENDOCRINE: Denies heat or cold intolerance. SKIN: Denies new rashes or lesions. PHYSICAL EXAMINATION: GENERAL: This is a 56-year-old female, 5 feet 4 inches, BMI of 38.8. VITAL SIGNS: Noted to be 98.2 Fahrenheit, pulse of 92, respiratory rate of 20, blood pressure 126/79, pulse ox of 96% on room air. GENERAL APPEARANCE: Alert, awake, responsive, pleasant, cooperative, mild distress. HEAD: Normocephalic, atraumatic. EYES: PERRLA. No lesion. No ulceration. Nonicteric. No drainage. ENT: No lesion, no scars or masses. Nares patent. No pharyngeal exudate or erythema. NECK: Without lesions, masses or ulcerations. Trachea midline. Thyroid, nonenlarged, nontender and supple. HEART: Regular rate and rhythm. No gallop, no murmur. No edema in the lower extremities. LUNGS: . The patient noted to have cough, mild respiratory distress. Lungs sounds are diminished at the bases. Scattered wheezing and rhonchi heard. ABDOMEN: Soft, nontender, nondistended, positive bowel sounds. No masses or rebound tenderness. EXTREMITIES: No clubbing, cyanosis, erythema or edema. NEUROLOGIC: Grossly intact without focal neurologic deficit. Cranial nerves 2-12 intact. PSYCHOLOGIC: Good historian, good recent memory. Exhibits normal mood and affect. SKIN: Warm and dry. No rashes or ulceration. LABORATORY DATA: White cell count of 5.5, hemoglobin of 10.8, platelet count of 89. Chemistry: Sodium 137, potassium 3.5, chloride 106, carbon dioxide 21, BUN 22, creatinine 0.81, glucose of 350, calcium low of 6.8, phosphorus 2.4, vitamin D 21.5. AST and ALT are normal. INR of 1. MICROBIOLOGY: Blood cultures are pending to date. IMAGING: Chest x-ray done on 06/11/2017 shows patchy airspace disease/consolidation in the left lung. ASSESSMENT AND PLAN: 1. Please see Dr. Andres's note for further assessment. 2. Plan to order CT of chest without contrast. 3. Continue current management. Thank you for your consult. [place], [place] REPORT OF CONSULTATION NAME: CHRIS ECHEVERRIA UNIT #: [id number] ROOM: 521 DOCTOR: IRMA MCDOWELL DO BIRTHDATE: [birth year] IRMA MCDOWELL DO JENN ANDRES MD CM:CONSTR:REPORT OF CONSULTATION 1226 06/13/17 3425 interface
--- NOTE | ~2017-06-11 | PR ---
[place], [place] PROGRESS NOTE [id number] #: [id number] ROOM: 521 DOCTOR: MCKENNA SOLIS MD,JENN BIRTHDATE: [birth year] DOS: 06/17/2017 SUBJECTIVE: She has been doing very well at this time with continued reduction and improvement and resolution of the acute symptoms. There were no symptoms of chest pain. Shortness of breath has been resolved. There were symptoms of abdominal pain. OBJECTIVE: VITAL SIGNS: Normal temperature, respiratory rate 20, heart rate 74, blood pressure of 160/84. Pulse oxygen saturation on room air 98% saturation. HEENT: Chronic obesity. NECK: Supple. CARDIOVASCULAR: S1, S2 audible. LUNGS: Without any wheeze or crackles. ABDOMEN: Soft, obese, nontender. LABORATORY DATA: Chest x-ray done this morning for the patient is still showing pneumonia in the lingula, which has been improving as compared with the previous chest x-ray. Sputum culture of 06/12/2017, normal tracie. IMPRESSION: 1. The patient has been noted with progressive resolution of the acute pneumonia with current medical management. 2. Obesity. 3. Esophageal stricture, status post dilatation of the distal esophagus. PLAN OF MANAGEMENT: The patient will be continued with current plan of therapy at this time without any changes. Continuation of all of the plan of care and treatment. Usual care, other supportive therapies. JENN ANDRES MD CM:PNTRANS [phone] JENN SOLIS MD 06/18/17 0301 interface
--- NOTE | ~2017-06-11 | PR ---
[place], [place] PROGRESS NOTE NAME: CHRIS ECHEVERRIA UNIT #: [id number] ROOM: 521 DOCTOR: LEXY JACKSONKITTY BIRTHDATE: [birth year] DOS: 06/15/2017 SUBJECTIVE: The patient has presented with multiple medical issues, among which has been her dysphagia. I have been asked for assessment of the patient in this regard. The patient had been seen yesterday and consultation has been reflected. The patient has presented initially with COPD and the patient has been on aspirin. PAST MEDICAL HISTORY: Associated obesity, hypertension, GI bleed, hypothyroidism, diabetes mellitus, migraine cephalalgia. PAST SURGICAL HISTORY: Cholecystectomy, appendectomy, exploratory laparotomy, , thyroidectomy, tonsillectomy and all have been recognized. SOCIAL HISTORY: Past smoker. Nonalcohol consumer. FAMILY HISTORY: Myocardial infarctions. MEDICATIONS: List has been reviewed. Labs and records have been reviewed. Her latest CBC showed platelets of 128 this morning; however, her platelets at the time of admission were 105. H and H have stayed stable. Next morning her platelets dropped to 89 and the patient was on aspirin. Therefore, platelets were given 1 unit to reverse anti-platelet activity prior to esophageal dilation and biopsies as necessary. PROCEDURE: Today's procedure part of investigation is panendoscopy plus biopsy and esophageal dilation. PREMEDICATION: Versed and Diprivan. SCOPE: Olympus forward-viewing gastroscope Q10 video. REPORT: After putting the patient in the left lateral position and after application of lubricant to the scope, the scope was introduced. Thereafter, under direct visualization, I advanced through the length of the esophagus without difficulty. Gastric pouch was entered. Evidence of gastritis was noticed. Antral biopsy obtained. Duodenal bulb, second and third part within normal limits. Balloon dilation of the esophagus to size 20 was undertaken, most resistance was mid esophageal. The patient extubated, tolerated the procedure well. IMPRESSION: 1. Benign esophageal stricture, status post balloon dilation to size 20. 2. Gastritis, status post biopsy. PLAN AND DISCUSSION: We are going to resume feeding and reassess clinically. As far as gastritis is concerned, 20 mg of omeprazole every day would suffice chronic management. [place], [place] PROGRESS NOTE NAME: CHRIS ECHEVERRIA UNIT #: [id number] ROOM: 521 DOCTOR: KITTY PUGH MD BIRTHDATE: [birth year] KITTY PUGH MD CM:KANA [phone] KITTY PUGH MD 06/18/17 0750 interface
--- NOTE | ~2017-06-11 | PR ---
[place], [place] PROGRESS NOTE NAME: CHRIS ECHEVERRIA UNIT #: [id number] ROOM: 521 DOCTOR: IRMA MCDOWELL DO BIRTHDATE: [birth year] DOS: 06/15/2017 SUBJECTIVE: The patient was seen and examined this morning with Dr. Andres. The patient is alert, awake and responsive. No nausea, vomiting, lightheadedness or dizziness. The patient is still mildly short of breath and cough. The patient states she is scheduled for EGD today and slightly anxious today. OBJECTIVE: VITAL SIGNS: Temperature 97.8, pulse 76, respiratory rate 20, blood pressure 128/58, pulse ox 97 on room air. ASSESSMENT: 1. Atypical area of consolidation and mass-like lesion in the left lingula and left upper lobe. 2. Rule out distal esophageal mass seen on the CT scan, noted to have thickening of the distal esophageal area. 3. Nonspecific lymph node enlargement in the mediastinum, probably related to acute inflammation. 4. Rule out malignancy. 5. Chronic nicotine dependence. 6. Obstructive sleep apnea. 7. Obesity. PLAN OF TREATMENT: 1. The patient to continue azithromycin and cefepime. 2. Continue Mucinex. 3. Continue DuoNeb q. 4 hours. 4. The patient is planned to have EGD today, await the EGD report from GI. 5. Supportive plan of care. IRMA MCDOWELL DO [place], [place] PROGRESS NOTE NAME: CHRIS ECHEVERRIA UNIT #: [id number] ROOM: 521 DOCTOR: IRMA MCDOWELL DO BIRTHDATE: [birth year] JENN ANDRES MD CM:PNTRANS [id number] IRMA MCDOWELL DO 06/15/17 1330 interface
[2017-06-11 21:11] VITALS: BP 146/77
[2017-06-11 22:10] LABS: BASO % 0.4 % (0.0-1.0); EOS # 0.1 10*3/uL (0.0-0.4); HEMATOCRIT 39.6 % (37.0-47.0); HEMOGLOBIN 13.4 g/dl (12.0-16.0); LYMPH # 1.3 10*3/uL (1.3-4.4); LYMPH % 18.7 % (27.0-41.0); MEAN CELL VOLUME 87.4 fl (81.0-99.0); MEAN CORPUSCULAR HGB 29.6 pg (27.0-31.0); MEAN CORPUSCULAR HGB CONC 33.8 g/dl (33.0-37.0); MEAN PLATELET VOLUME 12.1 fl (9.6-12.3); MONO # 0.9 10*3/uL (0.1-1.0); MONO % 13.6 % (3.0-9.0); NEUT # 4.5 10*3/uL (2.3-7.9); PLATELET COUNT AUTOMATED 105 10*3/uL (130-400); RED BLOOD COUNT 4.53 10*6/uL (4.10-5.10); RED CELL DISTRI WIDTH 13.1 % (0-14.5); WHITE BLOOD COUNT 6.8 10*3/uL (4.8-10.8)
[2017-06-11 22:26] LABS: ALKALINE PHOSPHATASE 117 U/L (45-117); BUN 30 mg/dl (7-24); CHLORIDE 99 mmol/L (98-107); CREATININE 1.34 mg/dL (0.55-1.02); LIPASE 374 U/L (73-393); POTASSIUM 3.9 mmol/L (3.5-5.1); SGOT/AST 17 IU/L (3-35); SGPT/ALT 21 U/L (12-78); SODIUM 134 mmol/L (136-145); TOTAL PROTEIN 7.5 gm/dL (6.4-8.2)
[2017-06-11 22:30] LABS: TROPONIN I < 0.015 ng/ml (<0.045)
[2017-06-12 01:30] VITALS: BP 149/66
--- NOTE | 2017-06-12 01:30 | NUR ---
A 56, admitted to 5E, under the services of LUIS Koehler DO with a diagnosis of PNEUMONIA. Chief complaint is WEAKNESS. Patient arrived via bed from ER. Monitor applied. Initial assessment completed. Vital signs taken and recorded. LUIS KOEHLER DO notified of admission to the unit. Orders received. See assessment for past medical history, medications and allergies. Patient and/or family oriented to unit. visitation policy reviewed. Clothing/patient valuable form completed. MEHUL DAY
--- NOTE | 2017-06-12 02:29 | NUR ---
HOME MEDICATIONS VERIFIED WITH PATIENT. DR. CANNON NOTIFIED.
--- NOTE | 2017-06-12 05:00 | NUR ---
PATIENT RESTING IN BED WITH EYES CLOSED. NO SIGNS OR SYMPTOMS OF DISTRESS NOTED. CALL LIGHT IN REACH.
[2017-06-12 07:05] LABS: BASO % 0.4 % (0.0-1.0); EOS # 0.1 10*3/uL (0.0-0.4); EOS % 1.1 % (1.0-4.0); LYMPH # 1.3 10*3/uL (1.3-4.4); LYMPH % 23.1 % (27.0-41.0); MEAN CORPUSCULAR HGB 29.7 pg (27.0-31.0); MEAN CORPUSCULAR HGB CONC 33.3 g/dl (33.0-37.0); MONO # 0.9 10*3/uL (0.1-1.0); MONO % 17.2 % (3.0-9.0); NEUT # 3.2 10*3/uL (2.3-7.9); PLATELET COUNT AUTOMATED 89 10*3/uL (130-400); RED BLOOD COUNT 3.64 10*6/uL (4.10-5.10); RED CELL DISTRI WIDTH 13.1 % (0-14.5); WHITE BLOOD COUNT 5.5 10*3/uL (4.8-10.8)
[2017-06-12 07:07] LABS: HEMATOCRIT 32.4 % (37.0-47.0); HEMOGLOBIN 10.8 g/dl (12.0-16.0)
[2017-06-12 07:13] LABS: ACT PARTIAL THROMBO TIME 24.4 SECONDS (20.8-31.5)
[2017-06-12 07:25] LABS: ALBUMIN 2.5 gm/dl (3.1-4.5); ALKALINE PHOSPHATASE 87 U/L (45-117); BUN 22 mg/dl (7-24); CHLORIDE 106 mmol/L (98-107); CHOLESTEROL 160 mg/dL (<200); CREATININE 0.81 mg/dL (0.55-1.02); HDL CHOLESTEROL 24 mg/dl (40-60); LDL CHOLESTEROL 78 mg/dL (9-159); MAGNESIUM 1.7 mg/dL (1.5-2.1); PHOSPHOROUS 2.4 mg/dL (2.5-4.9); POTASSIUM 3.5 mmol/L (3.5-5.1); SGOT/AST 10 IU/L (3-35); SGPT/ALT 15 U/L (12-78); SODIUM 137 mmol/L (136-145); TOTAL PROTEIN 5.6 gm/dL (6.4-8.2); TRIGLYCERIDES 291 mg/dl (<150); VLDL CHOLESTEROL 58 mg/dL (6-40)
[2017-06-12 07:31] LABS: THYROID STIM HORMONE (HS) 0.249 uIU/ml (0.358-4.75)
[2017-06-12 07:34] LABS: VITAMIN D, 25-HYDROXY 21.5 ng/mL (30-100)
--- NOTE | 2017-06-12 07:38 | NUR ---
DR. MAY NOTIFIED OF MOST RECENT SERUM CALCIUM RESULT.
[2017-06-12 08:00] VITALS: BP 132/72
--- NOTE | 2017-06-12 08:30 | NUR ---
Biometrics Consultant in to talk to patient. Patient states lives at [address] with HER . There are 13 steps in the home. Physician: DR VILLANUEVA Pharmacy: [facility] Home health services: NONE Patient's level of ADLs: INDEPENDENT Patient has working utilities: YES DME: NONE Follow-up physician's appointment after d/c: WILL BE MADE PRIOR TO DC Does patient want to access PORTAL?: Discharge plan HOME. SERGO BUENO
[2017-06-12 12:00] VITALS: BP 105/58; BP 132/72
--- NOTE | 2017-06-12 12:18 | NUR ---
MEDICATED WITH PRN PO NORCO FOR GENERALIZED JOINT PAIN.
--- NOTE | 2017-06-12 14:30 | NUR ---
PRN PO NORCO NOT VERY EFFECTIVE, PER PATIENT; SHE IS REQUESTING ADDITIONAL PAIN MEDICATION.
--- NOTE | 2017-06-12 15:34 | NUR ---
MEDICATED WITH PRN PO TYLENOL AND IV MORPHINE FOR C/O BODY ACHES AND LEFT ANTERIOR LUNG PAIN.
[2017-06-12 16:00] VITALS: BP 112/58
--- NOTE | 2017-06-12 16:28 | NUR ---
PRN PO TYLENOL AND MORPHINE EFFECTIVE, PER PATIENT.
--- NOTE | 2017-06-12 17:22 | NUR ---
DR. ANDRES NOTIFIED OF CONSULT.
[2017-06-12 20:00] VITALS: BP 108/59
[2017-06-13] VITALS: BP 104/63
--- NOTE | 2017-06-13 01:46 | NUR ---
PATIENT RESTING IN BED WITH EYES CLOSED. NO SIGNS OR SYMPTOMS OF DISTRESS NOTED. WILL CONTINUE TO MONITOR. CALL LIGHT IN REACH.
--- NOTE | 2017-06-13 02:45 | NUR ---
PATIENT MEDICATED WITH MORPHINE FOR COMPLAINTS OF LEFT SIDED PAIN WITH EFFECTIVE RESULTS NOTED. RESTING IN BED WITH EYES CLOSED AT THIS TIME. NO SIGNS OR SYMPTOMS OF DISTRESS NOTED. WILL CONTINUE TO MONITOR. CALL LIGHT IN REACH.
[2017-06-13 08:00] VITALS: BP 126/76
--- NOTE | 2017-06-13 08:49 | NUR ---
PT MEDICATED WITH PRN MORPHINE FOR C/O LEFT SIDED PLEURITIC PAIN THAT SHE RATES 05/03. WILL REACCESS.
--- NOTE | 2017-06-13 10:00 | NUR ---
PRN MORPHINE EFFECTIVE PER PT.
[2017-06-13 12:00] VITALS: BP 116/62
--- NOTE | 2017-06-13 15:06 | NUR ---
PT MEDICATED WITH PRN MPRPHINE FOR C/O LEFT SIDED PLEURITIC PAIN THAT THE PT RATES A 05/03. WILL REACCESS.
--- NOTE | 2017-06-13 15:34 | NUR ---
PT HAS DRY BENDER HELPER COUGH. UNABLE TO EXPECTORATE SPUTUM. CULTURE UNCOLLECTED.
[2017-06-13 16:00] VITALS: BP 148/50
--- NOTE | 2017-06-13 18:33 | NUR ---
DR. LOPEZ INFORMED THAT PATIENT STATES SHE IS COUGHING UP BLOOD BUT IT HAS NOT BEEN SEEN BY THIS NURSE. CEPECOL ORDERED.
--- NOTE | 2017-06-13 18:49 | NUR ---
PRN NORCO GIVEN FOR PT COMPLAINTS OF SIDE PAIN RATING IT A 10/10 FROM A COUGHING SPELL. CALL LIGHT WITHIN REACH, WILL MONITOR
[2017-06-13 20:00] VITALS: BP 141/79
--- NOTE | 2017-06-13 23:00 | NUR ---
PT AWAKE IN BED WATCHNG TV. PT STATES THAT PAIN MED WAS EFFECTIVE FOR PAIN RELIEF. CALL LIGHT IN HAND.
[2017-06-14] VITALS: BP 138/66
[2017-06-14 07:45] LABS: BUN 16 mg/dl (7-24); CHLORIDE 106 mmol/L (98-107); CREATININE 0.81 mg/dL (0.55-1.02); POTASSIUM 3.8 mmol/L (3.5-5.1); SODIUM 140 mmol/L (136-145)
[2017-06-14 08:00] VITALS: BP 134/70
[2017-06-14 12:00] VITALS: BP 154/76
--- NOTE | 2017-06-14 14:16 | NUR ---
TOMÁS CALLED INTO N/O PT TO BE NPO PAST MINDNIGHT AND EGD ON 06/15/17
[2017-06-14 16:00] VITALS: BP 142/64
--- NOTE | 2017-06-14 16:27 | NUR ---
PT MEDICATED WITH PRN MORPHINE FOR C/O LEFT SIDED PLEURITIC PAIN. 05/03. WILL REACCESS.
[2017-06-14 20:00] VITALS: BP 136/59
--- NOTE | 2017-06-14 20:35 | NUR ---
PT C/O LEFT SIDE PAIN, RATES PAIN 9 ON PAIN SCALE 0-10. MEDICATED WITH MORPHINE IV PER PRN ORDER, SEE EMAR. RESTING IN BED. CALL LIGHT IN REACH.
--- NOTE | 2017-06-14 21:24 | NUR ---
PT RESTING IN BED. RESP-EASY AND REGULAR. MEDICATION HELPED. CALL LIGHT IN REACH.
[2017-06-15] VITALS (9 sets, daily range): BP systolic 128–155; BP diastolic 54–83
--- NOTE | 2017-06-15 00:15 | NUR ---
PT RESTING IN BED. TOLERATING IV ANTIBIOTICS. NO C/O AT THIS TIME. CALL LIGHT IN REACH. SEE SHIFT ASSESSMENT.
--- NOTE | 2017-06-15 04:00 | NUR ---
SLEEPING IN BED. RESP-EASY AND REGULAR. CALL LIGHT IN REACH.
--- NOTE | 2017-06-15 05:47 | NUR ---
PT C/O LEFT RIB AREA PAIN, RATES PAIN 10 ON PAIN SCALE 0-10. MEDICATED WITH MORPHINE IV PER PT REQUEST. CALL LIGHT IN REACH. BSG-285, SEE EMAR.
[2017-06-15 07:08] LABS: BASO % 0.8 % (0.0-1.0); EOS # 0.2 10*3/uL (0.0-0.4); EOS % 4.1 % (1.0-4.0); HEMATOCRIT 36.4 % (37.0-47.0); HEMOGLOBIN 11.9 g/dl (12.0-16.0); LYMPH # 1.8 10*3/uL (1.3-4.4); LYMPH % 34.6 % (27.0-41.0); MEAN CELL VOLUME 88.1 fl (81.0-99.0); MEAN CORPUSCULAR HGB 28.8 pg (27.0-31.0); MEAN CORPUSCULAR HGB CONC 32.7 g/dl (33.0-37.0); MEAN PLATELET VOLUME 12.1 fl (9.6-12.3); MONO # 0.5 10*3/uL (0.1-1.0); MONO % 9.1 % (3.0-9.0); NEUT # 2.7 10*3/uL (2.3-7.9); PLATELET COUNT AUTOMATED 128 10*3/uL (130-400); RED BLOOD COUNT 4.13 10*6/uL (4.10-5.10); WHITE BLOOD COUNT 5.2 10*3/uL (4.8-10.8)
[2017-06-15 07:13] LABS: BUN 19 mg/dl (7-24); CHLORIDE 107 mmol/L (98-107); CREATININE 0.89 mg/dL (0.55-1.02); POTASSIUM 4.3 mmol/L (3.5-5.1); SODIUM 137 mmol/L (136-145)
--- NOTE | 2017-06-15 09:00 | NUR ---
case management visits with patient, patient denies any home needs
--- NOTE | 2017-06-15 09:15 | NUR ---
PLATELETS STARTED AT [address] PUGH.
--- NOTE | 2017-06-15 20:00 | NUR ---
RESTING IN BED. RESP-EASY AND REGULAR. NO C/O AT THIS TIME. CALL LIGHT IN REACH.
--- NOTE | 2017-06-15 22:00 | NUR ---
RESTING IN BED. TOLERATED ROUTINE MED WITH NO PROBLEM. BSG-234, SEE EMAR. NO C/O AT THIS TIME. CALL LIGHT IN REACH.
[2017-06-16] VITALS: BP 136/72
--- NOTE | 2017-06-16 | NUR ---
SLEEPING IN BED, AWAKENS EASILY. TOLERATING IV ANTIBIOTIC WITH NO PROBLEM. CALL LIGHT IN REACH.
--- NOTE | 2017-06-16 04:10 | NUR ---
SLEEPING IN BED. RESP-EASY AND REGULAR. CALL LIGHT IN REACH.
--- NOTE | 2017-06-16 04:35 | NUR ---
PT C/O LEFT SIDE/RIB PAIN, RATES PAIN 9 ON PAIN SCALE 0-10. MEDICATED WITH MORPHINE IV PER PRN ORDER, SEE EMAR. CALL LIGHT IN REACH.
--- NOTE | 2017-06-16 05:10 | NUR ---
SLEEPING IN BED. RESP-EASY AND REGULAR. MEDICATION EFFECTIVE. CALL LIGHT IN REACH.
--- NOTE | 2017-06-16 06:00 | NUR ---
BSG-301, WATNS TO WAIT FOR COVERAGE UNTIL BREAKFAST. CALL LIGHT IN REACH.
[2017-06-16 08:00] VITALS: BP 150/80
--- NOTE | 2017-06-16 08:00 | NUR ---
IN BED AWAKE ALERT AND ORIENTED X3, NO S/S OF DISTRESS. NO C/O. WILL CONT TO MONITOR. CALL LIGHT IN REACH. SEE ASSESS
--- NOTE | 2017-06-16 11:02 | NUR ---
C/O LEFT SIDED RIB PAIN OF 10/10. IV MORPHINE GIVEN AT THIS TIME PER PT REQUEST. WILL CONT TO MONITOR
--- NOTE | 2017-06-16 11:57 | NUR ---
IV MORPHINE EFF FOR PT FOR C/O LEFT SIDED RIB PAIN.
[2017-06-16 12:00] VITALS: BP 129/61
[2017-06-16 16:00] VITALS: BP 134/77
[2017-06-16 20:00] VITALS: BP 139/77
--- NOTE | 2017-06-16 20:04 | NUR ---
Medicated with Morphine IV prn for lt rib pain rating 10/10. Will monitor effectiveness. Call light within reach.
--- NOTE | 2017-06-16 21:00 | NUR ---
Patient resting quietly in bed,watching TV and laughing. Morphine effective. Will continue to monitor. Call light within reach.
[2017-06-17] VITALS: BP 136/68
--- NOTE | 2017-06-17 00:23 | NUR ---
24 HR chart check completed.
--- NOTE | 2017-06-17 05:36 | NUR ---
Medicated with Morphine IV prn for lt rib pain rating 10/10. Will monitor effectiveness. Call light within reach.
--- NOTE | 2017-06-17 06:30 | NUR ---
Patient resting quietly in bed with eyes closed. Morphine effective. Will continue to monitor. Call light within reach.
[2017-06-17 08:00] VITALS: BP 160/84
[2017-06-17 12:00] VITALS: BP 138/74
[2017-06-17 16:00] VITALS: BP 145/76
[2017-06-17] MEDS ORDERED: VIBRAMYCIN100 MG PO (17:58)
--- NOTE | 2017-06-17 19:09 | NUR ---
mediport discontinued. PT AMBULATED OFF THE FLOOR WITH HER TO A PRIVATE CAR. DISCHARGE INSTRUCTIONS REVIEWED. PATIENT WALKED IN [place] WITH THIS NURSE TO CHECK PULSE OX AND DID NOT DROP BELOW 96% ON ROOM AIR.
== END 2017-06-17 18:38 | disposition home or self-care (01) | DRG 871 ==
LOC: ED 20:35 → EDHOLD 06-12 00:24 → 5E 06-12 00:24
PROVIDERS: Emergency Medicine Emergency Medical Services; Hospitalist; Internal Medicine; ADMIT Internal Medicine
DX: A41.9 Sepsis, unspecified organism (principal); N17.0 Acute kidney failure with tubular necrosis; E44.0 Moderate protein-calorie malnutrition; K22.2 Esophageal obstruction; E87.1 Hypo-osmolality and hyponatremia; J18.1 Lobar pneumonia, unspecified organism; E11.65 Type 2 diabetes mellitus with hyperglycemia; R65.20 Severe sepsis without septic shock; I10 Essential (primary) hypertension; E03.9 Hypothyroidism, unspecified; G43.909 Migraine, unspecified, not intractable, without status migrainosus; G47.00 Insomnia, unspecified; Y95 Nosocomial condition; K29.70 Gastritis, unspecified, without bleeding; D64.9 Anemia, unspecified; E55.9 Vitamin D deficiency, unspecified; M50.30 Other cervical disc degeneration, unspecified cervical region; E89.2 Postprocedural hypoparathyroidism; G47.33 Obstructive sleep apnea (adult) (pediatric); M19.90 Unspecified osteoarthritis, unspecified site; E66.9 Obesity, unspecified; Z90.49 Acquired absence of other specified parts of digestive tract; Z90.710 Acquired absence of both cervix and uterus; Z87.891 Personal history of nicotine dependence; Z68.38 Body mass index [BMI] 38.0-38.9, adult; Z79.4 Long term (current) use of insulin; Z79.82 Long term (current) use of aspirin; Z79.899 Other long term (current) drug therapy; Z88.1 Allergy status to other antibiotic agents; Z88.5 Allergy status to narcotic agent; Z88.8 Allergy status to other drugs, medicaments and biological substances; Z83.3 Family history of diabetes mellitus; Z83.79 Family history of other diseases of the digestive system; Z82.49 Family history of ischemic heart disease and other diseases of the circulatory system

== ENCOUNTER 2017-08-04 13:41 | Emergency (ER) | payer BC ==
[~2017-08-04] VITALS: Wt 97.1 kg
[~2017-08-04 13:41] MED LIST changes: +VIBRAMYCIN100 MG PO
[2017-08-04] MEDS ORDERED: VIBRAMYCIN100 MG PO (13:55)
== END 2017-08-04 14:00 | disposition home or self-care (01) ==
LOC: ED 13:41
DX: S30.861A Insect bite (nonvenomous) of abdominal wall, initial encounter (principal); R03.0 Elevated blood-pressure reading, without diagnosis of hypertension; E66.9 Obesity, unspecified; W57.XXXA Bitten or stung by nonvenomous insect and other nonvenomous arthropods, initial encounter; Y93.89 Activity, other specified; Y99.8 Other external cause status; Y92.89 Other specified places as the place of occurrence of the external cause; Z68.30 Body mass index [BMI] 30.0-30.9, adult; Z88.1 Allergy status to other antibiotic agents; Z88.6 Allergy status to analgesic agent

== ENCOUNTER 2017-11-02 08:25 | Emergency (ER) | payer BC ==
[~2017-11-02] VITALS: Ht 162.5 cm; Wt 97.1 kg
[2017-11-02] MEDS ORDERED: CLARITIN10 MG PO (09:11)
[2017-11-02] MEDS ORDERED: FLONASE ALLERG9.9 ML NAS (09:11)
[2017-11-02] MEDS ORDERED: ROBITUSSIN DM 105 ML PO (09:11)
== END 2017-11-02 10:20 | disposition home or self-care (01) ==
LOC: ED 08:25
DX: B34.9 Viral infection, unspecified (principal); R03.0 Elevated blood-pressure reading, without diagnosis of hypertension; E11.9 Type 2 diabetes mellitus without complications; K86.1 Other chronic pancreatitis; Z90.49 Acquired absence of other specified parts of digestive tract; Z90.710 Acquired absence of both cervix and uterus; Z79.4 Long term (current) use of insulin; Z79.82 Long term (current) use of aspirin; Z88.5 Allergy status to narcotic agent; Z88.1 Allergy status to other antibiotic agents; Z88.8 Allergy status to other drugs, medicaments and biological substances

== ENCOUNTER 2017-11-28 14:12 | Emergency (ER) | payer BC ==
[~2017-11-28] VITALS: Ht 162.5 cm; Wt 97.1 kg
[2017-11-28] MEDS ORDERED: AMOXICILLIN500 M3 PO (14:39)
[2017-11-28] MEDS ORDERED: FLONASE ALLERG9.9 ML NAS (14:39)
== END 2017-11-28 14:53 | disposition home or self-care (01) ==
LOC: ED 14:12
DX: H66.93 Otitis media, unspecified, bilateral (principal); Z88.1 Allergy status to other antibiotic agents; Z88.6 Allergy status to analgesic agent; Z88.8 Allergy status to other drugs, medicaments and biological substances; Z79.899 Other long term (current) drug therapy; Z79.82 Long term (current) use of aspirin; Z87.891 Personal history of nicotine dependence

== ENCOUNTER 2018-01-01 17:22 | Emergency (ER) | payer BC ==
[~2018-01-01] VITALS: Wt 97.1 kg
[~2018-01-01 17:22] MED LIST changes: +AMOXICILLIN500 M3 PO
== END 2018-01-01 19:19 | disposition home or self-care (01) ==
LOC: ED 17:22
DX: G89.29 Other chronic pain (principal); R51 Headache; Z90.710 Acquired absence of both cervix and uterus; Z90.49 Acquired absence of other specified parts of digestive tract; Z79.899 Other long term (current) drug therapy; Z88.5 Allergy status to narcotic agent; Z88.1 Allergy status to other antibiotic agents; Z88.8 Allergy status to other drugs, medicaments and biological substances

== ENCOUNTER 2018-02-04 20:55 | Emergency (ER) | payer BC ==
[~2018-02-04] VITALS: Ht 162.5 cm; Wt 97.1 kg
[2018-02-04 22:10] LABS: BASO % 0.5 % (0.0-1.0); EOS # 0.2 10*3/uL (0.0-0.4); EOS % 2.7 % (1.0-4.0); HEMATOCRIT 42.2 % (37.0-47.0); HEMOGLOBIN 13.9 g/dl (12.0-16.0); LYMPH # 2.7 10*3/uL (1.3-4.4); LYMPH % 35.7 % (27.0-41.0); MEAN CELL VOLUME 91.1 fl (81.0-99.0); MEAN CORPUSCULAR HGB CONC 32.9 g/dl (33.0-37.0); MEAN PLATELET VOLUME 12.1 fl (9.6-12.3); MONO # 0.7 10*3/uL (0.1-1.0); NEUT # 3.9 10*3/uL (2.3-7.9); PLATELET COUNT AUTOMATED 116 10*3/uL (130-400); RED BLOOD COUNT 4.63 10*6/uL (4.10-5.10); RED CELL DISTRI WIDTH 14.5 % (0-14.5); WHITE BLOOD COUNT 7.4 10*3/uL (4.8-10.8)
[2018-02-04 22:21] LABS: ALBUMIN 3.7 gm/dl (3.1-4.5); CREATININE 1.33 mg/dL (0.55-1.02); POTASSIUM 3.5 mmol/L (3.5-5.1); TOTAL PROTEIN 7.2 gm/dL (6.4-8.2)
[2018-02-04] MEDS ORDERED: AUGMENTIN 875875 MG PO (23:54)
== END 2018-02-05 00:20 | disposition home or self-care (01) ==
LOC: ED 20:55
PROVIDERS: Physician Assistant
DX: L04.9 Acute lymphadenitis, unspecified (principal); M54.2 Cervicalgia; Z88.1 Allergy status to other antibiotic agents; Z88.6 Allergy status to analgesic agent; Z88.8 Allergy status to other drugs, medicaments and biological substances; Z79.899 Other long term (current) drug therapy; Z79.82 Long term (current) use of aspirin; Z87.891 Personal history of nicotine dependence

== ENCOUNTER 2018-03-13 23:35 | Inpatient (IN) | payer BC ==
[~2018-03-13] VITALS: Ht 165.1 cm; Wt 108.0 kg
--- NOTE | ~2018-03-13 | ST ---
[place], [place] EXERCISE STRESS TEST REPORT NAME: CHRIS ECHEVERRIA UNIT #: [id number] ROOM: 523 DOCTOR: JAZ BIRD MD BIRTHDATE: [birth year] DOS: 03/15/2018 The patient is a 57-year-old female scheduled for a cardiac stress test by Dr. Antonio Aparicio, the roughener. The patient was infused with 0.4 mg of IV Lexiscan over 10 seconds, which was followed by Cardiolite infusion. The patient developed some shortness of breath after the Lexiscan infusion, but overall she tolerated the test very well. Her baseline EKG showed normal sinus rhythm with a heart rate of 76 beats per minute, normal cardiac axis, no significant ST-T abnormality. Very slight intraventricular conduction delay and poor progression of R waves in lateral precordial leads. During the stress phase and the recovery phase, the patient did not develop any significant EKG abnormality and no angina-like symptoms. The patient's heart rate ranged between 76-100 beats per minute and blood pressure ranged between 114 systolic over 62 diastolic to 120 systolic over 78 diastolic. Normal EKG part of the Lexiscan Cardiolite cardiac stress test. Cardiolite results to be reported by Dr. Antonio Aparicio later today. JAZ BIRD MD CM:STRESS:EXERCISE STRESS TEST REPORT [id number] JAZ BIRD MD
--- NOTE | ~2018-03-13 | CON ---
[place], [place] REPORT OF CONSULTATION NAME: CHRIS ECHEVERRIA [facility] #[facility] [id number] UNIT #: [id number] ROOM: 523 DOCTOR: JERROD LOTT MD BIRTHDATE: [birth year] DOS: 03/14/2018 HISTORY OF PRESENT ILLNESS: This is a 57-year-old -[place] woman with a history of morbid obesity, essential hypertension, hypothyroidism, hyperlipidemia, diabetes mellitus, migraines, anemia, who has had pneumonia in the past, also has Batres-Michoacano syndrome. She has never had a heart attack, heart failure or any known coronary artery disease. Dr. Aparicio informed me that he had done a couple of left heart catheterizations on this patient and found no coronary artery stenosis. She has never had any rhythm disorder of the heart. Surgical history includes appendectomy, cholecystectomy, hysterectomy, parathyroidectomy, partial thyroidectomy, tonsillectomy. She does not smoke nor does she drink alcoholic beverages. Lives at home with her and is a reasonably active lady. She had noticed shortness of breath that appeared 3-4 days prior to this admission. She also noticed localized left anterior chest pain over the breast area more like a pushing feeling and also had then heavy feeling in the chest like she could not breathe. The localized pain went into the back. It lasts for 1-2 minutes and comes and goes while she is resting. She walked in the hallways and did not have this chest pain. There has not been any PND, orthopnea, or swelling of the lower extremities. HOME MEDICATIONS: Include amoxicillin, aspirin, atorvastatin, captopril, furosemide 40 daily, insulin, levothyroxine, Robaxin, Lyrica, Januvia, Topamax, trazodone, and vitamin D. PHYSICAL EXAMINATION: GENERAL: This revealed a patient who is moderately obese. She is sitting in bed. She is very comfortable. Complexion is fine without any jaundice, cyanosis or pallor. There is no thyromegaly. No finger clubbing is present. VITAL SIGNS: Pulse is regular at 76, blood pressure 110/68. NECK: Normal JVP. AJR is negative. No bruit in the neck. HEART: There is no cardiomegaly, no murmurs were present. EXTREMITIES: She has good pedal pulses and no edema of the lower extremities. RESPIRATORY: She is not tachypneic. Percussion note is normal. Auscultation reveals a few bibasilar crackles. ABDOMEN: Large, supple, no obvious organomegaly and there is no bruit or pulsatile mass. Bowel sounds are normal. ECGs have shown normal sinus rhythm and normal pattern except for low voltage in precordial leads due to patient's obesity. Chest x-ray was reviewed by me and it does not demonstrate any cardiomegaly, pulmonary congestion or infiltrates. Troponin I levels have been less than 0.015 x 2. BUN 40, creatinine 1.29, potassium is 3.9. Hemoglobin 13 grams. IMPRESSION: This patient with the multiple risk factors for coronary artery disease, had "normal" coronary arteries a few years ago and a normal [place], [place] REPORT OF CONSULTATION NAME: CHRIS ECHEVERRIA UNIT #: [id number] ROOM: 523 DOCTOR: JERROD LOTT MD BIRTHDATE: [birth year] echocardiogram less than 2 years ago. She has symptoms that are somewhat atypical for myocardial ischemia. She walked in the hallways and did not have any chest discomfort, although had some discomfort through the night on and off. She has ruled out for acute myocardial infarction. RECOMMENDATIONS: I think she should be ambulated in the hallway; if she is feeling fine, she may be discharged home with a followup with Dr. Aparicio next week. You may want [facility] for next Sunday for Dr. Aparicio to do. I thank you on behalf of Dr. Aparicio for this consult. JERROD LOTT MD CM:CONSTR:REPORT OF CONSULTATION 1221 03/21/18 0848 interface
[2018-03-13 23:35] VITALS: BP 120/61
[2018-03-13 23:54] LABS: BASO % 0.6 % (0.0-1.0); EOS # 0.2 10*3/uL (0.0-0.4); EOS % 2.7 % (1.0-4.0); HEMATOCRIT 40.6 % (37.0-47.0); LYMPH # 2.4 10*3/uL (1.3-4.4); LYMPH % 36.9 % (27.0-41.0); MEAN CELL VOLUME 92.3 fl (81.0-99.0); MEAN CORPUSCULAR HGB 29.5 pg (27.0-31.0); MEAN PLATELET VOLUME 11.9 fl (9.6-12.3); MONO # 0.6 10*3/uL (0.1-1.0); MONO % 9.4 % (3.0-9.0); NEUT # 3.3 10*3/uL (2.3-7.9); NEUT % 50.1 % (47.0-73.0); PLATELET COUNT AUTOMATED 98 10*3/uL (130-400); RED CELL DISTRI WIDTH 13.7 % (0-14.5); WHITE BLOOD COUNT 6.6 10*3/uL (4.8-10.8)
[2018-03-14] VITALS (7 sets, daily range): BP systolic 86–130; BP diastolic 44–71
[2018-03-14 00:03] LABS: ACT PARTIAL THROMBO TIME 21.5 SECONDS (20.8-31.5)
[2018-03-14 00:10] LABS: ALBUMIN 3.5 gm/dl (3.1-4.5); ALKALINE PHOSPHATASE 125 U/L (45-117); BUN 40 mg/dl (7-24); CHLORIDE 111 mmol/L (98-107); CREATININE 1.29 mg/dL (0.55-1.02); POTASSIUM 3.9 mmol/L (3.5-5.1); SGOT/AST 15 IU/L (3-35); SGPT/ALT 34 U/L (12-78); SODIUM 144 mmol/L (136-145); TOTAL PROTEIN 7.1 gm/dL (6.4-8.2)
[2018-03-14 00:22] LABS: TROPONIN I < 0.015 ng/ml (<0.045)
[2018-03-14 05:51] LABS: BASO % 0.6 % (0.0-1.0); EOS # 0.2 10*3/uL (0.0-0.4); EOS % 2.7 % (1.0-4.0); HEMOGLOBIN 12.3 g/dl (12.0-16.0); LYMPH # 2.2 10*3/uL (1.3-4.4); LYMPH % 35.4 % (27.0-41.0); MEAN CELL VOLUME 93.1 fl (81.0-99.0); MEAN CORPUSCULAR HGB 29.4 pg (27.0-31.0); MEAN CORPUSCULAR HGB CONC 31.5 g/dl (33.0-37.0); MEAN PLATELET VOLUME 12.5 fl (9.6-12.3); MONO # 0.6 10*3/uL (0.1-1.0); MONO % 9.2 % (3.0-9.0); NEUT # 3.3 10*3/uL (2.3-7.9); NEUT % 51.9 % (47.0-73.0); PLATELET COUNT AUTOMATED 92 10*3/uL (130-400); RED BLOOD COUNT 4.19 10*6/uL (4.10-5.10); RED CELL DISTRI WIDTH 13.7 % (0-14.5); WHITE BLOOD COUNT 6.3 10*3/uL (4.8-10.8)
[2018-03-14 05:54] LABS: ALBUMIN 3.2 gm/dl (3.1-4.5); ALKALINE PHOSPHATASE 97 U/L (45-117); BUN 34 mg/dl (7-24); CHLORIDE 109 mmol/L (98-107); CHOLESTEROL 61 mg/dL (<200); FREE T4 1.13 ng/dl (0.76-1.46); HDL CHOLESTEROL 34 mg/dl (40-60); POTASSIUM 3.3 mmol/L (3.5-5.1); SGOT/AST 17 IU/L (3-35); SGPT/ALT 29 U/L (12-78); SODIUM 144 mmol/L (136-145); TOTAL PROTEIN 6.4 gm/dL (6.4-8.2); TRIGLYCERIDES 278 mg/dl (<150)
[2018-03-14 09:57] LABS: VITAMIN D, 25-HYDROXY 30.3 ng/mL (30-100)
[2018-03-14] MEDS ORDERED: FELDENE20 MG PO (14:43)
[2018-03-14] MEDS ORDERED: GLIPIZIDE10 M2 PO (14:44)
[2018-03-14] MEDS ORDERED: BUMETANIDE2 MG PO (14:44)
[2018-03-14] MEDS ORDERED: VITAMIN D22000 UNIT PO (14:45)
[2018-03-14] MEDS ORDERED: CYMBALTA30 MG PO (14:47)
[2018-03-14] MEDS ORDERED: PROMETHAZINE25 M1 PO (14:48)
[2018-03-14] MEDS ORDERED: TRULICITY0.75 MG/0. SC (15:03)
[2018-03-14] MEDS ORDERED: REPATHA SU140 MG/1 M SQ (15:05)
[2018-03-15] VITALS: BP 90/52
[2018-03-15 06:29] LABS: BASO % 0.6 % (0.0-1.0); EOS # 0.1 10*3/uL (0.0-0.4); EOS % 2.8 % (1.0-4.0); HEMATOCRIT 39.2 % (37.0-47.0); HEMOGLOBIN 12.2 g/dl (12.0-16.0); LYMPH # 1.6 10*3/uL (1.3-4.4); LYMPH % 31.6 % (27.0-41.0); MEAN CELL VOLUME 94.7 fl (81.0-99.0); MEAN CORPUSCULAR HGB 29.5 pg (27.0-31.0); MEAN CORPUSCULAR HGB CONC 31.1 g/dl (33.0-37.0); MEAN PLATELET VOLUME 11.8 fl (9.6-12.3); MONO # 0.4 10*3/uL (0.1-1.0); MONO % 8.8 % (3.0-9.0); NEUT # 2.8 10*3/uL (2.3-7.9); PLATELET COUNT AUTOMATED 78 10*3/uL (130-400); RED BLOOD COUNT 4.14 10*6/uL (4.10-5.10); RED CELL DISTRI WIDTH 13.5 % (0-14.5)
[2018-03-15 06:55] LABS: CHLORIDE 114 mmol/L (98-107); CREATININE 0.84 mg/dL (0.55-1.02); POTASSIUM 4.2 mmol/L (3.5-5.1); SODIUM 145 mmol/L (136-145)
[2018-03-15 06:56] LABS: BUN 21 mg/dl (7-24)
[2018-03-15 08:00] VITALS: BP 114/57
[2018-03-15 12:00] VITALS: BP 126/68
[2018-03-15 16:00] VITALS: BP 121/53
== END 2018-03-15 18:21 | disposition home or self-care (01) | DRG 313 ==
LOC: ED 23:35 → 5E 03-14 01:38 → EDHOLD 03-14 01:38 → 5E 03-14 01:45 → EDBEDREQ 03-14 01:45 → 5E 03-15 18:21
PROVIDERS: Emergency Medicine Emergency Medical Services; Internal Medicine; Internal Medicine Hospice and Palliative Medicine
PROC: 3E073KZ Introduction of Other Diagnostic Substance into Coronary Artery, Percutaneous Approach (ICD-10-PCS; principal; 2018-03-15)
PROC: 4A02XM4 Measurement of Cardiac Total Activity, External Approach (ICD-10-PCS; principal; 2018-03-15)
DX: R07.9 Chest pain, unspecified (principal); I25.2 Old myocardial infarction; N17.0 Acute kidney failure with tubular necrosis; L51.1 Stevens-Johnson syndrome; K86.1 Other chronic pancreatitis; E11.65 Type 2 diabetes mellitus with hyperglycemia; E66.01 Morbid (severe) obesity due to excess calories; Z68.41 Body mass index [BMI] 40.0-44.9, adult; E83.51 Hypocalcemia; E87.8 Other disorders of electrolyte and fluid balance, not elsewhere classified; I10 Essential (primary) hypertension; E78.5 Hyperlipidemia, unspecified; M50.30 Other cervical disc degeneration, unspecified cervical region; G43.909 Migraine, unspecified, not intractable, without status migrainosus; Z90.49 Acquired absence of other specified parts of digestive tract; Z90.710 Acquired absence of both cervix and uterus; Z98.891 History of uterine scar from previous surgery; Z87.891 Personal history of nicotine dependence; Z82.49 Family history of ischemic heart disease and other diseases of the circulatory system; Z83.79 Family history of other diseases of the digestive system; Z88.1 Allergy status to other antibiotic agents; Z88.5 Allergy status to narcotic agent; Z88.4 Allergy status to anesthetic agent; Z88.9 Allergy status to unspecified drugs, medicaments and biological substances; Z79.82 Long term (current) use of aspirin; Z79.4 Long term (current) use of insulin; Z79.899 Other long term (current) drug therapy; G47.00 Insomnia, unspecified; E87.6 Hypokalemia; E89.0 Postprocedural hypothyroidism

== ENCOUNTER 2018-08-17 17:28 | Emergency (ER) | payer BC ==
[~2018-08-17] VITALS: Ht 162.5 cm; Wt 97.1 kg
[~2018-08-17 17:28] MED LIST changes: +BUMETANIDE2 MG PO; +CYMBALTA30 MG PO; +D3-20002000 UNIT PO; +GLIPIZIDE10 M2 PO; +REPATHA SU140 MG/1 M SQ; +TRESIBA FL100 UNIT/1 SQ; +TRULICITY0.75 MG/0. SC; +VITAMIN D22000 UNIT PO
[2018-08-17 18:28] LABS: BASO % 0.6 % (0.0-1.0); EOS # 0.1 10*3/uL (0.0-0.4); EOS % 1.5 % (1.0-4.0); HEMATOCRIT 41.8 % (37.0-47.0); LYMPH # 1.7 10*3/uL (1.3-4.4); LYMPH % 25.3 % (27.0-41.0); MEAN CELL VOLUME 90.9 fl (81.0-99.0); MEAN CORPUSCULAR HGB 30.4 pg (27.0-31.0); MEAN CORPUSCULAR HGB CONC 33.5 g/dl (33.0-37.0); MEAN PLATELET VOLUME 12.4 fl (9.6-12.3); MONO # 0.7 10*3/uL (0.1-1.0); MONO % 9.8 % (3.0-9.0); NEUT # 4.3 10*3/uL (2.3-7.9); NEUT % 62.7 % (47.0-73.0); PLATELET COUNT AUTOMATED 101 10*3/uL (130-400); RED CELL DISTRI WIDTH 12.7 % (0-14.5); WHITE BLOOD COUNT 6.8 10*3/uL (4.8-10.8)
[2018-08-17 18:45] LABS: ALBUMIN 3.4 gm/dl (3.1-4.5); CREATININE 1.48 mg/dL (0.55-1.02); POTASSIUM 4.4 mmol/L (3.5-5.1); TOTAL PROTEIN 7.2 gm/dL (6.4-8.2)
[2018-08-17] MEDS ORDERED: MUCINEX1200 M1 PO (19:31)
[2018-08-17] MEDS ORDERED: DOXYCYCLINE100 M3 PO (19:31)
[2018-08-17] MEDS ORDERED: PREDNISONE50 MG PO (19:31)
== END 2018-08-17 19:34 | disposition home or self-care (01) ==
LOC: ED 17:28
PROVIDERS: Nurse Practitioner Family
DX: J44.1 Chronic obstructive pulmonary disease with (acute) exacerbation (principal); Z87.891 Personal history of nicotine dependence; Z88.6 Allergy status to analgesic agent; Z88.1 Allergy status to other antibiotic agents; Z88.8 Allergy status to other drugs, medicaments and biological substances; Z79.899 Other long term (current) drug therapy; Z79.82 Long term (current) use of aspirin

== ENCOUNTER 2018-08-18 10:47 | Inpatient (IN) | payer BC ==
[~2018-08-18] VITALS: Ht 162.6 cm; Wt 107.7 kg
--- NOTE | ~2018-08-18 | PR ---
[place], [place] PROGRESS NOTE [id number] UN[facility] #: [id number] ROOM: 522 DOCTOR: JENN VALDEZ MD BIRTHDATE: [birth year] DOS: 08/21/2018 PULMONARY ADDENDUM NOTE SUBJECTIVE: The patient was independently seen and examined in [id number] encounter, history was confirmed. Physical examination was performed. Labs were reviewed. Assessment and management of the today's note personally completed. Note done by the medical orderly was approved. She has been noted marked improvement in symptoms of shortness breath, cough, and wheezing. There were no symptoms of chest pain or hemoptysis reported. Blood sugar has been noted better controlled. OBJECTIVE: VITAL SIGNS: Normal temperature, respiratory rate is 20, heart rate is 66, blood pressure is 112/64, and pulse oxygen saturation on room air is 97% saturation. HEENT: Examination shows head was atraumatic. Eyes nonicterus. NECK: Supple. CARDIOVASCULAR SYSTEM: S1, S2 is audible. LUNGS: Without any wheeze or crackles. ABDOMEN: Soft, nontender. Bowel sounds present. EXTREMITIES: No acute edema. IMPRESSION: 1. Resolving acute exacerbation of bronchial asthma. 2. Possible suspicion of obstructive sleep apnea disorder. 3. Chronic obesity. 4. Past history of tobacco use. PLAN OF TREATMENT: The patient could be discharged home on oral medication such as tapering prednisone and antibiotic. Also, changes of the medication for diabetes control per the primary care attending. Followup office visit to be scheduled by the patient after discharge to be assessed for bronchial asthma and for possibility of obstructive sleep apnea disorder. [place], [place] PROGRESS NOTE NAME: CHRIS ECHEVERRIA UNIT #: [id number] ROOM: 522 DOCTOR: JENN VALDEZ MD BIRTHDATE: [birth year] JENN ANDRES MD CM:PNTRANS [id number] JENN SOLIS MD 08/21/182306 interface
--- NOTE | ~2018-08-18 | PR ---
[place], [place] PROGRESS NOTE NAME: CHRIS ECHEVERRIA UNIT #: [id number] ROOM: 522 DOCTOR: JENN VALDEZ MD BIRTHDATE: [birth year] DOS: 08/20/2018 PULMONARY ADDENDUM NOTE SUBJECTIVE: The patient was independently seen and examined in zhvm-tj-[id number] encounter, history was confirmed, physical examination performed and labs were reviewed. The assessment and management of the patient's today visit were personally completed. Note done by the phlebotomist medical lab assistant was approved as well. The patient noted comfortable at this time, resting in the bed without any acute distress, has been noticed with the reduction in symptoms of cough, wheezing and shortness of breath. Denies symptoms of fever or chills. Denies symptoms of hemoptysis. PHYSICAL EXAMINATION: VITAL SIGNS: The patient for this morning, normal temperature, respiratory rate 20, heart rate 73, blood pressure 132/72, pulse oxygen saturation of the patient recorded as 97% at rest on room air. HEENT: Examination shows head was atraumatic. Eyes nonicterus. Chronic obesity. CARDIOVASCULAR: S1, S2 audible. LUNGS: Without any wheeze or crackle. Breaths are noted [id number] decreased bilaterally. ABDOMEN: Soft and obese. EXTREMITIES: Without acute edema. LABORATORY DATA: Glucose of the patient at bedside was recorded at midnight at 29-598. The culture of the sputum preliminary shows normal tracie. Blood cultures, no bacterial growth taken on 08/18/2018. IMPRESSION: Resolving acute exacerbation of bronchial asthma of the patient with acute bronchitis, severely uncontrolled diabetes mellitus. Past history of nicotine use. PLAN OF MANAGEMENT: Further reduce the Solu-Medrol. Maximize the management of uncontrolled diabetes. Discharge planning for the patient per primary care physician. Usual care, other supportive therapy, plan of management. The acute kidney injury of the patient has been improving progressively. The patient was also noted thrombocytopenia, mild, the patient's etiology unclear. [place], [place] PROGRESS NOTE NAME: CHRIS ECHEVERRIA UNIT #: [id number] ROOM: 522 DOCTOR: JENN VALDEZ MD BIRTHDATE: [birth year] JENN ANDRES MD CM:PNJUSTINA [phone] JENN SOLIS MD 08/20/182348 interface
--- NOTE | ~2018-08-18 | EKG ---
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
--- NOTE | ~2018-08-18 | PR ---
[place], [place] PROGRESS NOTE [id number] UNIT #: [id number] ROOM: 522 DOCTOR: EVAN SEWELL BIRTHDATE: [birth year] DOS: 08/20/2018 PULMONARY PROGRESS NOTE SUBJECTIVE: The patient is noted comfortable at this time, resting in the bed. The patient states she is feeling and breathing better, especially when walking. OBJECTIVE: VITAL SIGNS: Normal temperature, respirations 20, heart rate 73, blood pressure 132/72, pulse ox on room air 97% saturation. HEENT: Shows head was atraumatic. Eyes nonicterus. NECK: Supple. CARDIOVASCULAR: S1, S2 is audible. LUNGS: Without any crackles, clear throughout. ABDOMEN: Soft and nontender. LABORATORY DATA: CBC this morning, white blood cell count 7.7, hemoglobin 11.2, platelet count low at 102. CMP this morning, glucose 529. IMPRESSION: 1. Resolving acute bronchitis and wheezing related to possibility of acute exacerbation of bronchial asthma and acute bronchitis. 2. History of esophageal stricture in the past, pneumonia secondary to that. PLAN OF MANAGEMENT: The patient can be discharged from a pulmonary standpoint at this time on steroid taper and antibiotics of the hospitalist choosing. EVAN SEWELL DO JENN ANDRES MD CM:PNJUSTINA [id number] EVAN SEWELL 08/20/18 1741 interface
--- NOTE | ~2018-08-18 | PR ---
[place], [place] PROGRESS NOTE NAME: CHRIS ECHEVERRIA [facility] #: [id number] UNIT #: [id number] ROOM: 522 DOCTOR: EVAN SEWELL BIRTHDATE: [birth year] DOS: 08/21/2018 PULMONARY PROGRESS NOTE SUBJECTIVE: The patient was noted comfortable at this time, resting in the bed without any acute distress. The patient states she is feeling better with reduction in symptoms of cough, wheezing and shortness of breath. The patient denies symptoms of fevers or chills. OBJECTIVE: VITAL SIGNS: Normal temperature, respiratory rate 20, heart rate 66, blood pressure 122/64, pulse oxygen saturation on room air 97% saturation. HEENT: Head was atraumatic. Eyes nonicterus. Chronic obesity. CARDIOVASCULAR: S1, S2 audible. LUNGS: Clear without any wheezing or crackles. Breath noted mild to moderate decreased bilaterally. ABDOMEN: Soft and obese. EXTREMITIES: No acute edema. IMPRESSION: Resolving acute bronchitis and wheezing due to acute exacerbation of bronchial asthma and acute bronchitis. PLAN OF MANAGEMENT: Discharge planning for the patient per primary care physician, usual care. Other supportive therapy, plan of management. The patient also noted with thrombocytopenia, mild. The patient's etiology is unclear. EVAN SEWELL DO JENN ANDRES MD CM:PNTRANS [id number] EVAN SEWELL 08/21/18 1450 interface
--- NOTE | ~2018-08-18 | CON ---
[place], [place] REPORT OF CONSULTATION NAME: CHRIS ECHEVERRIA [facility] #: [id number] UNIT #: [id number] ROOM: 522 DOCTOR: JENN VALDEZ MD BIRTHDATE: [birth year] DOS: 08/19/2018 PULMONARY CONSULTATION REQUESTED WITH REQUESTED BY: Hospitalist services. REASON FOR CONSULTATION: Assessment of current symptoms of shortness of breath. HISTORY OF PRESENT ILLNESS: This is a 57-year-old white female, who has a longstanding history of diabetes mellitus and other problems, presented to the hospital as the patient has developed symptoms of acute bronchitis, exacerbation of bronchial asthma and others, treated with corticosteroids. The patient's blood sugar was noted as greater than 600. She has been noted persistent symptoms of shortness of breath, which has now been relieved. She does report symptoms of coughing with small amount of sputum expectoration. Symptoms of fever or chills. The patient denies symptoms of nausea, vomiting, diarrhea or any abdominal pain. The patient has been managed with current symptoms and blood glucose has been managed for this patient with intravenous fluids as well as an insulin coverage and other medical management provided. She denies any symptoms of pain in the chest. REVIEW OF SYSTEMS: CONSTITUTIONAL: Fatigue and tiredness noted without any symptoms of fever or chills. EYES: Denies any burning, redness, or tenderness. EARS, NOSE, THROAT SYMPTOMS: Denies sore throat, hoarseness, otalgia, postnasal drainage or epistaxis. CARDIOVASCULAR: No angina pain, edema or pain of the lower extremities. GASTROINTESTINAL: Dysphagia, nausea, vomiting, diarrhea, abdominal pain, hematemesis, melena, or hematochezia. SKIN: Denies abnormal lesions or rashes. CENTRAL NERVOUS SYSTEM: No dizziness, headache, diplopia or syncopal episodes. Remaining systems were reviewed with the patient, they were noted all negative. PAST MEDICAL HISTORY: 1. Noted with esophageal stricture and aspiration pneumonia, which was managed in 2017. 2. History of chronic moderate obesity. 3. Type 2 diabetes mellitus. 4. Hyperlipidemia. 5. Essential hypertension. 6. Hypothyroidism. 7. Migrainous headache. 8. History of Batres-Michoacano syndrome. 9. Vitamin D deficiency. 10. Intervertebral disk disease. 11. History of chronic pancreatitis. PAST SURGICAL HISTORY: Reported several that include: 1. Appendectomy. 2. . [place], [place] REPORT OF CONSULTATION [id number] UNIT #: [id number] ROOM: 522 DOCTOR: MCKENNA SOLIS MD,JENN BIRTHDATE: [birth year] 3. Cholecystectomy. 4. Ear surgery. 5. Exploratory laparotomy. 6. Foot surgery. 7. Arthroscopy of both knees. 8. Cardiac catheterization. 9. Complete hysterectomy. 10. Partial thyroidectomy. 11. Parathyroidectomy. 12. Tonsillectomy. SOCIAL HISTORY: The patient is and lives at home. Denies history of alcohol use or illicit drug use. She has been noted tobacco use, a pack of cigarettes per day, started at a younger age and discontinued approximately in year 1999. FAMILY HISTORY: The patient's father at younger age related to acute myocardial infarction. Mother at age 65 with complication of bowel obstruction. HOME MEDICATIONS: Listed are reported as use of aspirin, Lipitor, Bumex, captopril, vitamin D, doxycycline, corticosteroid Dosepak, glipizide, Mucinex, Tarceva insulin, levothyroxine, Robaxin, Topamax and trazodone. DRUG ALLERGIES: Reported allergies: 1. CODEINE. 2. LEVAQUIN. 3. LORAZEPAM. 4. ZOFRAN. 5. COMPAZINE. 6. VANCOMYCIN. PHYSICAL EXAMINATION: GENERAL: This is a 57-year-old white female currently noted comfortable at this time, resting on the bed without any acute distress at this morning of assessment. Height of 5 feet 4 inches, weight of 238 pounds, BMI 40. VITAL SIGNS: Normal temperature, respiratory rate 18-22, heart rate of 80-110, blood pressure 126/65 and 162/76. Pulse oxygen saturation patient was recorded as 96% saturation. Room air at this time 93% noted on admission on room air as well. HEENT: Moderately obese. Head was atraumatic. Decreased posterior pharyngeal space. CARDIOVASCULAR: S1, S2 is audible. LUNGS: The patient was noted with decreased breath sound in the lungs noted bilaterally with scattered wheezing. There were no crackles. ABDOMEN: Soft, obese, nontender. Bowel sounds present. EXTREMITIES: Without any acute edema. MUSCULOSKELETAL: The patient was noted without any acute deformities. CENTRAL NERVOUS SYSTEM: Cranial nerves 2-12 intact. SKIN: No lesions or rashes. [place], [place] REPORT OF CONSULTATION NAME: CHRIS ECHEVERRIA UNIT #: [id number] ROOM: 522 DOCTOR: MCKENNA SOLIS MD,JENN BIRTHDATE: [birth year] LABORATORY DATA: On admission, the lactic acid on admission on the in the Emergency Room was normal. CBC on 08/17 the Emergency Room was noted, platelet count 101, otherwise normal CBC and CMP. On 08/17 for this on admission, BUN 30, creatinine 1.4, glucose 465. AST was 40. CMP that was done on the , glucophage 93, BUN 37, creatinine 1.51. Glucose of 135. Blood culture, which were noted on admission noted no bacterial growth. From 08/17/2018 BUN and creatinine today were noted and creatinine was normal. BUN 30, and glucose 221. Albumin of 2.7. Culture of the sputum for this morning, many white blood cells, moderate gram-positive cocci in chains and clusters. IMPRESSION: 1. The patient will be currently admitted to the hospital noted with signs and symptoms of acute bronchitis and wheezing related to possibility of acute exacerbation of bronchial asthma and acute bronchitis, resulting in wheezing with hyperreactivity of the airways. There was no formal diagnosis of COPD, bronchial asthma reported by the patient. 2. History of esophageal stricture past pneumonia secondary to that. 3. Severely uncontrolled diabetes which were noted worsening with use of corticosteroid, patient was prescribed prednisone 50 mg daily and blood glucose more than 600. 4. The patient with chronic morbid obesity with suspicion of obstructive sleep apnea disorder. 5. Acute kidney injury secondary to intravascular volume depletion, prerenal azotemia secondary to hyperglycemia and glucosuria. Resolution of the acute kidney noted with IV hydration. 6. Thrombocytopenia. PLAN OF MANAGEMENT: Dose of Solu-Medrol at this time will be continued for the next 24 hours of the same dose if the wheezing continued to improve. The dose will be further decreased precipitously. Bronchodilator to be continued. Continue the current antibiotics as well, sputum for Gram stain and culture. Usual care, other supportive therapy, plan of management, care plan patient to be ordered based on the progression of illness. The admission labs for this patient were also noted with thrombocytopenia that remains persistent. The etiology remains unclear, may be further investigation need to be done if the thrombocytopenia remains persistent as an outpatient. The patient was also ordered respiratory viral panel to assess for viral cough with current bronchitis and exacerbation of bronchial asthma. [place], [place] REPORT OF CONSULTATION NAME: CHRIS ECHEVERRIA UNIT #: [id number] ROOM: 522 DOCTOR: JENN VALDEZ MD BIRTHDATE: [birth year] JENN ANDRES MD CM:CONSTR:REPORT OF CONSULTATION 1435 08/30/18 1013 interface
[~2018-08-18 10:47] MED LIST changes: +DOXYCYCLINE100 M3 PO; +MUCINEX1200 M1 PO; +PREDNISONE50 MG PO
[2018-08-18 10:49] VITALS: BP 133/78
[2018-08-18 11:37] LABS: BASO % 0.2 % (0.0-1.0); HEMATOCRIT 41.9 % (37.0-47.0); HEMOGLOBIN 14.2 g/dl (12.0-16.0); LYMPH # 1.4 10*3/uL (1.3-4.4); LYMPH % 13.5 % (27.0-41.0); MEAN CELL VOLUME 88.4 fl (81.0-99.0); MEAN CORPUSCULAR HGB CONC 33.9 g/dl (33.0-37.0); MEAN PLATELET VOLUME 12.6 fl (9.6-12.3); MONO # 0.7 10*3/uL (0.1-1.0); MONO % 6.8 % (3.0-9.0); NEUT # 8.2 10*3/uL (2.3-7.9); NEUT % 79.2 % (47.0-73.0); PLATELET COUNT AUTOMATED 120 10*3/uL (130-400); RED BLOOD COUNT 4.74 10*6/uL (4.10-5.10); RED CELL DISTRI WIDTH 12.5 % (0-14.5); WHITE BLOOD COUNT 10.3 10*3/uL (4.8-10.8)
[2018-08-18 11:46] LABS: ACT PARTIAL THROMBO TIME 20.1 SECONDS (20.8-31.5)
[2018-08-18 11:53] LABS: ALBUMIN 3.5 gm/dl (3.1-4.5); ALKALINE PHOSPHATASE 150 U/L (45-117); BUN 37 mg/dl (7-24); CHLORIDE 95 mmol/L (98-107); CREATININE 1.51 mg/dL (0.55-1.02); LIPASE 225 U/L (73-393); POTASSIUM 4.3 mmol/L (3.5-5.1); SGOT/AST 30 IU/L (3-35); SGPT/ALT 44 U/L (12-78); SODIUM 135 mmol/L (136-145); TOTAL PROTEIN 7.8 gm/dL (6.4-8.2)
[2018-08-18 11:56] LABS: BILIRUBIN NEGATIVE (NEGATIVE); BLOOD NEGATIVE (NEGATIVE); CLARITY CLEAR (CLEAR); COLOR YELLOW (YELLOW); GLUCOSE 3+ (NEGATIVE); KETONE NEGATIVE (NEGATIVE); LEUKO ESTERASE NEGATIVE (NEGATIVE); NITRITE NEGATIVE (NEGATIVE); PH 5.5 (5.0-9.0); UROBILINOGEN 0.2 E.U./dl (0.2-1.0)
[2018-08-18 11:57] LABS: TROPONIN I < 0.015 ng/ml (<0.045)
[2018-08-18 12:19] VITALS: BP 111/64
[2018-08-18 13:34] VITALS: BP 129/68
[2018-08-18 13:40] VITALS: BP 129/68
[2018-08-18 16:00] VITALS: BP 127/56
[2018-08-18 20:00] VITALS: BP 126/65
[2018-08-19] VITALS: BP 106/50
[2018-08-19 07:02] LABS: BASO % 0.3 % (0.0-1.0); EOS % 0.1 % (1.0-4.0); LYMPH # 1.8 10*3/uL (1.3-4.4); LYMPH % 23.8 % (27.0-41.0); MEAN CORPUSCULAR HGB 30.5 pg (27.0-31.0); MEAN CORPUSCULAR HGB CONC 33.3 g/dl (33.0-37.0); MEAN PLATELET VOLUME 12.4 fl (9.6-12.3); MONO # 0.5 10*3/uL (0.1-1.0); MONO % 6.5 % (3.0-9.0); NEUT # 5.3 10*3/uL (2.3-7.9); NEUT % 68.9 % (47.0-73.0); PLATELET COUNT AUTOMATED 102 10*3/uL (130-400); RED BLOOD COUNT 3.77 10*6/uL (4.10-5.10); RED CELL DISTRI WIDTH 12.9 % (0-14.5); WHITE BLOOD COUNT 7.7 10*3/uL (4.8-10.8)
[2018-08-19 07:07] LABS: HEMATOCRIT 34.5 % (37.0-47.0); HEMOGLOBIN 11.5 g/dl (12.0-16.0); MEAN CELL VOLUME 91.5 fl (81.0-99.0)
[2018-08-19 07:11] LABS: ACT PARTIAL THROMBO TIME 20.4 SECONDS (20.8-31.5)
[2018-08-19 07:37] LABS: ALBUMIN 2.7 gm/dl (3.1-4.5); ALKALINE PHOSPHATASE 105 U/L (45-117); BUN 30 mg/dl (7-24); CHLORIDE 107 mmol/L (98-107); CHOLESTEROL 132 mg/dL (<200); CREATININE 0.95 mg/dL (0.55-1.02); HDL CHOLESTEROL 32 mg/dl (40-60); LDL CHOLESTEROL 42 mg/dL (9-159); PHOSPHOROUS 3.9 mg/dL (2.5-4.9); POTASSIUM 4.2 mmol/L (3.5-5.1); SGOT/AST 25 IU/L (3-35); SGPT/ALT 33 U/L (12-78); SODIUM 139 mmol/L (136-145); TOTAL PROTEIN 6.1 gm/dL (6.4-8.2); TRIGLYCERIDES 291 mg/dl (<150); VLDL CHOLESTEROL 58 mg/dL (6-40)
[2018-08-19 07:38] LABS: FREE T4 1.37 ng/dl (0.76-1.46)
[2018-08-19 08:15] VITALS: BP 110/70
[2018-08-19] MEDS ORDERED: LYRICA200 M1 PO (09:17)
[2018-08-19 11:33] LABS: VITAMIN D, 25-HYDROXY 20.2 ng/mL (30-100)
[2018-08-19 12:00] VITALS: BP 125/63
[2018-08-19 16:00] VITALS: BP 111/53
[2018-08-19 20:00] VITALS: BP 101/50
[2018-08-20] VITALS: BP 112/47
[2018-08-20 08:00] VITALS: BP 132/72
[2018-08-20 12:00] VITALS: BP 130/66
[2018-08-20 16:00] VITALS: BP 111/60
[2018-08-20 20:00] VITALS: BP 101/46
[2018-08-21] VITALS: BP 131/66
[2018-08-21 08:00] VITALS: BP 112/64
[2018-08-21] MEDS ORDERED: LISINOPRIL5 MG PO (10:08)
[2018-08-21] MEDS ORDERED: PREDNISONE10 MG PO (10:08)
[2018-08-21] MEDS ORDERED: AVPAK AZITHROM250 M1 PO (10:08)
[2018-08-22 03:08] LABS: ADENOVIRUS Negative (Negative); INFLUENZA A Negative (Negative); INFLUENZA B Negative (Negative); METAPNEUMOVIRUS Negative (Negative); PARAINFLUENZA 1 Negative (Negative); PARAINFLUENZA 2 Negative (Negative); PARAINFLUENZA 3 Negative (Negative); RHINOVIRUS Negative (Negative); RSV A Negative (Negative); RSV B Negative (Negative)
== END 2018-08-21 11:41 | disposition home or self-care (01) | DRG 682 ==
LOC: ED 10:47 → EDHOLD 12:47 → 5E 12:47
PROVIDERS: Emergency Medicine; Internal Medicine; Internal Medicine Critical Care Medicine
DX: N17.0 Acute kidney failure with tubular necrosis (principal); J18.9 Pneumonia, unspecified organism; J44.0 Chronic obstructive pulmonary disease with (acute) lower respiratory infection; J44.1 Chronic obstructive pulmonary disease with (acute) exacerbation; E44.1 Mild protein-calorie malnutrition; E87.2 Acidosis; E87.1 Hypo-osmolality and hyponatremia; J45.901 Unspecified asthma with (acute) exacerbation; L51.1 Stevens-Johnson syndrome; Z68.41 Body mass index [BMI] 40.0-44.9, adult; J20.9 Acute bronchitis, unspecified; E86.0 Dehydration; D69.6 Thrombocytopenia, unspecified; E66.01 Morbid (severe) obesity due to excess calories; D72.810 Lymphocytopenia; I10 Essential (primary) hypertension; E87.8 Other disorders of electrolyte and fluid balance, not elsewhere classified; E78.5 Hyperlipidemia, unspecified; E11.65 Type 2 diabetes mellitus with hyperglycemia; M50.30 Other cervical disc degeneration, unspecified cervical region; G43.909 Migraine, unspecified, not intractable, without status migrainosus; E03.9 Hypothyroidism, unspecified; Z79.899 Other long term (current) drug therapy; Z90.49 Acquired absence of other specified parts of digestive tract; Z98.891 History of uterine scar from previous surgery; Z90.710 Acquired absence of both cervix and uterus; Z87.891 Personal history of nicotine dependence; Z79.4 Long term (current) use of insulin; Z82.49 Family history of ischemic heart disease and other diseases of the circulatory system; Z88.5 Allergy status to narcotic agent; Z88.1 Allergy status to other antibiotic agents; Z88.8 Allergy status to other drugs, medicaments and biological substances; Z79.82 Long term (current) use of aspirin; Z79.2 Long term (current) use of antibiotics

== ENCOUNTER 2018-11-17 11:34 | Inpatient (IN) | payer BC ==
[~2018-11-17] VITALS: Ht 162.5 cm; Wt 108.7 kg
--- NOTE | ~2018-11-17 | O ---
[place], [place] OPERATIVE NOTE NAME: CHRIS [facility]HEVERRIA [facility]: [id number] UNIT #: [id number] ROOM: 520 DOCTOR: KITTY PUGH MD BIRTHDATE: [birth year] DOS: 11/20/2018 GASTROENDOSCOPIC REPORT HISTORY OF PRESENT ILLNESS: A 58-year-old patient who was presented with chief complaint of left lower quadrant pain, undergoing investigation. The patient previous endoscopic and consultation reports on the chart. PROCEDURE: Today's procedure part of investigation is colonoscopy. PREMEDICATION: Propofol. SCOPE: Olympus forward-viewing colonoscope 10L video. REPORT: After putting the patient in left lateral position and application of the lubricant to the scope, the scope was introduced. Thereafter, under direct visualization, advanced through the length of colon without difficulty. Colon mucosa and vascularity carefully examined. Base of the cecum explored, appendiceal orifice identified, and ileocecal valve defined. Photographic series for documentation obtained. The patient was gradually extubated and tolerated the procedure well. IMPRESSION: Normal colonoscopic examination. Abdominal pain and left lower quadrant pain that she is experiencing is most likely secondary to extreme obesity of the abdomen and large lower abdominal apron. PLAN AND DISCUSSION: We are going to keep her on a high fiber diet, low fat diet. Activity as tolerated. Supportive management as much as we can keep her pain management with a softer approach would be more beneficial and clinical reassessment. Follow-up colonoscopy in 10 years unless there are symptoms in which case follow-up should be as needed. KITTY PUGH MD CM:OPRECORD:OPERATIVE NOTE 1333 [id number] KITTY PUGH MD 01/14/19 1435 interface
--- NOTE | ~2018-11-17 | CON ---
[place], [place] REPORT OF CONSULTATION NAME: [id number] UNIT #: [id number] ROOM: 520 DOCTOR: LEXY JACKSONKITTY BIRTHDATE: [birth year] DOS: 11/17/2018 GASTROENDOSCOPIC CONSULTATION REPORT HISTORY OF PRESENT ILLNESS: This patient is a 58-year-old who has presented with nausea, vomiting and also chronic left lower quadrant pain. The patient had to be admitted through the Emergency Room. A basic studies had to be done on her including a CT scan of the abdomen and pelvis, hepatic steatosis, prior cholecystectomy was noticed thickening of the wall of the distal esophagus again demonstrated the hepatic steatosis seen. Kidneys were normal. No free air. Pelvic; there is no bowel pathology. Stool throughout the colon. Uterus is absent. She had a panel of blood work done. Urinalysis 3+ glucose. Lactic acid 1.9. CBC differential, H and H of 13 and 43. INR 0.9. Comprehensive metabolic panel: Glucose 311, BUN and creatinine 15 and 1.0. Urinalysis benign. Magnesium 1.0. C-reactive protein elevated. Troponin within normal limits. CBC differential again within normal limits. Comprehensive metabolic panel again GFR greater than 60. Triglyceride 345. Elevated cholesterol normal. Total protein within normal limits. PAST MEDICAL HISTORY: Associated with obesity, diabetes, COPD, history of old pancreatitis, migraine, cephalalgia, [place] history, hypothyroidism, and systemic hypertension. PAST SURGICAL HISTORY: Exploratory laparotomy, appendectomy, cholecystectomy, , hysterectomy, parathyroidectomy, partial thyroidectomy, and tonsillectomy. SOCIAL HISTORY: Past smoker. Nonalcohol consumer. FAMILY HISTORY: Noncontributory. ALLERGIES: MULTIPLE MEDICATIONS INCLUDING ATIVAN, LEVAQUIN, AVELOX, ZOFRAN, COMPAZINE, VANCOMYCIN. MEDICATIONS AT HOME: Reviewed. REVIEW OF SYSTEMS: HEENT: Denies double vision, blurred vision. RESPIRATORY: Denies shortness of breath. CARDIOVASCULAR: Denies chest pain. DIGESTIVE SYSTEM: Epigastric distress, nausea and vomiting, status post responding to antiemetics, left lower quadrant pain. PHYSICAL EXAMINATION: VITAL SIGNS: Stable. HEENT: Head normocephalic, nontraumatic. Mouth and buccal mucosa benign. NECK: Supple, no thyromegaly, no cervical lymphadenopathy. CHEST: Symmetric anatomy, equal expansion. No wheeze, no rhonchi. HEART: Normal sinus rhythm, no gallop, no murmur. ABDOMEN: Soft, obese, no hepato-organomegaly. Bowel sounds present. [place], [place] REPORT OF CONSULTATION NAME: CHRIS ECHEVERRIA UNIT #: [id number] ROOM: [facility] DOCTOR: KITTY PUGH MD BIRTHDATE: [birth year] Nonspecific tenderness in the left lower quadrant. EXTREMITIES: 1+ pedal edema. NEUROLOGIC: Alert, oriented to time, place and person. LABORATORY DATA: Reviewed. Records reviewed. PLAN AND DISCUSSION: Normal renal function noted. Normal electrolyte, hypertriglyceridemia was noticed. Initial comprehensive metabolic panel as well have shown lipase that is normal. Her labs and records have been reviewed. Her medication reviewed. KITTY PUGH MD CM:CONSTR:REPORT OF CONSULTATION 0949 12/05/18 1548 interface
--- NOTE | ~2018-11-17 | EKG ---
[place], [place] ELECTROCARDIOGRAM REPORT NAME: SHILPA ECHEVERRIA UNIT #: [id number] ROOM: 520 DOCTOR: DANIKA DRAFT REPORT BIRTHDATE: [birth year] [facility] Test Date: 2018-11-17 Test Time: 12:19:58 Pat Name: SHILPA ECHEVERRIA Department: Room: [facility] Gender: F Armament Mechanic: Shilpa Avery : 1960 Requested By: APOORVA BAKER Order Number: [id number] Reading MD: Jaiden Hall MD Measurements Intervals [place] Rate: 87 P: 44 NM: 147 QRS: 44 QRSD: 103 T: 19 QT: 377 QTc: 454 Interpretive Statements Sinus rhythm Low voltage, precordial leads Consider anterior infarct Compared to ECG 08/18/2018 11:14:26 Electronically Signed On 11-22-2018 10:00:06 PST by Jaiden Hall MD CM:EKGRPT:ELECTROCARDIOGRAM REPORT 1219 1000 APOORVA ENRIQUEZ DRAFT REPORT APOORVA BAKER DO
--- NOTE | ~2018-11-17 | O ---
[place], [place] OPERATIVE NOTE NAME: [facility]RIA [facility] [id number] UNIT #: [id number] ROOM: 520 DOCTOR: LEXY JACKSON,KITTY BIRTHDATE: [birth year] DOS: 11/18/2018 INDICATION: The patient presented with multiple complaints, among which was nausea, abnormal CT scan of the esophagus with thickening, left lower quadrant pain, nausea, which has been responding to antiemetics. Dyspepsia, she is responding to PPI. PROCEDURE: Today's procedure part of investigation is panendoscopy plus biopsy of distal esophagus plus biopsy of gastric pouch and antrum. PREMEDICATION: Propofol. SCOPE: Olympus forward-viewing gastroscope Q10 video. REPORT: After putting the patient in left lateral position and application of lubricant to the scope, the scope was introduced. Thereafter, under direct visualization, advanced through the length of esophagus without difficulty. I did not see any distal esophageal thickening. However, distal esophagus was biopsied due to chronic complaints and reading of distal esophageal thickening. There was no intraluminal pathology. Gastric pouch was entered, watermelon gastritis seen. Antral biopsy obtained. Duodenal bulb, second and third part within normal limit. The patient extubated, tolerated the procedure well. IMPRESSION: Watermelon gastritis, status post biopsy. Normal distal esophagus, status post biopsy due to the repeated reading of abnormal distal esophageal thickening. PLAN AND DISCUSSION: Protonix 40 mg daily. Organizing a colonoscopy for her on Sunday morning for her left lower quadrant pain and clinical reassessment. KITTY PUGH MD CM:OPRECORD:OPERATIVE NOTE 1020 1128 KITTY PUGH MD 11/18/18 1128 interface
[~2018-11-17 11:34] MED LIST changes: +AVPAK AZITHROM250 M1 PO; +LISINOPRIL5 MG PO; +LYRICA200 M1 PO
[2018-11-17 11:35] VITALS: BP 133/76
[2018-11-17 12:57] LABS: BILIRUBIN NEGATIVE (NEGATIVE); BLOOD NEGATIVE (NEGATIVE); CLARITY CLEAR (CLEAR); COLOR STRAW (YELLOW); GLUCOSE 3+ (NEGATIVE); KETONE NEGATIVE (NEGATIVE); LEUKO ESTERASE NEGATIVE (NEGATIVE); NITRITE NEGATIVE (NEGATIVE); PH 5.5 (5.0-9.0); SPECIFIC GRAVITY <= 1.005 (1.005-1.030); UROBILINOGEN 0.2 E.U./dl (0.2-1.0)
[2018-11-17 13:06] LABS: BASO % 0.4 % (0.0-1.0); EOS # 0.1 10*3/uL (0.0-0.4); HEMATOCRIT 42.9 % (37.0-47.0); HEMOGLOBIN 13.9 g/dl (12.0-16.0); LYMPH # 1.7 10*3/uL (1.3-4.4); LYMPH % 30.8 % (27.0-41.0); MEAN CELL VOLUME 89.7 fl (81.0-99.0); MEAN CORPUSCULAR HGB 29.1 pg (27.0-31.0); MEAN CORPUSCULAR HGB CONC 32.4 g/dl (33.0-37.0); MONO # 0.6 10*3/uL (0.1-1.0); MONO % 10.1 % (3.0-9.0); NEUT # 3.2 10*3/uL (2.3-7.9); NEUT % 56.5 % (47.0-73.0); PLATELET COUNT AUTOMATED 99 10*3/uL (130-400); RED BLOOD COUNT 4.78 10*6/uL (4.10-5.10); WHITE BLOOD COUNT 5.6 10*3/uL (4.8-10.8)
[2018-11-17 13:06] LABS: BACTERIA TRACE; RBC 0-2 rbc/hpf (0-2)
[2018-11-17 13:15] LABS: ACT PARTIAL THROMBO TIME 25.5 SECONDS (20.8-31.5); INTERNATIONAL NORM RATIO 0.9 (2.0-3.5)
[2018-11-17 13:29] LABS: ALBUMIN 3.4 gm/dl (3.1-4.5); ALKALINE PHOSPHATASE 153 U/L (45-117); BUN 15 mg/dl (7-24); CHLORIDE 100 mmol/L (98-107); CREATININE 1.04 mg/dL (0.55-1.02); LIPASE 195 U/L (73-393); POTASSIUM 4.1 mmol/L (3.5-5.1); SGOT/AST 30 IU/L (3-35); SGPT/ALT 40 U/L (12-78); SODIUM 137 mmol/L (136-145); TOTAL PROTEIN 7.6 gm/dL (6.4-8.2)
[2018-11-17 13:33] LABS: TROPONIN I < 0.015 ng/ml (<0.045)
[2018-11-17 16:30] VITALS: BP 120/74
[2018-11-17 16:45] VITALS: BP 147/80
[2018-11-17] MEDS ORDERED: LIPITOR80 MG PO (17:24)
[2018-11-17] MEDS ORDERED: BUTRANS1 EAC2 TD (17:26)
[2018-11-17] MEDS ORDERED: TOPAMAX100 M1 PO (17:27)
[2018-11-17 20:00] VITALS: BP 129/77
[2018-11-18] VITALS (9 sets, daily range): BP systolic 111–153; BP diastolic 51–85
[2018-11-18 06:23] LABS: BASO % 0.7 % (0.0-1.0); EOS # 0.2 10*3/uL (0.0-0.4); HEMATOCRIT 42.7 % (37.0-47.0); LYMPH % 33.6 % (27.0-41.0); MEAN CELL VOLUME 89.5 fl (81.0-99.0); MEAN CORPUSCULAR HGB 29.4 pg (27.0-31.0); MEAN CORPUSCULAR HGB CONC 32.8 g/dl (33.0-37.0); MEAN PLATELET VOLUME 11.8 fl (9.6-12.3); MONO # 0.6 10*3/uL (0.1-1.0); MONO % 9.8 % (3.0-9.0); NEUT # 3.2 10*3/uL (2.3-7.9); NEUT % 52.6 % (47.0-73.0); PLATELET COUNT AUTOMATED 95 10*3/uL (130-400); RED BLOOD COUNT 4.77 10*6/uL (4.10-5.10); RED CELL DISTRI WIDTH 13.1 % (0-14.5); WHITE BLOOD COUNT 6.1 10*3/uL (4.8-10.8)
[2018-11-18 07:06] LABS: ALBUMIN 3.1 gm/dl (3.1-4.5); BUN 13 mg/dl (7-24); CHLORIDE 103 mmol/L (98-107); CHOLESTEROL 155 mg/dL (<200); CREATININE 0.91 mg/dL (0.55-1.02); POTASSIUM 3.7 mmol/L (3.5-5.1); SGPT/ALT 40 U/L (12-78); SODIUM 141 mmol/L (136-145)
[2018-11-18 07:11] LABS: ALKALINE PHOSPHATASE 106 U/L (45-117); FREE T4 1.29 ng/dl (0.76-1.46); HDL CHOLESTEROL 34 mg/dl (40-60); LDL CHOLESTEROL 52 mg/dL (9-159); PHOSPHOROUS 3.9 mg/dL (2.5-4.9); SGOT/AST 37 IU/L (3-35); TOTAL PROTEIN 6.5 gm/dL (6.4-8.2); TRIGLYCERIDES 345 mg/dl (<150); VLDL CHOLESTEROL 69 mg/dL (6-40)
[2018-11-18 07:14] LABS: THYROID STIM HORMONE (HS) 0.691 uIU/ml (0.358-4.75)
[2018-11-18 09:12] LABS: VITAMIN D, 25-HYDROXY 31.2 ng/mL (30-100)
[2018-11-19] VITALS (7 sets, daily range): BP systolic 83–113; BP diastolic 43–62
[2018-11-20] VITALS (9 sets, daily range): BP systolic 100–127; BP diastolic 49–68
[2018-11-20 06:51] LABS: BUN 11 mg/dl (7-24); CHLORIDE 109 mmol/L (98-107); CREATININE 0.95 mg/dL (0.55-1.02); SODIUM 139 mmol/L (136-145)
[2018-11-20 06:52] LABS: POTASSIUM 4.4 mmol/L (3.5-5.1)
[2018-11-20 07:23] LABS: BASO % 0.3 % (0.0-1.0); EOS # 0.2 10*3/uL (0.0-0.4); EOS % 3.3 % (1.0-4.0); HEMATOCRIT 45.4 % (37.0-47.0); HEMOGLOBIN 14.9 g/dl (12.0-16.0); LYMPH # 1.6 10*3/uL (1.3-4.4); LYMPH % 26.4 % (27.0-41.0); MEAN CELL VOLUME 91.9 fl (81.0-99.0); MEAN CORPUSCULAR HGB 30.2 pg (27.0-31.0); MEAN CORPUSCULAR HGB CONC 32.8 g/dl (33.0-37.0); MEAN PLATELET VOLUME 12.1 fl (9.6-12.3); MONO # 0.6 10*3/uL (0.1-1.0); MONO % 10.1 % (3.0-9.0); NEUT # 3.7 10*3/uL (2.3-7.9); NEUT % 59.7 % (47.0-73.0); PLATELET COUNT AUTOMATED 95 10*3/uL (130-400); RED BLOOD COUNT 4.94 10*6/uL (4.10-5.10); RED CELL DISTRI WIDTH 13.4 % (0-14.5); WHITE BLOOD COUNT 6.1 10*3/uL (4.8-10.8)
[2018-11-21] VITALS: BP 108/64
[2018-11-21 12:00] VITALS: BP 111/56
[2019-03-04] MEDS ORDERED: FLONASE ALLERG9.9 ML NAS (00:10)
[2019-03-04] MEDS ORDERED: AUGMENTIN 875-875 MG PO (00:10)
[2019-03-04] MEDS ORDERED: CYCLOBENZAPRINE10 MG PO (00:10)
[2019-03-04] MEDS ORDERED: CLARITIN10 MG PO (00:10)
[2019-03-04] MEDS ORDERED: CLINDAMYCIN HC300 MG PO (00:20)
== END 2018-11-21 13:31 | disposition home or self-care (01) | DRG 392 ==
LOC: ED 11:34 → 5E 15:59 → EDHOLD 15:59 → 5E 16:12
PROVIDERS: Emergency Medicine; Internal Medicine; ADMIT Internal Medicine
PROC: 0DB58ZX Excision of Esophagus, Via Natural or Artificial Opening Endoscopic, Diagnostic (ICD-10-PCS; principal; 2018-11-18)
PROC: 0DB68ZX Excision of Stomach, Via Natural or Artificial Opening Endoscopic, Diagnostic (ICD-10-PCS; principal; 2018-11-18)
PROC: 0DJD8ZZ Inspection of Lower Intestinal Tract, Via Natural or Artificial Opening Endoscopic (ICD-10-PCS; 2018-11-20)
DX: K59.00 Constipation, unspecified (principal); E44.1 Mild protein-calorie malnutrition; Z68.41 Body mass index [BMI] 40.0-44.9, adult; K86.1 Other chronic pancreatitis; K29.70 Gastritis, unspecified, without bleeding; E66.9 Obesity, unspecified; I10 Essential (primary) hypertension; E89.0 Postprocedural hypothyroidism; G43.909 Migraine, unspecified, not intractable, without status migrainosus; E55.9 Vitamin D deficiency, unspecified; M50.30 Other cervical disc degeneration, unspecified cervical region; E11.65 Type 2 diabetes mellitus with hyperglycemia; J44.9 Chronic obstructive pulmonary disease, unspecified; D69.6 Thrombocytopenia, unspecified; E78.1 Pure hyperglyceridemia; R81 Glycosuria; K20.9 Esophagitis, unspecified; K76.0 Fatty (change of) liver, not elsewhere classified; Z79.4 Long term (current) use of insulin; Z90.49 Acquired absence of other specified parts of digestive tract; Z90.710 Acquired absence of both cervix and uterus; Z88.8 Allergy status to other drugs, medicaments and biological substances; Z88.1 Allergy status to other antibiotic agents; Z98.891 History of uterine scar from previous surgery; Z87.891 Personal history of nicotine dependence; Z82.49 Family history of ischemic heart disease and other diseases of the circulatory system; Z88.5 Allergy status to narcotic agent; Z79.82 Long term (current) use of aspirin; Z79.899 Other long term (current) drug therapy

== ENCOUNTER 2018-12-18 14:10 | Emergency (ER) | payer SELFPAY ==
[~2018-12-18] VITALS: Wt 100.7 kg
--- NOTE | ~2018-12-18 | EKG ---
[place], [place] ELECTROCARDIOGRAM REPORT NAME: CHRIS ECHEVERRIA UNIT #: [id number] ROOM: DOCTOR: EPIPHANY DRAFT REPORT BIRTHDATE: [birth year] [facility] Test Date: 2018-12-18 Test Time: 15:14:45 Pat Name: CHRIS ECHEVERRIA Department: ER Room: Gender: F Development Coordinator: EKG.NE : 1960 Requested By: BERNA ROCA PA-C Order Number: [id number] Reading MD: Antonio Aparicio MD Measurements Intervals [place] Rate: 91 P: 12 [place]: 157 QRS: 53 QRSD: 112 T: 30 QT: 385 QTc: 474 Interpretive Statements Sinus rhythm Probable left atrial enlargement Low voltage, precordial leads Consider anterior infarct Compared to ECG 11/17/2018 12:19:58 No significant changes Electronically Signed On 12-21-2018 7:00:25 PDT by Antonio Aparicio MD CM:EKGRPT:ELECTROCARDIOGRAM REPORT 1514 0700 BERNA ROCA PA-C EPIPHANY DRAFT REPORT BERNA ROCA PA-C
[~2018-12-18 14:10] MED LIST changes: +BUTRANS1 EAC2 TD; +LIPITOR80 MG PO; +TOPAMAX100 M1 PO
[2018-12-18 15:02] LABS: BASO % 0.5 % (0.0-1.0); HEMATOCRIT 44.6 % (37.0-47.0); HEMOGLOBIN 14.9 g/dl (12.0-16.0); LYMPH # 0.9 10*3/uL (1.3-4.4); LYMPH % 23.8 % (27.0-41.0); MEAN CELL VOLUME 89.2 fl (81.0-99.0); MEAN CORPUSCULAR HGB 29.8 pg (27.0-31.0); MEAN CORPUSCULAR HGB CONC 33.4 g/dl (33.0-37.0); MEAN PLATELET VOLUME 11.9 fl (9.6-12.3); MONO # 0.5 10*3/uL (0.1-1.0); MONO % 14.1 % (3.0-9.0); NEUT # 2.3 10*3/uL (2.3-7.9); NEUT % 60.3 % (47.0-73.0); PLATELET COUNT AUTOMATED 92 10*3/uL (130-400); RED CELL DISTRI WIDTH 13.2 % (0-14.5); WHITE BLOOD COUNT 3.8 10*3/uL (4.8-10.8)
[2018-12-18 15:19] LABS: ACETAMINOPHEN (TYLENOL) < 5.0 ug/ml (10-30); ALBUMIN 3.3 gm/dl (3.1-4.5); ALKALINE PHOSPHATASE 101 U/L (45-117); BUN 16 mg/dl (7-24); CHLORIDE 105 mmol/L (98-107); CREATININE 0.91 mg/dL (0.55-1.02); POTASSIUM 4.1 mmol/L (3.5-5.1); SGOT/AST 39 IU/L (3-35); SGPT/ALT 54 U/L (12-78); SODIUM 137 mmol/L (136-145); TOTAL PROTEIN 7.3 gm/dL (6.4-8.2); TROPONIN I < 0.015 ng/ml (<0.045)
[2018-12-18 15:26] LABS: ETHYL ALCOHOL < 3.0 mg/dl (<3)
[2019-03-04] MEDS ORDERED: AUGMENTIN 875-875 MG PO (00:10)
[2019-03-04] MEDS ORDERED: CYCLOBENZAPRINE10 MG PO (00:10)
[2019-03-04] MEDS ORDERED: CLARITIN10 MG PO (00:10)
[2019-03-04] MEDS ORDERED: FLONASE ALLERG9.9 ML NAS (00:10)
[2019-03-04] MEDS ORDERED: CLINDAMYCIN HC300 MG PO (00:20)
== END 2018-12-18 16:48 | disposition home or self-care (01) ==
LOC: ED 14:10
PROVIDERS: Physician Assistant
DX: F32.9 Major depressive disorder, single episode, unspecified (principal); Z88.5 Allergy status to narcotic agent; Z88.1 Allergy status to other antibiotic agents; Z88.8 Allergy status to other drugs, medicaments and biological substances; Z79.899 Other long term (current) drug therapy; Z79.82 Long term (current) use of aspirin; Z90.49 Acquired absence of other specified parts of digestive tract; Z90.710 Acquired absence of both cervix and uterus; Z87.891 Personal history of nicotine dependence

== ENCOUNTER 2019-01-10 09:32 | Emergency (ER) | payer OTHER ==
[~2019-01-10] VITALS: Ht 162.5 cm; Wt 92.5 kg
[2019-01-10 10:08] LABS: BILIRUBIN 2+ (NEGATIVE); BLOOD 3+ (NEGATIVE); CLARITY TURBID (CLEAR); COLOR RED (YELLOW); GLUCOSE NEGATIVE (NEGATIVE); KETONE TRACE (NEGATIVE); NITRITE POSITIVE (NEGATIVE); PH 6.5 (5.0-9.0)
[2019-01-10 10:14] LABS: LEUKO ESTERASE 3+ (NEGATIVE)
[2019-01-10 10:17] LABS: BACTERIA 2+; EPITHELIAL CELLS 20-30; RBC TNTC rbc/hpf (0-2); WBC TNTC wbc/hpf (0-5)
[2019-01-10] MEDS ORDERED: PYRIDIUM200 M1 PO (10:23)
[2019-01-10] MEDS ORDERED: SEPTDS PO (10:23)
[2019-03-04] MEDS ORDERED: CLARITIN10 MG PO (00:10)
[2019-03-04] MEDS ORDERED: AUGMENTIN 875-875 MG PO (00:10)
[2019-03-04] MEDS ORDERED: CYCLOBENZAPRINE10 MG PO (00:10)
[2019-03-04] MEDS ORDERED: FLONASE ALLERG9.9 ML NAS (00:10)
[2019-03-04] MEDS ORDERED: CLINDAMYCIN HC300 MG PO (00:20)
== END 2019-01-10 10:27 | disposition home or self-care (01) ==
LOC: ED 09:32
PROVIDERS: Physician Assistant
DX: N39.0 Urinary tract infection, site not specified (principal); Z88.5 Allergy status to narcotic agent; Z88.1 Allergy status to other antibiotic agents; Z88.8 Allergy status to other drugs, medicaments and biological substances; Z79.899 Other long term (current) drug therapy; Z79.84 Long term (current) use of oral hypoglycemic drugs; Z79.82 Long term (current) use of aspirin; Z79.4 Long term (current) use of insulin; Z90.49 Acquired absence of other specified parts of digestive tract; Z90.710 Acquired absence of both cervix and uterus; Z87.891 Personal history of nicotine dependence

== ENCOUNTER 2019-01-19 05:27 | Emergency (ER) | payer OTHER ==
[~2019-01-19] VITALS: Ht 162.5 cm; Wt 93.9 kg
[~2019-01-19 05:27] MED LIST changes: +PYRIDIUM200 M1 PO; +SEPTDS PO
[2019-03-04] MEDS ORDERED: CYCLOBENZAPRINE10 MG PO (00:10)
[2019-03-04] MEDS ORDERED: AUGMENTIN 875-875 MG PO (00:10)
[2019-03-04] MEDS ORDERED: CLARITIN10 MG PO (00:10)
[2019-03-04] MEDS ORDERED: FLONASE ALLERG9.9 ML NAS (00:10)
[2019-03-04] MEDS ORDERED: CLINDAMYCIN HC300 MG PO (00:20)
== END 2019-01-19 07:05 | disposition home or self-care (01) ==
LOC: ED 05:27
DX: S20.212A Contusion of left front wall of thorax, initial encounter (principal); E11.9 Type 2 diabetes mellitus without complications; J44.9 Chronic obstructive pulmonary disease, unspecified; I10 Essential (primary) hypertension; G43.909 Migraine, unspecified, not intractable, without status migrainosus; E66.9 Obesity, unspecified; Z88.1 Allergy status to other antibiotic agents; Z88.6 Allergy status to analgesic agent; Z88.8 Allergy status to other drugs, medicaments and biological substances; Z79.899 Other long term (current) drug therapy; Z79.82 Long term (current) use of aspirin; Z68.39 Body mass index [BMI] 39.0-39.9, adult; Z87.891 Personal history of nicotine dependence; W01.198A Fall on same level from slipping, tripping and stumbling with subsequent striking against other object, initial encounter; Y93.89 Activity, other specified; Y92.89 Other specified places as the place of occurrence of the external cause; Y99.8 Other external cause status

== ENCOUNTER → 2019-02-04 | Outpatient (CLI) | payer OTHER ==
[~2019-02-04] MED LIST changes: +AUGMENTIN 875-875 MG PO; +CLINDAMYCIN HC300 MG PO; +CYCLOBENZAPRINE10 MG PO; +Carafate1 GM/10 ML PO; +FLUVOXAMINE50 MG PO; +PANTOPRAZOLE SO40 MG PO; +SYNTHROID,LEV125 MCG PO
--- NOTE | 2019-02-04 09:44 | NUR ---
0942- [facility] ACCESSED WITH NON-CORING NEEDLE AFTER CLEANSING WITH CHLORAPREP. PROMPT BLOOD RETURN OBTAINED AND PORT FLUSHED PER POLICY. NON-CORING NEEDLE WITHDRAWN INTACT AND BANDAID APPLIED TO SITE.
== END | disposition home or self-care (01) ==
LOC: MEDIPORT 09:18
DX: Z45.2 Encounter for adjustment and management of vascular access device (principal); J44.1 Chronic obstructive pulmonary disease with (acute) exacerbation

== ENCOUNTER 2019-02-15 15:04 | Emergency (ER) | payer OTHER ==
[~2019-02-15] VITALS: Ht 162.5 cm; Wt 93.4 kg
[~2019-02-15 15:04] MED LIST changes: -AUGMENTIN 875-875 MG PO; -CLINDAMYCIN HC300 MG PO; -CYCLOBENZAPRINE10 MG PO; -Carafate1 GM/10 ML PO; -FLUVOXAMINE50 MG PO; -PANTOPRAZOLE SO40 MG PO; -SYNTHROID,LEV125 MCG PO
[2019-02-15 15:39] LABS: BASO # 0.1 10*3/uL (0.0-0.1); BASO % 0.6 % (0.0-1.0); EOS # 0.1 10*3/uL (0.0-0.4); EOS % 1.4 % (1.0-4.0); HEMATOCRIT 41.7 % (37.0-47.0); HEMOGLOBIN 13.5 g/dl (12.0-16.0); LYMPH # 2.2 10*3/uL (1.3-4.4); MEAN CELL VOLUME 96.3 fl (81.0-99.0); MEAN CORPUSCULAR HGB 31.2 pg (27.0-31.0); MEAN CORPUSCULAR HGB CONC 32.4 g/dl (33.0-37.0); MEAN PLATELET VOLUME 11.7 fl (9.6-12.3); MONO # 0.8 10*3/uL (0.1-1.0); MONO % 9.4 % (3.0-9.0); NEUT # 5.6 10*3/uL (2.3-7.9); NEUT % 63.5 % (47.0-73.0); PLATELET COUNT AUTOMATED 136 10*3/uL (130-400); RED BLOOD COUNT 4.33 10*6/uL (4.10-5.10); RED CELL DISTRI WIDTH 17.6 % (0-14.5); WHITE BLOOD COUNT 8.8 10*3/uL (4.8-10.8)
[2019-02-15 15:58] LABS: ALBUMIN 3.2 gm/dl (3.1-4.5); ALKALINE PHOSPHATASE 117 U/L (45-117); BUN 19 mg/dl (7-24); CHLORIDE 105 mmol/L (98-107); CREATININE 1.41 mg/dL (0.55-1.02); POTASSIUM 4.1 mmol/L (3.5-5.1); SGOT/AST 20 IU/L (3-35); SGPT/ALT 29 U/L (12-78); SODIUM 143 mmol/L (136-145); TOTAL PROTEIN 7.2 gm/dL (6.4-8.2)
[2019-02-15 16:01] LABS: TROPONIN I < 0.015 ng/ml (<0.045)
[2019-03-04] MEDS ORDERED: CLARITIN10 MG PO (00:10)
[2019-03-04] MEDS ORDERED: AUGMENTIN 875-875 MG PO (00:10)
[2019-03-04] MEDS ORDERED: FLONASE ALLERG9.9 ML NAS (00:10)
[2019-03-04] MEDS ORDERED: CYCLOBENZAPRINE10 MG PO (00:10)
[2019-03-04] MEDS ORDERED: CLINDAMYCIN HC300 MG PO (00:20)
== END 2019-02-15 18:50 | disposition home or self-care (01) ==
LOC: ED 15:04
PROVIDERS: Registered Nurse
DX: R42 Dizziness and giddiness (principal); E86.0 Dehydration; M54.2 Cervicalgia; E11.9 Type 2 diabetes mellitus without complications; Z87.891 Personal history of nicotine dependence; Z79.899 Other long term (current) drug therapy; Z79.82 Long term (current) use of aspirin; Z88.1 Allergy status to other antibiotic agents; Z88.8 Allergy status to other drugs, medicaments and biological substances; Z88.6 Allergy status to analgesic agent

== ENCOUNTER → 2019-03-11 | Outpatient (CLI) | payer OTHER ==
[~2019-03-11] MED LIST changes: +AUGMENTIN 875-875 MG PO; +CLINDAMYCIN HC300 MG PO; +CYCLOBENZAPRINE10 MG PO; +Carafate1 GM/10 ML PO; +FLUVOXAMINE50 MG PO; +PANTOPRAZOLE SO40 MG PO; +SYNTHROID,LEV125 MCG PO
== END | disposition home or self-care (01) ==
LOC: MEDIPORT 12:00
DX: J44.1 Chronic obstructive pulmonary disease with (acute) exacerbation (principal)

== ENCOUNTER 2019-03-27 22:37 | Emergency (ER) | payer OTHER ==
[~2019-03-27] VITALS: Ht 162.5 cm; Wt 92.5 kg
[~2019-03-27 22:37] MED LIST changes: -Carafate1 GM/10 ML PO; -FLUVOXAMINE50 MG PO; -PANTOPRAZOLE SO40 MG PO; -SYNTHROID,LEV125 MCG PO
== END 2019-03-28 00:29 | disposition home or self-care (01) ==
LOC: ED 22:37
DX: D48.0 Neoplasm of uncertain behavior of bone and articular cartilage (principal); J44.9 Chronic obstructive pulmonary disease, unspecified; E11.9 Type 2 diabetes mellitus without complications; I10 Essential (primary) hypertension; E66.9 Obesity, unspecified; E03.9 Hypothyroidism, unspecified; G43.909 Migraine, unspecified, not intractable, without status migrainosus; Z88.6 Allergy status to analgesic agent; Z88.1 Allergy status to other antibiotic agents; Z88.8 Allergy status to other drugs, medicaments and biological substances; Z79.899 Other long term (current) drug therapy; Z79.82 Long term (current) use of aspirin; Z68.39 Body mass index [BMI] 39.0-39.9, adult; Z87.891 Personal history of nicotine dependence

== ENCOUNTER → 2019-04-08 | Outpatient (CLI) | payer OTHER ==
[~2019-04-08] MED LIST changes: +Carafate1 GM/10 ML PO; +FLUVOXAMINE50 MG PO; +PANTOPRAZOLE SO40 MG PO; +SYNTHROID,LEV125 MCG PO
--- NOTE | 2019-04-08 13:13 | NUR ---
PT HERE FOR MEDIPORT FLUSH ORDERED. SITE ACCESSED WITH NONCORING NEEDLE PER P/P. PROMPT BLOOD RETURN NOTED. FLUSHED WITH HEPAIN PER PP. NEEDLE REMOVED. DRESSING APPLIED. NO BLEEDING NOTED. DRESSING APPLIED. ROSA ELENA CINTRON RN
== END | disposition home or self-care (01) ==
LOC: MEDIPORT 13:00
DX: Z45.2 Encounter for adjustment and management of vascular access device (principal); J44.1 Chronic obstructive pulmonary disease with (acute) exacerbation

== ENCOUNTER → 2019-04-10 | Outpatient (CLI) | payer OTHER ==
[2019-04-10 12:58] LABS: HEMATOCRIT 43.2 % (37.0-47.0); HEMOGLOBIN 14.2 g/dl (12.0-16.0); MEAN CELL VOLUME 97.7 fl (81.0-99.0); MEAN CORPUSCULAR HGB 32.1 pg (27.0-31.0); MEAN CORPUSCULAR HGB CONC 32.9 g/dl (33.0-37.0); MEAN PLATELET VOLUME 11.7 fl (9.6-12.3); RED BLOOD COUNT 4.42 10*6/uL (4.10-5.10)
[2019-04-10 13:16] LABS: CHLORIDE 111 mmol/L (98-107); POTASSIUM 4.1 mmol/L (3.5-5.1); SODIUM 142 mmol/L (136-145)
[2019-04-10 13:51] LABS: ALBUMIN 3.5 gm/dl (3.1-4.5); ALKALINE PHOSPHATASE 95 U/L (45-117); BUN 14 mg/dl (7-24); CHOLESTEROL 202 mg/dL (<200); FREE T4 1.36 ng/dl (0.76-1.46); HDL CHOLESTEROL 33 mg/dl (40-60); LDL CHOLESTEROL 118 mg/dL (9-159); SGOT/AST 24 IU/L (3-35); SGPT/ALT 33 U/L (12-78); TOTAL PROTEIN 7.3 gm/dL (6.4-8.2); TRIGLYCERIDES 257 mg/dl (<150); VLDL CHOLESTEROL 51 mg/dL (6-40)
[2019-04-11 09:10] LABS: THYROID PEROXIDASE (TPO) AB 20 IU/mL (0-34)
[2019-04-11 14:08] LABS: THYROGLOBULIN ANTIBODY <1.0 IU/mL (0.0-0.9)
== END | disposition home or self-care (01) ==
LOC: LAB 12:08
PROVIDERS: Family Medicine
DX: R53.83 Other fatigue (principal); E78.00 Pure hypercholesterolemia, unspecified; M19.90 Unspecified osteoarthritis, unspecified site; E11.9 Type 2 diabetes mellitus without complications

== ENCOUNTER 2019-04-30 14:50 | Inpatient (IN) | payer OTHER ==
[~2019-04-30] VITALS: Ht 162.5 cm; Wt 94.4 kg
--- NOTE | ~2019-04-30 | EKG ---
[place], [place] ELECTROCARDIOGRAM REPORT NAME: SHILPA ECHEVERRIA UNIT #: [id number] ROOM: DOCTOR: EPIPHANY DRAFT REPORT BIRTHDATE: [birth year] [facility] Test Date: 2019-04-30 Test Time: 15:37:10 Pat Name: SHILPA ECHEVERRIA Department: Room: Gender: F Bridge Crew Member: Shilpa Avery : 1960 Requested By: APOORVA BAKER Order Number: [id number] Reading MD: Tian Solorio MD Measurements Intervals [place] Rate: 72 P: 35 GA: 137 QRS: 32 QRSD: 105 T: 17 QT: 443 QTc: 485 Interpretive Statements Sinus rhythm Consider anterior infarct Compared to ECG 01/23/2019 23:17:16 Intraventricular conduction delay no longer present Electronically Signed On 04-30-2019 14:50:46 PDT by Tian Solorio MD CM:EKGRPT:ELECTROCARDIOGRAM REPORT 1537 1450 APOORVA ENRIQUEZ DRAFT REPORT APOORVA BAKER DO
--- NOTE | ~2019-04-30 | O ---
[place], [place] OPERATIVE NOTE NAME: [facility] [id number] UNIT #: [id number] ROOM: 503 DOCTOR: LEXY JACKSON,KITTY BIRTHDATE: [birth year] DOS: GASTROENDOSCOPIC REPORT INDICATIONS: The patient has presented with abnormal CT reading suspected distal esophageal thickening, epigastric distress. PROCEDURE: Today's procedure part of investigation is panendoscopy plus biopsy. PREMEDICATION: Propofol. SCOPE: Olympus forward-viewing gastroscope Q10 video. REPORT: After putting the patient in left lateral position and application of lubricant to the scope, the scope was introduced. Thereafter, under direct visualization, advanced through the length of esophagus without difficulty. Distal esophagus is within normal limit. Gastric pouch was entered. Multiple small antral ulcerations were noticed. Duodenum is within normal limit. Antral biopsy obtained. The patient extubated, tolerated the procedure well. IMPRESSION: Multi-antral small ulceration, gastritis, duodenitis. No pathology at distal esophagus. PLAN: Resumption of feeding. Protonix 40 mg daily. KITTY PUGH MD CM:OPRECORD:OPERATIVE NOTE 22 30 KITTY PUGH MD 05/02/191928 interface
--- NOTE | ~2019-04-30 | CON ---
[place], [place] REPORT OF CONSULTATION [id number] UNIT #: [id number] ROOM: 503 DOCTOR: KITTY PUGH MD BIRTHDATE: [birth year] DOS: 05/02/2019 GASTROENDOSCOPIC REPORT HISTORY OF PRESENT ILLNESS: A 58-year-old patient who has presented with chief complaint of pain, dyspepsia, undergoing investigation. The patient had a panel of blood work, CBC with differential within normal limits. Urinalysis was unremarkable. INR was 0.9. Comprehensive metabolic panel: GFR greater than 60. Electrolytes borderline balanced. Liver function tests normal. C-reactive protein normal. Lactic acid not elevated. Chest x-ray, no active disease. CT scan of the abdomen and pelvis, mild distal esophageal wall thickening suggestive of underlying esophagitis, suspected thickening. Urine culture, no growth. Comprehensive metabolic panel remained the same. Borderline hypokalemia. PAST MEDICAL HISTORY: Diabetes, degenerative joint disease, COPD, depression, hypothyroidism, hypertriglyceridemia, migraine cephalalgia, obesity, history of thrombocytopenia. PAST SURGICAL HISTORY: Cholecystectomy, , appendectomy, exploratory laparotomy, and parathyroidectomy. SOCIAL HISTORY: Stopped smoking 10 years ago. At the present time, rare alcohol consumer. FAMILY HISTORY: Noncontributory. ALLERGIES: MULTIPLE MEDICATIONS: REGLAN, ATIVAN, LEVAQUIN, AVELOX, ZOFRAN, AND COMPAZINE. MEDICATIONS: List has been reviewed, aspirin included. REVIEW OF SYSTEMS: HEENT: Denies double vision, blurred vision. RESPIRATORY: Denies acute shortness of breath. CARDIOVASCULAR: Denies acute chest pain. DIGESTIVE SYSTEM: Epigastric pain. PHYSICAL EXAMINATION: VITAL SIGNS: Stable. HEENT: Within normal limits. NECK: Supple, no thyromegaly, no cervical lymphadenopathy. CHEST: Symmetric anatomy, equal expansion. No wheeze, no rhonchi. HEART: Normal sinus rhythm, no gallop, no murmur. ABDOMEN: Soft. No hepato-organomegaly. Bowel sounds present. Obese. EXTREMITIES: No cyanosis, no pedal edema. NEUROLOGIC: Alert, oriented to time, place. IMPRESSION: Epigastric pain. Other adjunctive diagnoses, as outlined in paragraph of past medical, surgical history. Esophageal thickening, concern [place], [place] REPORT OF CONSULTATION NAME: CHRIS ECHEVERRIA UNIT #: [id number] ROOM: 503 DOCTOR: LEXY JACKSON,KITTY BIRTHDATE: [birth year] about distal esophagus pathology, hypertension, obesity, hypothyroidism, all has been reviewed, and degenerative joint disease known. PLAN AND DISCUSSION: Endoscopic assessment of upper GI tract. KITTY PUGH MD CM:CONSTR:REPORT OF CONSULTATION 1838 05/03/19 0629 interface
[2019-04-30 14:50] VITALS: BP 161/80
[~2019-04-30 14:50] MED LIST changes: -Carafate1 GM/10 ML PO; -FLUVOXAMINE50 MG PO; -PANTOPRAZOLE SO40 MG PO; -SYNTHROID,LEV125 MCG PO
[2019-04-30 15:50] LABS: BILIRUBIN NEGATIVE (NEGATIVE); BLOOD NEGATIVE (NEGATIVE); CLARITY CLEAR (CLEAR); COLOR YELLOW (YELLOW); GLUCOSE NEGATIVE (NEGATIVE); KETONE NEGATIVE (NEGATIVE); LEUKO ESTERASE TRACE (NEGATIVE); NITRITE NEGATIVE (NEGATIVE); UROBILINOGEN 0.2 E.U./dl (0.2-1.0)
[2019-04-30 15:54] LABS: BASO % 0.6 % (0.0-1.0); EOS # 0.1 10*3/uL (0.0-0.4); EOS % 1.8 % (1.0-4.0); HEMATOCRIT 43.9 % (37.0-47.0); HEMOGLOBIN 14.7 g/dl (12.0-16.0); LYMPH # 2.1 10*3/uL (1.3-4.4); LYMPH % 28.2 % (27.0-41.0); MEAN CELL VOLUME 96.1 fl (81.0-99.0); MEAN CORPUSCULAR HGB 32.2 pg (27.0-31.0); MEAN CORPUSCULAR HGB CONC 33.5 g/dl (33.0-37.0); MEAN PLATELET VOLUME 10.9 fl (9.6-12.3); MONO # 0.6 10*3/uL (0.1-1.0); MONO % 8.1 % (3.0-9.0); NEUT # 4.4 10*3/uL (2.3-7.9); PLATELET COUNT AUTOMATED 133 10*3/uL (130-400); RED BLOOD COUNT 4.57 10*6/uL (4.10-5.10); RED CELL DISTRI WIDTH 12.6 % (0-14.5); WHITE BLOOD COUNT 7.3 10*3/uL (4.8-10.8)
[2019-04-30 16:07] LABS: ACT PARTIAL THROMBO TIME 38.1 SECONDS (20.0-32.1); INTERNATIONAL NORM RATIO 0.9 (2.0-3.5)
[2019-04-30 16:15] LABS: ALBUMIN 3.4 gm/dl (3.1-4.5); ALKALINE PHOSPHATASE 92 U/L (45-117); BUN 15 mg/dl (7-24); CHLORIDE 102 mmol/L (98-107); CREATININE 0.97 mg/dL (0.55-1.02); LIPASE 267 U/L (73-393); POTASSIUM 3.4 mmol/L (3.5-5.1); SGOT/AST 14 IU/L (3-35); SGPT/ALT 28 U/L (12-78); SODIUM 137 mmol/L (136-145); TOTAL PROTEIN 7.4 gm/dL (6.4-8.2)
[2019-04-30 16:24] LABS: TROPONIN I < 0.015 ng/ml (<0.045)
--- NOTE | 2019-04-30 17:11 | NUR ---
PT BACK FROM CT SCAN AT THIS TIME.
--- NOTE | 2019-04-30 17:59 | NUR ---
LYING IN BED WATCHING TV.
[2019-04-30 20:00] VITALS: BP 177/87
--- NOTE | 2019-04-30 20:00 | NUR ---
A 58, admitted to 5E, under the services of LELE Rea DO with a diagnosis of ABDOMINAL PAIN. Chief complaint is ABDOMINAL PAIN. Patient arrived via wheel chair from ER. Monitor applied. Initial assessment completed. Vital signs taken and recorded. LELE REA DO notified of admission to the unit. Orders received. See assessment for past medical history, medications and allergies. Patient and/or family oriented to unit. [facility] visitation policy reviewed. Clothing/patient valuable form completed. ESPINOZA BUENO
[2019-04-30] MEDS ORDERED: SYNTHROID,LEV125 MCG PO (20:19)
--- NOTE | 2019-04-30 21:30 | NUR ---
DR. PENNY NOTIFIED OF COMPLETED MED REC.
[2019-05-01] VITALS: BP 130/61
[2019-05-01 06:30] LABS: BASO % 0.7 % (0.0-1.0); EOS # 0.2 10*3/uL (0.0-0.4); EOS % 3.1 % (1.0-4.0); HEMATOCRIT 40.8 % (37.0-47.0); HEMOGLOBIN 13.5 g/dl (12.0-16.0); LYMPH # 1.9 10*3/uL (1.3-4.4); LYMPH % 30.4 % (27.0-41.0); MEAN CELL VOLUME 96.9 fl (81.0-99.0); MEAN CORPUSCULAR HGB 32.1 pg (27.0-31.0); MEAN CORPUSCULAR HGB CONC 33.1 g/dl (33.0-37.0); MEAN PLATELET VOLUME 11.4 fl (9.6-12.3); MONO # 0.6 10*3/uL (0.1-1.0); MONO % 9.2 % (3.0-9.0); NEUT # 3.4 10*3/uL (2.3-7.9); NEUT % 56.1 % (47.0-73.0); PLATELET COUNT AUTOMATED 116 10*3/uL (130-400); RED BLOOD COUNT 4.21 10*6/uL (4.10-5.10); RED CELL DISTRI WIDTH 12.5 % (0-14.5); WHITE BLOOD COUNT 6.1 10*3/uL (4.8-10.8)
[2019-05-01 06:35] LABS: INTERNATIONAL NORM RATIO 0.9 (2.0-3.5)
[2019-05-01 06:59] LABS: ALKALINE PHOSPHATASE 82 U/L (45-117); BUN 12 mg/dl (7-24); CHLORIDE 104 mmol/L (98-107); PHOSPHOROUS 3.7 mg/dL (2.5-4.9); POTASSIUM 3.3 mmol/L (3.5-5.1); SGOT/AST 18 IU/L (3-35); SGPT/ALT 21 U/L (12-78); SODIUM 138 mmol/L (136-145); TOTAL PROTEIN 6.4 gm/dL (6.4-8.2)
[2019-05-01] MEDS ORDERED: FLUVOXAMINE50 MG PO (07:30)
[2019-05-01 08:00] VITALS: BP 129/60
[2019-05-01 08:37] LABS: VITAMIN D, 25-HYDROXY 25.8 ng/mL (30-100)
--- NOTE | 2019-05-01 10:47 | NUR ---
PT COMPLAIN OF ABDOMINAL PAIN, NORCO GIVEN. PT STATES NAUSEA IS RETURNING, PT AWARE THAT PHENERGAN IS NOT DUE AT THIS TIME. OKAY WITH WAITING UNTIL MEDICATION DUE. PT STATES NO OTHER NEEDS AT THIS TIME
--- NOTE | 2019-05-01 11:38 | NUR ---
Supervisor Varnish in to talk to patient. Patient states lives at HOME with ALONE. There are FEW steps in the home. Physician: MALIK Pharmacy: [facility] [place] Home health services: NONE Patient's level of ADLs: INDEPENDENT Patient has working utilities: YES DME: NONE Follow-up physician's appointment after d/c: WILL BE MADE BY HOSPITALIST NURSE DIRECTOR ON DISCHARGE Does patient want to access PORTAL?: NO Discharge plan PT LIVES AT HOME ALONE. STATES HE IN SEPTEMBER. DENIES THAT SHE WILL HAVE ANY NEEDS ON DISCHARGE. WILL CONTINUE TO FOLLOW. PT STATES SHE WILL HAVE A RIDE HOME.. KIM NARAYAN
--- NOTE | 2019-05-01 11:45 | NUR ---
PT COMPLAIN OF NAUSEA, PHENERGAN GIVEN.
[2019-05-01 12:00] VITALS: BP 149/63
--- NOTE | 2019-05-01 14:37 | NUR ---
PT STATES PAIN ABDOMEN 06/03, NORCO GIVEN.
[2019-05-01 16:00] VITALS: BP 117/79
[2019-05-01 20:00] VITALS: BP 133/70
--- NOTE | 2019-05-01 20:10 | NUR ---
NORCO GIVEN PER ORDER FOR 9 OUT OF 10 ABDOMINAL PAIN. WILL CONTINUE TO MONITOR AND REASSESS.
--- NOTE | 2019-05-01 21:00 | NUR ---
PT STATES NORCO EFFECTIVE FOR PAIN.
--- NOTE | 2019-05-01 22:30 | NUR ---
PT STATES SHE IS NAUSEATED. PHENERGAN GIVEN. WILL CONTINUE TO MONITOR AND REASSESS.
--- NOTE | 2019-05-01 23:30 | NUR ---
PT STATES NAUSEA IS GONE. PHENERGAN HELPED AT THIS TIME. NO NEW NEEDS. CALL LIGHT IN REACH.
[2019-05-02] VITALS (8 sets, daily range): BP systolic 100–145; BP diastolic 56–86
--- NOTE | 2019-05-02 08:33 | NUR ---
Phenergan given per patient request for c/o nausea. Will monitor.
--- NOTE | 2019-05-02 09:30 | NUR ---
Phenergan effective. Patient asleep with respirations >12.
--- NOTE | 2019-05-02 10:47 | NUR ---
PT DENIES HOME NEEDS ON DISCHARGE. WILL CONTINUE TO FOLLOW.
--- NOTE | 2019-05-02 14:57 | NUR ---
Phenergan given per patient request for c/o nausea. Will monitor.
--- NOTE | 2019-05-02 15:52 | NUR ---
Per patient, Phenergan effective. No c/o nausea.
--- NOTE | 2019-05-02 15:52 | NUR ---
Morphine given per patient request for c/o abdominal pain. Will monitor.
--- NOTE | 2019-05-02 16:30 | NUR ---
Morphine effective. Patient rates pain 5/10.
--- NOTE | 2019-05-02 20:15 | NUR ---
PATIENT BACK FROM SURGERY. VITALS STABLE. VOICES NO COMPLAINTS AT THIS TIME. WILL CONTINUE TO MONITOR.
--- NOTE | 2019-05-02 21:30 | NUR ---
MEDICATED PATIENT WITH NORCO FOR COMPLAINTS OF ABDOMINAL PAIN. RATES04/02. WILL CHECK EFFECTIVENESS.
--- NOTE | 2019-05-02 23:08 | NUR ---
PT. SLEEPING, NORCO EFFECTIVE.
[2019-05-03] VITALS: BP 102/48
--- NOTE | 2019-05-03 03:21 | NUR ---
24 HR chart check completed.
--- NOTE | 2019-05-03 06:14 | NUR ---
PATIENT MEDICATED WITH PHENERGAN AND NORCO PER PRN ORDER FOR C/O PAIN AND NAUSEA. SEE EMAR. REINFORCED USE OF CALL LIGHT.
[2019-05-03 06:42] LABS: BASO # 0.1 10*3/uL (0.0-0.1); BASO % 0.8 % (0.0-1.0); EOS # 0.2 10*3/uL (0.0-0.4); EOS % 3.2 % (1.0-4.0); HEMATOCRIT 43.3 % (37.0-47.0); HEMOGLOBIN 13.9 g/dl (12.0-16.0); LYMPH # 1.6 10*3/uL (1.3-4.4); LYMPH % 26.5 % (27.0-41.0); MEAN CELL VOLUME 99.1 fl (81.0-99.0); MEAN CORPUSCULAR HGB 31.8 pg (27.0-31.0); MEAN CORPUSCULAR HGB CONC 32.1 g/dl (33.0-37.0); MEAN PLATELET VOLUME 11.6 fl (9.6-12.3); MONO # 0.6 10*3/uL (0.1-1.0); MONO % 9.3 % (3.0-9.0); NEUT # 3.5 10*3/uL (2.3-7.9); NEUT % 59.9 % (47.0-73.0); PLATELET COUNT AUTOMATED 126 10*3/uL (130-400); RED BLOOD COUNT 4.37 10*6/uL (4.10-5.10); RED CELL DISTRI WIDTH 12.6 % (0-14.5); WHITE BLOOD COUNT 5.9 10*3/uL (4.8-10.8)
[2019-05-03 06:54] LABS: BUN 17 mg/dl (7-24); CHLORIDE 108 mmol/L (98-107); CREATININE 0.96 mg/dL (0.55-1.02); POTASSIUM 3.4 mmol/L (3.5-5.1); SODIUM 140 mmol/L (136-145)
[2019-05-03 08:00] VITALS: BP 107/66
[2019-05-03 12:00] VITALS: BP 112/67
--- NOTE | 2019-05-03 13:23 | NUR ---
Phenergan given for patient c/o nausea. Will monitor.
--- NOTE | 2019-05-03 13:27 | NUR ---
[place] given per patient request for c/o abdominal pain rated 8/10. Will monitor.
--- NOTE | 2019-05-03 14:00 | NUR ---
Phenergan effective. Patient states "the nausea is gone." [place] effective patient rates abdominal pain 5/10.
[2019-05-03 16:00] VITALS: BP 96/58
--- NOTE | 2019-05-03 16:55 | NUR ---
Contacted [facility] pharmacy for updated med list.
[2019-05-03 20:00] VITALS: BP 109/42
--- NOTE | 2019-05-03 20:14 | NUR ---
AWAKE/ALERT FOR SHIFT ASSESSMENT. RESPIRATIONS EASY/REG ON RA. C/O AB PAIN RATED 9/10. MEDICATED WITH PRN NORCO ORDERED. REQUESTING NAUSEA MEDICATION AT BEDTIME. CALL LIGHT IN REACH. WILL MONITOR.
[2019-05-04] VITALS: BP 97/52
--- NOTE | 2019-05-04 02:57 | NUR ---
PATIENT SLEEPING. RESPIRATIONS EASY/REG. NO S/S OF DISTRESS NOTED. CALL LIGHT IN REACH
[2019-05-04 08:00] VITALS: BP 103/51
[2019-05-04 12:00] VITALS: BP 106/67
[2019-05-04] MEDS ORDERED: Carafate1 GM/10 ML PO (13:28)
[2019-05-04] MEDS ORDERED: PANTOPRAZOLE SO40 MG PO (13:28)
--- NOTE | 2019-05-04 15:03 | NUR ---
Discharge instructions reviewed with patient/family. Patient receptive and verbalizes understanding. Follow-up care arranged. Written instructions given to patient/family. TENZIN PHILIP
== END 2019-05-04 15:03 | disposition home or self-care (01) | DRG 392 ==
LOC: ED 14:50 → 5E 18:25 → EDHOLD 18:25 → 5E 19:25
PROVIDERS: Emergency Medicine; Family Medicine; Student in an Organized Health Care Education/Training Program; ADMIT Internal Medicine
PROC: 0DB68ZX Excision of Stomach, Via Natural or Artificial Opening Endoscopic, Diagnostic (ICD-10-PCS; principal; 2019-04-30)
DX: K29.80 Duodenitis without bleeding (principal); E44.1 Mild protein-calorie malnutrition; K29.70 Gastritis, unspecified, without bleeding; K25.9 Gastric ulcer, unspecified as acute or chronic, without hemorrhage or perforation; E11.65 Type 2 diabetes mellitus with hyperglycemia; K22.8 Other specified diseases of esophagus; E87.6 Hypokalemia; M50.30 Other cervical disc degeneration, unspecified cervical region; E66.9 Obesity, unspecified; Z68.39 Body mass index [BMI] 39.0-39.9, adult; E55.9 Vitamin D deficiency, unspecified; K21.9 Gastro-esophageal reflux disease without esophagitis; F33.41 Major depressive disorder, recurrent, in partial remission; E78.1 Pure hyperglyceridemia; I10 Essential (primary) hypertension; G43.909 Migraine, unspecified, not intractable, without status migrainosus; E89.0 Postprocedural hypothyroidism; M19.90 Unspecified osteoarthritis, unspecified site; F41.9 Anxiety disorder, unspecified; G47.00 Insomnia, unspecified; J43.9 Emphysema, unspecified; Z90.49 Acquired absence of other specified parts of digestive tract; Z98.891 History of uterine scar from previous surgery; Z90.89 Acquired absence of other organs; Z90.710 Acquired absence of both cervix and uterus; Z88.6 Allergy status to analgesic agent; Z88.8 Allergy status to other drugs, medicaments and biological substances; Z79.82 Long term (current) use of aspirin; Z79.899 Other long term (current) drug therapy; Z79.4 Long term (current) use of insulin; Z87.891 Personal history of nicotine dependence; Z82.49 Family history of ischemic heart disease and other diseases of the circulatory system; Z83.3 Family history of diabetes mellitus; Z68.35 Body mass index [BMI] 35.0-35.9, adult

== ENCOUNTER → 2019-06-25 | Outpatient (CLI) | payer OTHER ==
[~2019-06-25] MED LIST changes: +Carafate1 GM/10 ML PO; +FLUVOXAMINE50 MG PO; +PANTOPRAZOLE SO40 MG PO; +SYNTHROID,LEV125 MCG PO
--- NOTE | 2019-06-25 11:05 | NUR ---
PT HERE FOR MEDIPORT FLUSH ORDERED. SITE ACCESSED PER POLICY ORDERED. NONCORING NEEDLE ACCESSED RSC/MEDIPORT WITHOUT DIFFCULTY. PROMPT BLOOD RETURN NOTED. HEPARIN FLUSH PER POLICY. TOLERATED WELL. NEEDLE REMOVED. DRESSING APPLIED. ROSA ELENA CINTRON RN
== END | disposition home or self-care (01) ==
LOC: MEDIPORT 00:34
DX: Z45.2 Encounter for adjustment and management of vascular access device (principal)

== ENCOUNTER → 2019-07-31 | Outpatient (CLI) | payer OTHER ==
--- NOTE | 2019-07-31 09:57 | NUR ---
[address] [place] [address] ACCESSED WITH NON-CORING NEEDLE AFTER CLEANSING WITH CHLORAPREP. BLOOD RETURN OBTAINED AND PORT FLUSHED PER POLICY. NON-CORING NEEDLE WITHDRAWN INTACT AND BANDAID TO SITE.
--- NOTE | 2019-07-31 10:06 | NUR ---
[address] [place] [address] accessed with non-coring needle after cleansing with chloraprep. blood return obtained and port flushed per policy. non-coring needle withdrawn intact and bandaid to site.
== END | disposition home or self-care (01) ==
LOC: MEDIPORT 08:52
DX: Z45.2 Encounter for adjustment and management of vascular access device (principal); J44.1 Chronic obstructive pulmonary disease with (acute) exacerbation

== ENCOUNTER 2019-08-29 19:52 | Emergency (ER) | payer SELFPAY ==
[~2019-08-29] VITALS: Ht 162.5 cm; Wt 90.3 kg
[2019-08-29 21:13] LABS: BASO # 0.1 10*3/uL (0.0-0.1); BASO % 0.7 % (0.0-1.0); EOS # 0.2 10*3/uL (0.0-0.4); EOS % 2.2 % (1.0-4.0); HEMATOCRIT 42.4 % (37.0-47.0); LYMPH # 2.7 10*3/uL (1.3-4.4); LYMPH % 31.4 % (27.0-41.0); MEAN CELL VOLUME 92.6 fl (81.0-99.0); MEAN CORPUSCULAR HGB 30.6 pg (27.0-31.0); MEAN PLATELET VOLUME 11.3 fl (9.6-12.3); MONO # 0.8 10*3/uL (0.1-1.0); MONO % 8.9 % (3.0-9.0); NEUT # 4.9 10*3/uL (2.3-7.9); NEUT % 56.6 % (47.0-73.0); PLATELET COUNT AUTOMATED 156 10*3/uL (130-400); RED BLOOD COUNT 4.58 10*6/uL (4.10-5.10); RED CELL DISTRI WIDTH 12.6 % (0-14.5); WHITE BLOOD COUNT 8.7 10*3/uL (4.8-10.8)
[2019-08-29 21:22] LABS: ACT PARTIAL THROMBO TIME 24.9 SECONDS (20.0-32.1); INTERNATIONAL NORM RATIO 0.9 (2.0-3.5)
[2019-08-29 21:29] LABS: ALBUMIN 3.6 gm/dl (3.1-4.5); CREATININE 1.21 mg/dL (0.55-1.02); POTASSIUM 4.6 mmol/L (3.5-5.1); TOTAL PROTEIN 7.5 gm/dL (6.4-8.2)
== END 2019-08-29 23:27 | disposition home or self-care (01) ==
LOC: ED 19:52
PROVIDERS: Nurse Practitioner Family
DX: R04.0 Epistaxis (principal); R51 Headache; R11.0 Nausea; J44.9 Chronic obstructive pulmonary disease, unspecified; K21.9 Gastro-esophageal reflux disease without esophagitis; E11.9 Type 2 diabetes mellitus without complications; I10 Essential (primary) hypertension; E03.9 Hypothyroidism, unspecified; G43.909 Migraine, unspecified, not intractable, without status migrainosus; E66.9 Obesity, unspecified; Z79.4 Long term (current) use of insulin; Z87.891 Personal history of nicotine dependence

== ENCOUNTER 2019-09-05 17:37 | Emergency (ER) | payer SELFPAY ==
[~2019-09-05] VITALS: Ht 162.5 cm; Wt 90.3 kg
[2019-09-05 18:12] LABS: BASO # 0.1 10*3/uL (0.0-0.1); BASO % 0.7 % (0.0-1.0); EOS # 0.2 10*3/uL (0.0-0.4); EOS % 2.6 % (1.0-4.0); HEMATOCRIT 41.8 % (37.0-47.0); LYMPH # 2.1 10*3/uL (1.3-4.4); LYMPH % 24.3 % (27.0-41.0); MEAN CELL VOLUME 94.1 fl (81.0-99.0); MEAN CORPUSCULAR HGB 31.5 pg (27.0-31.0); MEAN CORPUSCULAR HGB CONC 33.5 g/dl (33.0-37.0); MEAN PLATELET VOLUME 10.9 fl (9.6-12.3); MONO # 0.7 10*3/uL (0.1-1.0); MONO % 8.1 % (3.0-9.0); NEUT # 5.6 10*3/uL (2.3-7.9); NEUT % 64.1 % (47.0-73.0); PLATELET COUNT AUTOMATED 153 10*3/uL (130-400); RED BLOOD COUNT 4.44 10*6/uL (4.10-5.10); RED CELL DISTRI WIDTH 12.6 % (0-14.5); WHITE BLOOD COUNT 8.8 10*3/uL (4.8-10.8)
[2019-09-05 18:41] LABS: BUN 12 mg/dl (7-24); CHLORIDE 100 mmol/L (98-107); CREATININE 1.06 mg/dL (0.55-1.02); POTASSIUM 3.9 mmol/L (3.5-5.1); SODIUM 135 mmol/L (136-145)
== END 2019-09-05 18:47 | disposition home or self-care (01) ==
LOC: ED 17:37
PROVIDERS: Emergency Medicine
DX: R04.0 Epistaxis (principal); J44.9 Chronic obstructive pulmonary disease, unspecified; K21.9 Gastro-esophageal reflux disease without esophagitis; I10 Essential (primary) hypertension; E03.9 Hypothyroidism, unspecified; G43.909 Migraine, unspecified, not intractable, without status migrainosus; E66.9 Obesity, unspecified; E11.9 Type 2 diabetes mellitus without complications; Z88.1 Allergy status to other antibiotic agents; Z88.8 Allergy status to other drugs, medicaments and biological substances; Z68.39 Body mass index [BMI] 39.0-39.9, adult; Z87.891 Personal history of nicotine dependence; Z79.899 Other long term (current) drug therapy; Z79.82 Long term (current) use of aspirin; Z79.4 Long term (current) use of insulin

== ENCOUNTER 2019-09-12 19:52 | Emergency (ER) | payer OTHER ==
[~2019-09-12] VITALS: Ht 162.5 cm; Wt 90.3 kg
== END 2019-09-12 21:41 | disposition home or self-care (01) ==
LOC: ED 19:52
DX: R04.0 Epistaxis (principal); J30.9 Allergic rhinitis, unspecified; J44.9 Chronic obstructive pulmonary disease, unspecified; E11.9 Type 2 diabetes mellitus without complications; Z79.4 Long term (current) use of insulin; K21.9 Gastro-esophageal reflux disease without esophagitis; I10 Essential (primary) hypertension; E78.1 Pure hyperglyceridemia; E03.9 Hypothyroidism, unspecified; G43.909 Migraine, unspecified, not intractable, without status migrainosus; E66.9 Obesity, unspecified; Z91.048 Other nonmedicinal substance allergy status; Z88.5 Allergy status to narcotic agent; Z88.1 Allergy status to other antibiotic agents; Z88.8 Allergy status to other drugs, medicaments and biological substances; Z79.82 Long term (current) use of aspirin; Z79.899 Other long term (current) drug therapy; Z68.30 Body mass index [BMI] 30.0-30.9, adult; Z87.891 Personal history of nicotine dependence

== ENCOUNTER 2019-10-17 12:23 | Emergency (ER) | payer OTHER ==
[~2019-10-17] VITALS: Ht 162.5 cm; Wt 79.4 kg
== END 2019-10-17 12:45 | disposition home or self-care (01) ==
LOC: ED 12:23
DX: E11.65 Type 2 diabetes mellitus with hyperglycemia (principal); E66.9 Obesity, unspecified; J44.9 Chronic obstructive pulmonary disease, unspecified; K21.9 Gastro-esophageal reflux disease without esophagitis; I10 Essential (primary) hypertension; E03.9 Hypothyroidism, unspecified; G43.909 Migraine, unspecified, not intractable, without status migrainosus; Z88.5 Allergy status to narcotic agent; Z88.1 Allergy status to other antibiotic agents; Z88.8 Allergy status to other drugs, medicaments and biological substances; Z79.82 Long term (current) use of aspirin; Z79.4 Long term (current) use of insulin; Z68.30 Body mass index [BMI] 30.0-30.9, adult; Z90.49 Acquired absence of other specified parts of digestive tract; Z90.710 Acquired absence of both cervix and uterus; Z87.891 Personal history of nicotine dependence

== ENCOUNTER 2019-10-27 10:43 | Emergency (ER) | payer OTHER ==
[~2019-10-27] VITALS: Ht 160 cm; Wt 90.3 kg
[2019-10-27 11:47] LABS: BASO # 0.1 10*3/uL (0.0-0.1); BASO % 0.7 % (0.0-1.0); EOS # 0.2 10*3/uL (0.0-0.4); EOS % 2.3 % (1.0-4.0); HEMATOCRIT 37.8 % (37.0-47.0); HEMOGLOBIN 12.4 g/dl (12.0-16.0); LYMPH # 1.9 10*3/uL (1.3-4.4); LYMPH % 25.3 % (27.0-41.0); MEAN CELL VOLUME 94.3 fl (81.0-99.0); MEAN CORPUSCULAR HGB 30.9 pg (27.0-31.0); MEAN CORPUSCULAR HGB CONC 32.8 g/dl (33.0-37.0); MEAN PLATELET VOLUME 10.5 fl (9.6-12.3); MONO # 0.5 10*3/uL (0.1-1.0); MONO % 6.7 % (3.0-9.0); NEUT # 4.7 10*3/uL (2.3-7.9); NEUT % 64.5 % (47.0-73.0); PLATELET COUNT AUTOMATED 137 10*3/uL (130-400); RED BLOOD COUNT 4.01 10*6/uL (4.10-5.10); RED CELL DISTRI WIDTH 13.6 % (0-14.5); WHITE BLOOD COUNT 7.3 10*3/uL (4.8-10.8)
[2019-10-27 11:50] LABS: BILIRUBIN NEGATIVE (NEGATIVE); BLOOD NEGATIVE (NEGATIVE); CLARITY SL CLOUDY (CLEAR); COLOR YELLOW (YELLOW); GLUCOSE NEGATIVE (NEGATIVE); KETONE NEGATIVE (NEGATIVE); LEUKO ESTERASE 2+ (NEGATIVE); NITRITE NEGATIVE (NEGATIVE); SPECIFIC GRAVITY 1.025 (1.005-1.030); UROBILINOGEN 0.2 E.U./dl (0.2-1.0)
[2019-10-27 11:51] LABS: BACTERIA 1+; EPITHELIAL CELLS 0-2; WBC TNTC wbc/hpf (0-5)
[2019-10-27 12:03] LABS: ALBUMIN 3.2 gm/dl (3.1-4.5); CREATININE 1.18 mg/dL (0.55-1.02); POTASSIUM 3.9 mmol/L (3.5-5.1); TOTAL PROTEIN 6.5 gm/dL (6.4-8.2)
[2019-10-27] MEDS ORDERED: IBUPROFEN600 MG PO (14:55)
[2019-10-27] MEDS ORDERED: MACROBID100 M1 PO (14:55)
== END 2019-10-27 15:01 | disposition home or self-care (01) ==
LOC: ED 10:43
PROVIDERS: Physician Assistant
DX: N39.0 Urinary tract infection, site not specified (principal); K52.9 Noninfective gastroenteritis and colitis, unspecified; R11.2 Nausea with vomiting, unspecified; Z88.6 Allergy status to analgesic agent; Z88.1 Allergy status to other antibiotic agents; Z88.8 Allergy status to other drugs, medicaments and biological substances; Z79.899 Other long term (current) drug therapy; Z79.82 Long term (current) use of aspirin; Z87.891 Personal history of nicotine dependence

== ENCOUNTER 2019-10-28 08:22 | Emergency (ER) | payer OTHER ==
[~2019-10-28] VITALS: Ht 162.5 cm; Wt 90.3 kg
[~2019-10-28 08:22] MED LIST changes: +IBUPROFEN600 MG PO
[2019-10-28 09:36] LABS: BASO % 0.7 % (0.0-1.0); EOS # 0.2 10*3/uL (0.0-0.4); EOS % 2.8 % (1.0-4.0); HEMATOCRIT 38.8 % (37.0-47.0); HEMOGLOBIN 12.7 g/dl (12.0-16.0); LYMPH # 1.4 10*3/uL (1.3-4.4); LYMPH % 23.3 % (27.0-41.0); MEAN CELL VOLUME 94.2 fl (81.0-99.0); MEAN CORPUSCULAR HGB 30.8 pg (27.0-31.0); MEAN CORPUSCULAR HGB CONC 32.7 g/dl (33.0-37.0); MEAN PLATELET VOLUME 10.3 fl (9.6-12.3); MONO # 0.4 10*3/uL (0.1-1.0); NEUT % 65.7 % (47.0-73.0); PLATELET COUNT AUTOMATED 145 10*3/uL (130-400); RED BLOOD COUNT 4.12 10*6/uL (4.10-5.10); RED CELL DISTRI WIDTH 13.5 % (0-14.5); WHITE BLOOD COUNT 6.1 10*3/uL (4.8-10.8)
[2019-10-28 09:53] LABS: ALBUMIN 3.3 gm/dl (3.1-4.5); CREATININE 1.15 mg/dL (0.55-1.02); POTASSIUM 3.6 mmol/L (3.5-5.1); TOTAL PROTEIN 6.5 gm/dL (6.4-8.2)
== END 2019-10-28 11:10 | disposition left against medical advice (07) ==
LOC: ED 08:22
PROVIDERS: Nurse Practitioner Family
DX: N39.0 Urinary tract infection, site not specified (principal); E11.9 Type 2 diabetes mellitus without complications; J44.9 Chronic obstructive pulmonary disease, unspecified; E78.00 Pure hypercholesterolemia, unspecified; Z88.5 Allergy status to narcotic agent; Z88.1 Allergy status to other antibiotic agents; Z88.8 Allergy status to other drugs, medicaments and biological substances; Z79.2 Long term (current) use of antibiotics; Z79.899 Other long term (current) drug therapy; Z79.82 Long term (current) use of aspirin; Z90.49 Acquired absence of other specified parts of digestive tract; Z90.710 Acquired absence of both cervix and uterus; Z87.891 Personal history of nicotine dependence

== ENCOUNTER 2019-11-16 00:45 | Emergency (ER) | payer OTHER ==
[~2019-11-16] VITALS: Ht 162.5 cm; Wt 98.6 kg
[2019-11-16 01:39] LABS: BASO # 0.1 10*3/uL (0.0-0.1); BASO % 0.8 % (0.0-1.0); EOS # 0.2 10*3/uL (0.0-0.4); EOS % 2.7 % (1.0-4.0); HEMATOCRIT 36.6 % (37.0-47.0); HEMOGLOBIN 12.1 g/dl (12.0-16.0); LYMPH # 2.1 10*3/uL (1.3-4.4); LYMPH % 23.3 % (27.0-41.0); MEAN CELL VOLUME 93.8 fl (81.0-99.0); MEAN CORPUSCULAR HGB CONC 33.1 g/dl (33.0-37.0); MEAN PLATELET VOLUME 11.1 fl (9.6-12.3); MONO # 0.9 10*3/uL (0.1-1.0); MONO % 10.3 % (3.0-9.0); NEUT # 5.5 10*3/uL (2.3-7.9); NEUT % 62.4 % (47.0-73.0); PLATELET COUNT AUTOMATED 145 10*3/uL (130-400); RED CELL DISTRI WIDTH 13.2 % (0-14.5); WHITE BLOOD COUNT 8.8 10*3/uL (4.8-10.8)
[2019-11-16 01:52] LABS: ALBUMIN 3.2 gm/dl (3.1-4.5); ALKALINE PHOSPHATASE 90 U/L (45-117); BUN 22 mg/dl (7-24); CHLORIDE 108 mmol/L (98-107); CREATININE 1.15 mg/dL (0.55-1.02); POTASSIUM 3.8 mmol/L (3.5-5.1); SGOT/AST 13 IU/L (3-35); SGPT/ALT 22 U/L (12-78); SODIUM 141 mmol/L (136-145); TOTAL PROTEIN 6.5 gm/dL (6.4-8.2)
[2019-11-16 01:54] LABS: TROPONIN I < 0.015 ng/ml (<0.045)
== END 2019-11-16 06:50 | disposition home or self-care (01) ==
LOC: ED 00:45
PROVIDERS: Emergency Medicine Emergency Medical Services
DX: R07.9 Chest pain, unspecified (principal); M54.9 Dorsalgia, unspecified; J44.9 Chronic obstructive pulmonary disease, unspecified; E11.9 Type 2 diabetes mellitus without complications; K21.9 Gastro-esophageal reflux disease without esophagitis; I10 Essential (primary) hypertension; E03.9 Hypothyroidism, unspecified; G43.909 Migraine, unspecified, not intractable, without status migrainosus; E78.00 Pure hypercholesterolemia, unspecified; Z88.5 Allergy status to narcotic agent; Z88.8 Allergy status to other drugs, medicaments and biological substances; Z88.1 Allergy status to other antibiotic agents; Z79.2 Long term (current) use of antibiotics; Z79.899 Other long term (current) drug therapy; Z79.82 Long term (current) use of aspirin; Z90.49 Acquired absence of other specified parts of digestive tract; Z90.710 Acquired absence of both cervix and uterus; Z87.891 Personal history of nicotine dependence

== ENCOUNTER 2019-11-27 13:02 | Emergency (ER) | payer OTHER ==
[~2019-11-27] VITALS: Wt 90.3 kg
[2019-11-27] MEDS ORDERED: ZITHROMAX250 MG PO (14:24)
== END 2019-11-27 14:29 | disposition home or self-care (01) ==
LOC: ED 13:02
DX: H65.93 Unspecified nonsuppurative otitis media, bilateral (principal); J32.9 Chronic sinusitis, unspecified; E11.9 Type 2 diabetes mellitus without complications; J44.9 Chronic obstructive pulmonary disease, unspecified; K21.9 Gastro-esophageal reflux disease without esophagitis; E03.9 Hypothyroidism, unspecified; G43.909 Migraine, unspecified, not intractable, without status migrainosus; E66.9 Obesity, unspecified; I10 Essential (primary) hypertension; Z79.4 Long term (current) use of insulin; Z88.6 Allergy status to analgesic agent; Z88.1 Allergy status to other antibiotic agents; Z88.8 Allergy status to other drugs, medicaments and biological substances; Z79.899 Other long term (current) drug therapy; Z79.82 Long term (current) use of aspirin; Z68.39 Body mass index [BMI] 39.0-39.9, adult; Z87.891 Personal history of nicotine dependence

== ENCOUNTER → 2020-01-02 | Outpatient (CLI) | payer OTHER ==
[~2020-01-02] MED LIST changes: +ZOLOFT100 MG PO
--- NOTE | 2020-01-02 08:44 | NUR ---
PT IN FOR MEDIPORT FLUSH. PORT ACCESSED BY FEDERICO ANTON RN. PORT ASPERATED WITH BLOOD BLOOD RETURN. PORT FLUSHED WITH NORAML SALINE, AND HEPERIN ORDERED. NEEDLE REMOVED AND BANDAGE PUT ON INISION SITE. PT TOLERATED PROCEEDURE.
== END | disposition home or self-care (01) ==
LOC: MEDIPORT 06:59
DX: Z45.2 Encounter for adjustment and management of vascular access device (principal); J44.1 Chronic obstructive pulmonary disease with (acute) exacerbation

== ENCOUNTER → 2020-02-09 | Outpatient (CLI) | payer OTHER ==
--- NOTE | 2020-02-09 13:23 | NUR ---
MEDIPORT FLUSHED PER POLICY AND PROCEDURE. NON CORIING NEEDLE USED AND REMOVED INTACT. PT TOLERATED WELL. TALIB FLYNN RN
== END | disposition home or self-care (01) ==
LOC: MEDIPORT 02-05 10:00
DX: I87.2 Venous insufficiency (chronic) (peripheral) (principal)

== ENCOUNTER 2020-02-25 10:01 | Emergency (ER) | payer OTHER ==
[~2020-02-25] VITALS: Wt 97.1 kg
[~2020-02-25 10:01] MED LIST changes: +LEVOTHYROXINE175 MCG PO; +LIPITOR20 MG PO; +NATURE'S BLEND F1 MG PO; +VITAMIN D350 MC1 PO
[2020-02-25 11:07] LABS: BASO % 0.6 % (0.0-1.0); EOS # 0.2 10*3/uL (0.0-0.4); EOS % 2.2 % (1.0-4.0); LYMPH # 1.7 10*3/uL (1.3-4.4); MEAN CELL VOLUME 91.1 fl (81.0-99.0); MEAN CORPUSCULAR HGB 30.8 pg (27.0-31.0); MEAN CORPUSCULAR HGB CONC 33.8 g/dl (33.0-37.0); MEAN PLATELET VOLUME 11.2 fl (9.6-12.3); MONO # 0.6 10*3/uL (0.1-1.0); MONO % 8.6 % (3.0-9.0); NEUT # 4.5 10*3/uL (2.3-7.9); NEUT % 64.2 % (47.0-73.0); PLATELET COUNT AUTOMATED 136 10*3/uL (130-400); RED BLOOD COUNT 4.39 10*6/uL (4.10-5.10); RED CELL DISTRI WIDTH 13.8 % (0-14.5)
[2020-02-25 11:17] LABS: ALBUMIN 3.4 gm/dl (3.1-4.5); ALKALINE PHOSPHATASE 115 U/L (45-117); BUN 14 mg/dl (7-24); CHLORIDE 105 mmol/L (98-107); CREATININE 1.11 mg/dL (0.55-1.02); POTASSIUM 3.8 mmol/L (3.5-5.1); SGOT/AST 15 IU/L (3-35); SGPT/ALT 26 U/L (12-78); SODIUM 137 mmol/L (136-145); TOTAL PROTEIN 7.1 gm/dL (6.4-8.2)
[2020-02-25] MEDS ORDERED: INDOMETHACIN ER75 M1 PO ×2 (12:42→13:16)
== END 2020-02-25 12:58 | disposition home or self-care (01) ==
LOC: ED 10:01
PROVIDERS: Physician Assistant
DX: E11.65 Type 2 diabetes mellitus with hyperglycemia (principal); M10.9 Gout, unspecified; I10 Essential (primary) hypertension; F41.9 Anxiety disorder, unspecified; F32.9 Major depressive disorder, single episode, unspecified; E78.00 Pure hypercholesterolemia, unspecified; J45.909 Unspecified asthma, uncomplicated; R56.9 Unspecified convulsions; Z88.5 Allergy status to narcotic agent; Z88.8 Allergy status to other drugs, medicaments and biological substances; Z79.899 Other long term (current) drug therapy; Z79.82 Long term (current) use of aspirin; Z90.49 Acquired absence of other specified parts of digestive tract

== ENCOUNTER 2020-02-27 14:27 | Emergency (ER) | payer OTHER ==
[~2020-02-27] VITALS: Ht 162.5 cm; Wt 97.1 kg
[~2020-02-27 14:27] MED LIST changes: +INDOMETHACIN ER75 M1 PO
[2020-02-27] MEDS ORDERED: CEPHALEXIN500 M1 PO (15:41)
== END 2020-02-27 15:48 | disposition home or self-care (01) ==
LOC: ED 14:27
DX: L60.0 Ingrowing nail (principal); E11.9 Type 2 diabetes mellitus without complications; Z88.5 Allergy status to narcotic agent; Z88.8 Allergy status to other drugs, medicaments and biological substances; Z88.1 Allergy status to other antibiotic agents; Z79.899 Other long term (current) drug therapy; Z79.2 Long term (current) use of antibiotics; Z90.49 Acquired absence of other specified parts of digestive tract; Z90.710 Acquired absence of both cervix and uterus

== ENCOUNTER → 2020-03-16 | Outpatient (CLI) | payer OTHER ==
[2020-03-16 13:09] LABS: BASO # 0.1 10*3/uL (0.0-0.1); BASO % 0.9 % (0.0-1.0); EOS # 0.2 10*3/uL (0.0-0.4); EOS % 2.2 % (1.0-4.0); HEMATOCRIT 41.5 % (37.0-47.0); LYMPH # 1.7 10*3/uL (1.3-4.4); MEAN CELL VOLUME 92.2 fl (81.0-99.0); MEAN CORPUSCULAR HGB 30.2 pg (27.0-31.0); MEAN CORPUSCULAR HGB CONC 32.8 g/dl (33.0-37.0); MEAN PLATELET VOLUME 11.5 fl (9.6-12.3); MONO # 0.5 10*3/uL (0.1-1.0); MONO % 7.9 % (3.0-9.0); NEUT # 4.5 10*3/uL (2.3-7.9); NEUT % 64.7 % (47.0-73.0); PLATELET COUNT AUTOMATED 137 10*3/uL (130-400); RED CELL DISTRI WIDTH 13.2 % (0-14.5); WHITE BLOOD COUNT 6.9 10*3/uL (4.8-10.8)
[2020-03-16 13:28] LABS: ALBUMIN 3.5 gm/dl (3.1-4.5); ALKALINE PHOSPHATASE 114 U/L (45-117); BUN 18 mg/dl (7-24); CHLORIDE 103 mmol/L (98-107); CHOLESTEROL 246 mg/dL (<200); CREATININE 0.99 mg/dL (0.55-1.02); HDL CHOLESTEROL 45 mg/dl (40-60); POTASSIUM 4.1 mmol/L (3.5-5.1); SGOT/AST 12 IU/L (3-35); SGPT/ALT 23 U/L (12-78); SODIUM 135 mmol/L (136-145); TOTAL PROTEIN 7.4 gm/dL (6.4-8.2); TRIGLYCERIDES 474 mg/dl (<150)
== END | disposition home or self-care (01) ==
LOC: LAB 12:02
PROVIDERS: Nurse Practitioner Primary Care
DX: Z45.2 Encounter for adjustment and management of vascular access device (principal); I10 Essential (primary) hypertension; E03.9 Hypothyroidism, unspecified; E55.9 Vitamin D deficiency, unspecified

== ENCOUNTER 2020-03-29 10:50 | Emergency (ER) | payer OTHER ==
[~2020-03-29] VITALS: Ht 162.5 cm; Wt 90.7 kg
== END 2020-03-29 12:50 | disposition home or self-care (01) ==
LOC: ED 10:50
DX: G43.909 Migraine, unspecified, not intractable, without status migrainosus (principal); R11.2 Nausea with vomiting, unspecified; E11.9 Type 2 diabetes mellitus without complications; I10 Essential (primary) hypertension; J44.9 Chronic obstructive pulmonary disease, unspecified; Z88.6 Allergy status to analgesic agent; Z88.1 Allergy status to other antibiotic agents; Z88.8 Allergy status to other drugs, medicaments and biological substances; Z79.899 Other long term (current) drug therapy; Z79.82 Long term (current) use of aspirin; Z87.891 Personal history of nicotine dependence

== ENCOUNTER → 2020-06-07 | Outpatient (CLI) | payer OTHER ==
--- NOTE | 2020-06-07 10:22 | NUR ---
1022- [facility] ACCESSED WITH NON-CORING AFTER CLEANSING WITH CHLORAPREP. PROMPT BLOOD RETURN OBTAINED AND FLUSHED PER POLICY. NON-CORING NEEDLE WITHDRAWN INTACT AND BANDAID TO SITE. DISCHARGED AMBULATORY.
== END | disposition home or self-care (01) ==
LOC: MEDIPORT 10:00
PROVIDERS: ATTEND Internal Medicine
DX: I87.2 Venous insufficiency (chronic) (peripheral) (principal)

== ENCOUNTER 2020-08-18 18:59 | Emergency (ER) | payer OTHER ==
[2020-08-18 19:20] LABS: BASO % 0.5 % (0.0-1.0); EOS # 0.1 10*3/uL (0.0-0.4); EOS % 1.5 % (1.0-4.0); HEMATOCRIT 45.9 % (37.0-47.0); LYMPH # 1.6 10*3/uL (1.3-4.4); LYMPH % 18.5 % (27.0-41.0); MEAN CELL VOLUME 88.3 fl (81.0-99.0); MEAN CORPUSCULAR HGB 29.2 pg (27.0-31.0); MEAN CORPUSCULAR HGB CONC 33.1 g/dl (33.0-37.0); MEAN PLATELET VOLUME 9.8 fl (9.6-12.3); MONO # 0.6 10*3/uL (0.1-1.0); MONO % 6.6 % (3.0-9.0); NEUT # 6.3 10*3/uL (2.3-7.9); NEUT % 72.6 % (47.0-73.0); PLATELET COUNT AUTOMATED 144 10*3/uL (130-400); RED CELL DISTRI WIDTH 13.6 % (0-14.5); WHITE BLOOD COUNT 8.6 10*3/uL (4.8-10.8)
[2020-08-18 19:32] LABS: ACT PARTIAL THROMBO TIME 27.2 SECONDS (20.0-32.1)
[2020-08-18 19:44] LABS: ALBUMIN 3.8 gm/dl (3.1-4.5); ALKALINE PHOSPHATASE 145 U/L (45-117); BUN 15 mg/dl (7-24); CHLORIDE 101 mmol/L (98-107); CREATININE 1.04 mg/dL (0.55-1.02); POTASSIUM 3.9 mmol/L (3.5-5.1); SGOT/AST 13 IU/L (3-35); SGPT/ALT 27 U/L (12-78); SODIUM 133 mmol/L (136-145)
[2020-08-18 19:46] LABS: TROPONIN I < 0.015 ng/ml (<0.045)
== END 2020-08-19 00:45 | disposition home or self-care (01) ==
LOC: ED 18:59
PROVIDERS: Emergency Medicine
DX: R07.9 Chest pain, unspecified (principal); M10.9 Gout, unspecified; J44.9 Chronic obstructive pulmonary disease, unspecified; I12.9 Hypertensive chronic kidney disease with stage 1 through stage 4 chronic kidney disease, or unspecified chronic kidney disease; E11.22 Type 2 diabetes mellitus with diabetic chronic kidney disease; N18.30 Chronic kidney disease, stage 3 unspecified; K21.9 Gastro-esophageal reflux disease without esophagitis; E03.9 Hypothyroidism, unspecified; F32.9 Major depressive disorder, single episode, unspecified; Z88.5 Allergy status to narcotic agent; Z88.8 Allergy status to other drugs, medicaments and biological substances; Z79.899 Other long term (current) drug therapy; Z79.82 Long term (current) use of aspirin

== ENCOUNTER → 2020-08-27 | Outpatient (CLI) | payer OTHER | END | disposition home or self-care (01) | LOC: MEDIPORT 08-12 09:00 | PROVIDERS: ATTEND Nurse Practitioner Primary Care | DX: Z45.2 Encounter for adjustment and management of vascular access device (principal); I87.2 Venous insufficiency (chronic) (peripheral) ==

== ENCOUNTER → 2020-10-15 | Outpatient (CLI) | payer MEDICARE, MEDICAID | END | disposition home or self-care (01) | LOC: MEDIPORT 10-01 09:00 | PROVIDERS: ATTEND Nurse Practitioner Primary Care | DX: Z45.2 Encounter for adjustment and management of vascular access device (principal); I87.2 Venous insufficiency (chronic) (peripheral) ==

== ENCOUNTER 2020-11-13 16:57 | Emergency (ER) | payer MEDICARE, MEDICAID ==
[~2020-11-13] VITALS: Ht 162.5 cm; Wt 90.3 kg
== END 2020-11-13 19:39 | disposition home or self-care (01) ==
LOC: ED 16:57
DX: M25.812 Other specified joint disorders, left shoulder (principal); M25.811 Other specified joint disorders, right shoulder; E11.9 Type 2 diabetes mellitus without complications; I10 Essential (primary) hypertension; J44.9 Chronic obstructive pulmonary disease, unspecified; F41.9 Anxiety disorder, unspecified; F32.9 Major depressive disorder, single episode, unspecified; E78.00 Pure hypercholesterolemia, unspecified; F17.200 Nicotine dependence, unspecified, uncomplicated; Z88.8 Allergy status to other drugs, medicaments and biological substances; Z88.5 Allergy status to narcotic agent; Z79.899 Other long term (current) drug therapy; Z79.82 Long term (current) use of aspirin; Z90.49 Acquired absence of other specified parts of digestive tract; Z98.890 Other specified postprocedural states; Z90.711 Acquired absence of uterus with remaining cervical stump

== ENCOUNTER 2020-12-10 21:15 | Emergency (ER) | payer MEDICARE, MEDICAID ==
[2020-12-10] MEDS ORDERED: SEPTDS PO (22:32)
[2020-12-10] MEDS ORDERED: CEPHALEXIN500 M1 PO (22:32)
== END 2020-12-10 22:39 | disposition left against medical advice (07) ==
LOC: ED 21:15
DX: L73.9 Follicular disorder, unspecified (principal); E11.9 Type 2 diabetes mellitus without complications; I10 Essential (primary) hypertension; J44.9 Chronic obstructive pulmonary disease, unspecified; F41.9 Anxiety disorder, unspecified; F32.9 Major depressive disorder, single episode, unspecified; E78.00 Pure hypercholesterolemia, unspecified; Z88.5 Allergy status to narcotic agent; Z88.8 Allergy status to other drugs, medicaments and biological substances; Z79.899 Other long term (current) drug therapy; Z79.82 Long term (current) use of aspirin; Z90.49 Acquired absence of other specified parts of digestive tract; Z98.890 Other specified postprocedural states; Z90.711 Acquired absence of uterus with remaining cervical stump; Z87.891 Personal history of nicotine dependence

== ENCOUNTER 2021-12-27 10:36 | Inpatient (IN) | payer MEDICARE ==
[~2021-12-27] VITALS: Ht 160 cm; Wt 87.1 kg
[2021-12-27 10:41] VITALS: BP 130/72
[2021-12-27] MEDS ORDERED: LEVOTHYROXINE200 MC2 PO (10:48)
[2021-12-27] MEDS ORDERED: DOXEPIN50 MG PO (10:50)
[2021-12-27] MEDS ORDERED: CITALOPRAM20 MG PO (10:50)
[2021-12-27] MEDS ORDERED: RISPERDAL3 M1 PO (10:51)
[2021-12-27] MEDS ORDERED: LAMOTRIGINE150 MG PO (10:51)
[2021-12-27 11:45] LABS: BASO % 0.4 % (0.0-1.0); HEMATOCRIT 45.4 % (37.0-47.0); LYMPH # 1.5 10*3/uL (1.3-4.4); LYMPH % 19.9 % (27.0-41.0); MEAN CELL VOLUME 91.3 fl (81.0-99.0); MEAN CORPUSCULAR HGB 30.2 pg (27.0-31.0); MEAN PLATELET VOLUME 11.2 fl (9.6-12.3); MONO # 0.6 10*3/uL (0.1-1.0); MONO % 8.1 % (3.0-9.0); NEUT # 5.3 10*3/uL (2.3-7.9); NEUT % 71.2 % (47.0-73.0); PLATELET COUNT AUTOMATED 139 10*3/uL (130-400); RED BLOOD COUNT 4.97 10*6/uL (4.10-5.10); RED CELL DISTRI WIDTH 12.8 % (0-14.5); WHITE BLOOD COUNT 7.4 10*3/uL (4.8-10.8)
[2021-12-27 11:50] LABS: BILIRUBIN Negative (Negative); BLOOD Negative (Negative); CLARITY Clear (Clear); COLOR Yellow (Yellow); GLUCOSE 3+ (Negative); KETONE Trace (Negative); LEUKO ESTERASE 1+ (Negative); NITRITE Negative (Negative); PH 5.5 (4.5-8.0); SPECIFIC GRAVITY >= 1.030 (1.001-1.030); UROBILINOGEN 0.2 E.U./dl (0.0-1.0)
[2021-12-27 12:00] LABS: CREATININE 1.16 mg/dL (0.55-1.02); POTASSIUM 4.2 mmol/L (3.5-5.1); TOTAL PROTEIN 7.9 gm/dL (6.4-8.2)
[2021-12-27 12:19] LABS: BACTERIA 2+; WBC 21-30 wbc/hpf (0-5)
[2021-12-27 14:45] VITALS: BP 114/65
[2021-12-27] MEDS ORDERED: TOPIRAMATE100 M1 PO (14:49)
[2021-12-27 17:15] VITALS: BP 135/72
[2021-12-27 20:00] VITALS: BP 128/67
[2021-12-28] VITALS: BP 131/65
[2021-12-28 05:55] LABS: ALKALINE PHOSPHATASE 106 U/L (45-117); BUN 12 mg/dl (7-24); CHLORIDE 108 mmol/L (98-107); CHOLESTEROL 272 mg/dL (<200); LDL CHOLESTEROL 170 mg/dL (9-159); POTASSIUM 3.4 mmol/L (3.5-5.1); SGOT/AST 15 IU/L (3-35); SGPT/ALT 19 U/L (12-78); SODIUM 139 mmol/L (136-145); TOTAL PROTEIN 6.8 gm/dL (6.4-8.2); TRIGLYCERIDES 317 mg/dl (<150)
[2021-12-28 06:22] LABS: ACT PARTIAL THROMBO TIME 30.4 SECONDS (20.0-32.1)
[2021-12-28 06:28] LABS: BASO % 0.7 % (0.0-1.0); HEMATOCRIT 41.1 % (37.0-47.0); LYMPH # 1.7 10*3/uL (1.3-4.4); LYMPH % 32.4 % (27.0-41.0); MEAN CELL VOLUME 89.5 fl (81.0-99.0); MEAN CORPUSCULAR HGB 29.8 pg (27.0-31.0); MEAN CORPUSCULAR HGB CONC 33.3 g/dl (33.0-37.0); MEAN PLATELET VOLUME 11.5 fl (9.6-12.3); MONO # 0.6 10*3/uL (0.1-1.0); NEUT # 2.9 10*3/uL (2.3-7.9); NEUT % 54.7 % (47.0-73.0); PLATELET COUNT AUTOMATED 149 10*3/uL (130-400); RED BLOOD COUNT 4.59 10*6/uL (4.10-5.10); RED CELL DISTRI WIDTH 12.9 % (0-14.5); WHITE BLOOD COUNT 5.3 10*3/uL (4.8-10.8)
[2021-12-28 07:02] LABS: VITAMIN D, 25-HYDROXY 12.7 ng/mL (30-100)
[2021-12-28 08:00] VITALS: BP 120/57
[2021-12-28 12:00] VITALS: BP 98/55
[2021-12-28 16:00] VITALS: BP 132/75
[2021-12-28 20:00] VITALS: BP 136/75
[2021-12-29] VITALS: BP 136/76
[2021-12-29 06:06] LABS: BUN 12 mg/dl (7-24); CHLORIDE 108 mmol/L (98-107); POTASSIUM 3.5 mmol/L (3.5-5.1); SODIUM 139 mmol/L (136-145)
[2021-12-29 06:09] LABS: CREATININE 0.63 mg/dL (0.55-1.02)
[2021-12-29 06:35] LABS: BASO % 0.5 % (0.0-1.0); HEMATOCRIT 41.2 % (37.0-47.0); LYMPH # 1.4 10*3/uL (1.3-4.4); LYMPH % 25.6 % (27.0-41.0); MEAN CORPUSCULAR HGB 30.1 pg (27.0-31.0); MEAN CORPUSCULAR HGB CONC 33.5 g/dl (33.0-37.0); MEAN PLATELET VOLUME 11.5 fl (9.6-12.3); MONO # 0.7 10*3/uL (0.1-1.0); MONO % 12.1 % (3.0-9.0); NEUT # 3.5 10*3/uL (2.3-7.9); NEUT % 61.6 % (47.0-73.0); PLATELET COUNT AUTOMATED 147 10*3/uL (130-400); RED BLOOD COUNT 4.58 10*6/uL (4.10-5.10); RED CELL DISTRI WIDTH 12.8 % (0-14.5); WHITE BLOOD COUNT 5.6 10*3/uL (4.8-10.8)
[2021-12-29 08:00] VITALS: BP 133/82
[2021-12-29 12:00] VITALS: BP 130/80
[2021-12-29 16:00] VITALS: BP 127/84
[2021-12-29 20:00] VITALS: BP 109/59
[2021-12-30] VITALS: BP 116/56
[2021-12-30 08:00] VITALS: BP 128/78
[2021-12-30] MEDS ORDERED: ASPIRIN ADULT L81 M2 PO (10:52)
[2021-12-30] MEDS ORDERED: ATORVASTATIN CA80 M1 PO (10:52)
[2021-12-30] MEDS ORDERED: VITAMIN D3125 MC1 PO (10:52)
[2021-12-30 12:00] VITALS: BP 101/65
== END 2021-12-30 12:38 | DRG 637 ==
LOC: ED 10:36 → 5E 14:25 → EDHOLD 14:25 → 5E 15:16
PROVIDERS: Family Medicine; Hospitalist; Physician Assistant; ADMIT Internal Medicine; ATTEND Internal Medicine
DX: E11.10 Type 2 diabetes mellitus with ketoacidosis without coma (principal); G93.41 Metabolic encephalopathy; E87.1 Hypo-osmolality and hyponatremia; N30.00 Acute cystitis without hematuria; F33.9 Major depressive disorder, recurrent, unspecified; E86.0 Dehydration; Z66 Do not resuscitate; I12.9 Hypertensive chronic kidney disease with stage 1 through stage 4 chronic kidney disease, or unspecified chronic kidney disease; J30.9 Allergic rhinitis, unspecified; E11.22 Type 2 diabetes mellitus with diabetic chronic kidney disease; N18.30 Chronic kidney disease, stage 3 unspecified; J44.9 Chronic obstructive pulmonary disease, unspecified; E78.1 Pure hyperglyceridemia; Z20.822 Contact with and (suspected) exposure to COVID-19; Z88.5 Allergy status to narcotic agent; Z88.1 Allergy status to other antibiotic agents; Z88.8 Allergy status to other drugs, medicaments and biological substances; Z90.49 Acquired absence of other specified parts of digestive tract; Z79.4 Long term (current) use of insulin; Z90.710 Acquired absence of both cervix and uterus; Z87.891 Personal history of nicotine dependence; Z79.899 Other long term (current) drug therapy; Z82.49 Family history of ischemic heart disease and other diseases of the circulatory system

== ENCOUNTER 2022-04-25 14:14 | Emergency (ER) | payer MEDICARE ==
[~2022-04-25] VITALS: Ht 162.5 cm; Wt 89.8 kg
[~2022-04-25 14:14] MED LIST changes: +ASPIRIN ADULT L81 M2 PO; +ATORVASTATIN CA80 M1 PO; +CITALOPRAM20 MG PO; +DOXEPIN50 MG PO; +LAMOTRIGINE150 MG PO; +LEVOTHYROXINE200 MC2 PO; +RISPERDAL3 M1 PO; +TOPIRAMATE100 M1 PO; +VITAMIN D3125 MC1 PO
[2022-04-25] MEDS ORDERED: LANTUS SOL100 UNIT/1 SC (14:36)
[2022-04-25 16:25] LABS: BASO % 0.6 % (0.0-1.0); EOS % 0.3 % (1.0-4.0); HEMATOCRIT 40.4 % (37.0-47.0); LYMPH # 1.8 10*3/uL (1.3-4.4); LYMPH % 27.2 % (27.0-41.0); MEAN CELL VOLUME 89.2 fl (81.0-99.0); MEAN CORPUSCULAR HGB CONC 33.7 g/dl (33.0-37.0); MONO # 0.6 10*3/uL (0.1-1.0); MONO % 8.8 % (3.0-9.0); NEUT # 4.1 10*3/uL (2.3-7.9); NEUT % 62.8 % (47.0-73.0); PLATELET COUNT AUTOMATED 138 10*3/uL (130-400); RED BLOOD COUNT 4.53 10*6/uL (4.10-5.10); RED CELL DISTRI WIDTH 13.6 % (0-14.5); WHITE BLOOD COUNT 6.5 10*3/uL (4.8-10.8)
[2022-04-25 16:34] LABS: ACT PARTIAL THROMBO TIME 25.5 SECONDS (20.0-32.1)
[2022-04-25 16:39] LABS: ALKALINE PHOSPHATASE 112 U/L (45-117); BUN 23 mg/dl (7-24); CHLORIDE 100 mmol/L (98-107); CREATININE 1.11 mg/dL (0.55-1.02); LIPASE 201 U/L (73-393); POTASSIUM 4.2 mmol/L (3.5-5.1); SGOT/AST 13 IU/L (3-35); SGPT/ALT 19 U/L (12-78); SODIUM 134 mmol/L (136-145); TOTAL PROTEIN 7.3 gm/dL (6.4-8.2)
[2022-04-25 17:10] LABS: BILIRUBIN Negative (Negative); BLOOD Negative (Negative); CLARITY Clear (Clear); COLOR Yellow (Yellow); GLUCOSE 3+ (Negative); KETONE Negative (Negative); LEUKO ESTERASE 1+ (Negative); NITRITE Negative (Negative); SPECIFIC GRAVITY 1.025 (1.001-1.030); UROBILINOGEN 0.2 E.U./dl (0.0-1.0)
[2022-04-25 17:20] LABS: BACTERIA 2+; WBC 31-40 wbc/hpf (0-5)
== END 2022-04-25 18:42 | disposition home or self-care (01) ==
LOC: ED 14:14
PROVIDERS: Emergency Medicine
DX: E11.65 Type 2 diabetes mellitus with hyperglycemia (principal); I10 Essential (primary) hypertension; J44.9 Chronic obstructive pulmonary disease, unspecified; J45.909 Unspecified asthma, uncomplicated; Z88.1 Allergy status to other antibiotic agents; Z88.8 Allergy status to other drugs, medicaments and biological substances; Z79.899 Other long term (current) drug therapy; Z90.49 Acquired absence of other specified parts of digestive tract; Z98.890 Other specified postprocedural states; Z90.710 Acquired absence of both cervix and uterus; Z90.89 Acquired absence of other organs

== ENCOUNTER → 2022-05-26 | Outpatient (CLI) | payer MEDICARE ==
[~2022-05-26] MED LIST changes: +LANTUS SOL100 UNIT/1 SC
== END | disposition home or self-care (01) ==
LOC: MEDIPORT 05-11 10:00
PROVIDERS: ATTEND Physician Assistant
DX: Z95.828 Presence of other vascular implants and grafts (principal)

== ENCOUNTER → 2022-10-31 | Outpatient (CLI) | payer MEDICARE ==
[2022-10-31 10:50] VITALS: BP 170/85
== END | disposition home or self-care (01) ==
LOC: MEDIPORT 10:22
PROVIDERS: ATTEND Internal Medicine
DX: Z45.2 Encounter for adjustment and management of vascular access device (principal); I10 Essential (primary) hypertension; E10.9 Type 1 diabetes mellitus without complications; J43.9 Emphysema, unspecified; Z79.4 Long term (current) use of insulin

== ENCOUNTER → 2022-12-12 | Outpatient (CLI) | payer MEDICARE | END | disposition home or self-care (01) | LOC: MEDIPORT 10:00 | PROVIDERS: ATTEND Internal Medicine | DX: Z95.828 Presence of other vascular implants and grafts (principal) ==

== ENCOUNTER → 2023-01-30 | Outpatient (CLI) | payer MEDICARE, MEDICAID | END | disposition home or self-care (01) | LOC: MEDIPORT 01-23 10:00 | PROVIDERS: ATTEND Internal Medicine | DX: Z85.828 Personal history of other malignant neoplasm of skin (principal) ==

== ENCOUNTER → 2023-03-01 | Outpatient (CLI) | payer MEDICARE, MEDICAID ==
[2023-03-01 11:06] VITALS: BP 145/79
== END | disposition home or self-care (01) ==
LOC: MEDIPORT 01:36
PROVIDERS: ATTEND Internal Medicine
DX: Z45.2 Encounter for adjustment and management of vascular access device (principal)

== ENCOUNTER → 2023-04-20 | Outpatient (CLI) | payer MEDICARE, MEDICAID ==
[2023-04-20 12:04] LABS: BASO # 0.1 10*3/uL (0.0-0.1); BASO % 0.7 % (0.0-1.0); EOS # 0.1 10*3/uL (0.0-0.4); HEMATOCRIT 48.2 % (37.0-47.0); LYMPH # 1.7 10*3/uL (1.3-4.4); LYMPH % 20.5 % (27.0-41.0); MEAN CELL VOLUME 94.1 fl (81.0-99.0); MEAN CORPUSCULAR HGB 30.9 pg (27.0-31.0); MEAN CORPUSCULAR HGB CONC 32.8 g/dl (33.0-37.0); MEAN PLATELET VOLUME 11.2 fl (9.6-12.3); MONO # 0.7 10*3/uL (0.1-1.0); MONO % 8.6 % (3.0-9.0); NEUT # 5.5 10*3/uL (2.3-7.9); NEUT % 68.8 % (47.0-73.0); PLATELET COUNT AUTOMATED 160 10*3/uL (130-400); RED BLOOD COUNT 5.12 10*6/uL (4.10-5.10); RED CELL DISTRI WIDTH 13.6 % (0-14.5); WHITE BLOOD COUNT 8.1 10*3/uL (4.8-10.8)
[2023-04-20 12:54] LABS: POTASSIUM 3.8 mmol/L (3.4-5.1)
[2023-04-20 13:11] LABS: FREE T4 1.14 ng/dl (0.89-1.76)
== END | disposition home or self-care (01) ==
LOC: LAB 11:15
PROVIDERS: ATTEND Internal Medicine
DX: E11.9 Type 2 diabetes mellitus without complications (principal)

== ENCOUNTER → 2023-05-24 | Outpatient (CLI) | payer MEDICARE, MEDICAID | END | disposition home or self-care (01) | LOC: MEDIPORT 01:04 | PROVIDERS: ATTEND Internal Medicine | DX: Z45.2 Encounter for adjustment and management of vascular access device (principal) ==

== ENCOUNTER → 2024-08-06 | Outpatient (CLI) | payer MEDICARE, MEDICAID ==
[~2024-08-06] MED LIST changes: +DOXEPIN HCL100 MG PO; -DOXEPIN50 MG PO; +JARDIANCE25 MG PO; +LAMICTAL150 MG PO; +VANCOMYCIN1.5 GM/300 IV
== END | disposition home or self-care (01) ==
LOC: LAB 13:34
PROVIDERS: ATTEND Physician Assistant
DX: Z51.81 Encounter for therapeutic drug level monitoring (principal); Z79.899 Other long term (current) drug therapy

== ENCOUNTER → 2024-10-21 | Outpatient (CLI) | payer MEDICARE, MEDICAID | END | disposition home or self-care (01) | LOC: WOUNDCARE 02:16 | PROVIDERS: ATTEND Nurse Practitioner Family | DX: L89.616 Pressure-induced deep tissue damage of right heel (principal); E03.9 Hypothyroidism, unspecified; M54.50 Low back pain, unspecified; E11.22 Type 2 diabetes mellitus with diabetic chronic kidney disease; Z90.49 Acquired absence of other specified parts of digestive tract; Z90.710 Acquired absence of both cervix and uterus; Z98.890 Other specified postprocedural states; Z87.891 Personal history of nicotine dependence; Z79.82 Long term (current) use of aspirin; Z79.899 Other long term (current) drug therapy ==

== ENCOUNTER → 2024-10-28 | Outpatient (CLI) | payer MEDICARE, MEDICAID | END | disposition home or self-care (01) | LOC: WOUNDCARE 01:18 | PROVIDERS: ATTEND Nurse Practitioner Family | DX: L89.616 Pressure-induced deep tissue damage of right heel (principal); R60.9 Edema, unspecified; E11.9 Type 2 diabetes mellitus without complications; E03.9 Hypothyroidism, unspecified; M54.50 Low back pain, unspecified; F31.9 Bipolar disorder, unspecified; Z90.49 Acquired absence of other specified parts of digestive tract; Z90.710 Acquired absence of both cervix and uterus; Z98.890 Other specified postprocedural states; Z87.891 Personal history of nicotine dependence; Z79.82 Long term (current) use of aspirin; Z79.899 Other long term (current) drug therapy ==

== ENCOUNTER → 2024-11-04 | Outpatient (CLI) | payer MEDICARE, MEDICAID | END | disposition home or self-care (01) | LOC: WOUNDCARE 01:37 | PROVIDERS: ATTEND Nurse Practitioner Family | DX: L89.616 Pressure-induced deep tissue damage of right heel (principal); E11.9 Type 2 diabetes mellitus without complications; E03.9 Hypothyroidism, unspecified; F31.9 Bipolar disorder, unspecified; Z87.891 Personal history of nicotine dependence; Z90.49 Acquired absence of other specified parts of digestive tract; Z90.710 Acquired absence of both cervix and uterus; Z98.890 Other specified postprocedural states; Z79.82 Long term (current) use of aspirin; Z79.899 Other long term (current) drug therapy ==

== ENCOUNTER → 2024-11-18 | Outpatient (CLI) | payer MEDICARE, OTHER | END | disposition home or self-care (01) | LOC: WOUNDCARE 01:41 | PROVIDERS: ATTEND Nurse Practitioner Family | DX: L89.616 Pressure-induced deep tissue damage of right heel (principal); R60.9 Edema, unspecified; E11.9 Type 2 diabetes mellitus without complications; E03.9 Hypothyroidism, unspecified; F31.9 Bipolar disorder, unspecified; Z87.891 Personal history of nicotine dependence; Z90.49 Acquired absence of other specified parts of digestive tract; Z90.710 Acquired absence of both cervix and uterus; Z98.890 Other specified postprocedural states; Z79.82 Long term (current) use of aspirin; Z79.899 Other long term (current) drug therapy ==

== ENCOUNTER → 2024-11-25 | Outpatient (CLI) | payer MEDICARE, OTHER | END | disposition home or self-care (01) | LOC: WOUNDCARE 01:58 | PROVIDERS: ATTEND Nurse Practitioner Family | DX: L89.616 Pressure-induced deep tissue damage of right heel (principal); R60.9 Edema, unspecified; E11.9 Type 2 diabetes mellitus without complications; E03.9 Hypothyroidism, unspecified; F31.9 Bipolar disorder, unspecified; Z87.891 Personal history of nicotine dependence; Z90.49 Acquired absence of other specified parts of digestive tract; Z90.710 Acquired absence of both cervix and uterus; Z98.890 Other specified postprocedural states; Z79.82 Long term (current) use of aspirin; Z79.899 Other long term (current) drug therapy ==

== ENCOUNTER → 2024-12-02 | Outpatient (CLI) | payer MEDICARE, OTHER | END | disposition home or self-care (01) | LOC: WOUNDCARE 01:14 | PROVIDERS: ATTEND Nurse Practitioner Family | DX: L89.616 Pressure-induced deep tissue damage of right heel (principal); R60.9 Edema, unspecified; E11.9 Type 2 diabetes mellitus without complications; E03.9 Hypothyroidism, unspecified; M54.50 Low back pain, unspecified; F31.9 Bipolar disorder, unspecified; Z90.49 Acquired absence of other specified parts of digestive tract; Z90.710 Acquired absence of both cervix and uterus; Z98.890 Other specified postprocedural states; Z79.82 Long term (current) use of aspirin; Z79.899 Other long term (current) drug therapy; Z87.891 Personal history of nicotine dependence ==

== ENCOUNTER → 2024-12-09 | Outpatient (CLI) | payer MEDICARE, OTHER | END | disposition home or self-care (01) | LOC: WOUNDCARE 02:19 | PROVIDERS: ATTEND Nurse Practitioner Family | DX: L89.616 Pressure-induced deep tissue damage of right heel (principal); R60.9 Edema, unspecified; E11.9 Type 2 diabetes mellitus without complications; E03.9 Hypothyroidism, unspecified; F31.9 Bipolar disorder, unspecified; E07.9 Disorder of thyroid, unspecified; Z90.710 Acquired absence of both cervix and uterus; Z90.49 Acquired absence of other specified parts of digestive tract; Z98.890 Other specified postprocedural states; Z87.891 Personal history of nicotine dependence; Z79.82 Long term (current) use of aspirin; Z79.899 Other long term (current) drug therapy ==

== ENCOUNTER → 2024-12-16 | Outpatient (CLI) | payer MEDICARE, OTHER | END | disposition home or self-care (01) | LOC: WOUNDCARE 02:07 | PROVIDERS: ATTEND Nurse Practitioner Family | DX: L89.616 Pressure-induced deep tissue damage of right heel (principal); E11.9 Type 2 diabetes mellitus without complications; E03.9 Hypothyroidism, unspecified; F31.9 Bipolar disorder, unspecified; Z90.49 Acquired absence of other specified parts of digestive tract; Z90.710 Acquired absence of both cervix and uterus; Z98.890 Other specified postprocedural states; Z87.891 Personal history of nicotine dependence; Z79.82 Long term (current) use of aspirin; Z79.899 Other long term (current) drug therapy ==

== ENCOUNTER → 2025-04-16 | Outpatient (CLI) | payer MEDICARE, OTHER ==
[2025-04-16 09:11] LABS: BASO # 0.1 10*3/uL (0.0-0.1); BASO % 0.7 % (0.0-1.0); EOS # 0.2 10*3/uL (0.0-0.4); EOS % 3.4 % (1.0-4.0); MEAN CELL VOLUME 102.2 fl (81.0-99.0); MEAN CORPUSCULAR HGB 32.7 pg (27.0-31.0); MEAN PLATELET VOLUME 11.3 fl (9.6-12.3); MONO # 0.5 10*3/uL (0.1-1.0); MONO % 7.0 % (3.0-9.0); NEUT # 4.0 10*3/uL (2.3-7.9); NEUT % 60.0 % (47.0-73.0); NUCLEATED RED BLOOD CELL 0.0 % (0.0-0.0); NUCLEATED RED BLOOD CELL 0.0 10*3/uL (0.0-0.0); PLATELET COUNT AUTOMATED 143 10*3/uL (130-400); RED CELL DISTRI WIDTH 15.0 % (0-14.5)
[2025-04-16 09:36] LABS: BUN 21 mg/dl (9-23); LDL CHOLESTEROL 238 mg/dL (9-159); SGPT/ALT 37 U/L (5-49)
[2025-04-16 09:55] LABS: VITAMIN D, 25-HYDROXY 26.1 ng/mL (30-100)
== END | disposition home or self-care (01) ==
LOC: LAB 08:30
PROVIDERS: ATTEND Internal Medicine
DX: E11.9 Type 2 diabetes mellitus without complications (principal); E78.00 Pure hypercholesterolemia, unspecified; E55.9 Vitamin D deficiency, unspecified; E03.9 Hypothyroidism, unspecified; F31.9 Bipolar disorder, unspecified